=== PATIENT | male | born 1995 | race Caucasian/White ===

== ENCOUNTER 2017-10-19 18:15 | Emergency (ER) | payer OTHER ==
[~2017-10-19] VITALS: Ht 177.8 cm; Wt 99.0 kg
[2017-10-19 18:52] VITALS: BP 162/103; PULSE 96; RESP 18; TEMP 98.4; O2SAT 93
[2017-10-19] MEDS ORDERED: SERT25TA83 PO (19:45)
[2017-10-19 20:09] LABS: AUTOMATED NEUTROPHIL # 15.1 TH/MM3 (1.8-7.7); BASOPHIL % 0.2 % (0.0-2.0); EOSINOPHIL # 0.1 TH/MM3 (0-0.4); EOSINOPHIL % 0.6 % (0.0-4.0); HEMATOCRIT 52.2 % (39.0-51.0); LYMPH % 13.3 % (9.0-44.0); LYMPHOCYTE # 2.5 TH/MM3 (1.0-4.8); MEAN CORPUSCULAR HEMOGLOBIN 30.4 PG (27.0-34.0); MEAN CORPUSCULAR HGB CONC 34.5 % (32.0-36.0); MEAN PLATELET VOLUME 9.4 FL (7.0-11.0); MONO % 5.8 % (0.0-8.0); MONOCYTE # 1.1 TH/MM3 (0-0.9); NEUT % 80.1 % (16.0-70.0); PLATELET COUNT 276 TH/MM3 (150-450); RED BLOOD COUNT 5.92 MIL/MM3 (4.50-5.90); RED CELL DISTRIBUTION WIDTH 13.3 % (11.6-17.2); WHITE BLOOD COUNT 18.8 TH/MM3 (4.0-11.0)
[2017-10-19 20:15] LABS: ALBUMIN 4.5 GM/DL (3.4-5.0); AST (GOT) 20 U/L (15-37); BICARBONATE 23.9 MEQ/L (21.0-32.0); BLOOD UREA NITROGEN 17 MG/DL (7-18); CALCIUM 9.9 MG/DL (8.5-10.1); CHLORIDE 107 MEQ/L (98-107); CREATININE 0.92 MG/DL (0.60-1.30); GLOMERULAR FILTRATION RATE 104 ML/MIN (>89); GLUCOSE,RANDOM 107 MG/DL (74-106); SODIUM (NA) 139 MEQ/L (136-145)
[2017-10-19 20:17] LABS: ALKALINE PHOSPHATASE 123 U/L (45-117); ALT (GPT) 24 U/L (12-78); TOTAL BILIRUBIN ADULT 0.8 MG/DL (0.2-1.0); TOTAL PROTEIN 8.3 GM/DL (6.4-8.2)
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
== END 2017-10-19 21:15 | disposition home or self-care (01) ==
LOC: NEPJ 18:15
DX: F31.70 Bipolar disorder, currently in remission, most recent episode unspecified (principal); F43.10 Post-traumatic stress disorder, unspecified; Z79.899 Other long term (current) drug therapy
CPT/HCPCS: 80053; 80307; 85025; 99284

== ENCOUNTER 2017-12-07 14:13 | Emergency (ER) | payer SELFPAY ==
[~2017-12-07] VITALS: Ht 167.6 cm; Wt 100.0 kg
[~2017-12-07 14:13] MED LIST: SERT25TA83 PO
[2017-12-07 14:27] VITALS: BP 138/70; PULSE 107; RESP 22; TEMP 87; O2SAT 97
--- NOTE | 2017-12-07 16:24 | PD ---
HPI Chief Complaint: Alcohol/Drug Intoxication Time Seen by Provider: 15:15 Travel History International Travel<30 days: No Contact w/Intl Traveler<30days: No Traveled to known affect area: No History of Present Illness HPI 22-year-old male with history of bipolar disorder not taking his medications, presents emergency department under a [place] act. Patient has been drinking alcohol today. He denies suicidal homicidal ideations. He denies any illicit drug use at this time. He has no other symptoms to report. [facility] Past Medical History Anxiety: Yes Depression: Yes Diabetes: No Diminished Hearing: No Psychiatric: Yes Immunizations Current: Yes Tetanus Vaccination: < 5 Years Social History Alcohol Use: Yes Tobacco Use: Yes Substance Use: Yes Allergies-Medications (Allergen,Severity, Reaction): Coded Allergies: Penicillins (Verified Allergy, Severe, 12/07/17) Reported Meds & Prescriptions Reported Meds & Active Scripts Active Reported Sertraline (Sertraline HCl) 25 Mg Tab 25 Mg PO DAILY Review of Systems Except as stated in HPI: all other systems reviewed are Neg Physical Exam Narrative GENERAL: Well-nourished male patient, with strong smell of alcohol, dried vomit on history of. SKIN: Focused skin assessment warm/dry. HEAD: Atraumatic. Normocephalic. EYES: Pupils equal and round. No scleral icterus. No injection or drainage. ENT: No nasal bleeding or discharge. Mucous membranes pink and moist. NECK: Trachea midline. No JVD. CARDIOVASCULAR: Elevated rate and rhythm. No murmur appreciated. RESPIRATORY: No accessory muscle use. Clear to auscultation. Breath sounds equal bilaterally. GASTROINTESTINAL: Abdomen soft, non-tender, nondistended. Hepatic and splenic margins not palpable. MUSCULOSKELETAL: No obvious deformities. No clubbing. No cyanosis. No edema. NEUROLOGICAL: Awake and alert. No obvious cranial nerve deficits. Motor grossly within normal limits. Normal speech. PSYCHIATRIC: Appropriate mood and affect; insight and judgment questionable Data Data Last Documented VS Vital Signs Date Time Temp Pulse Resp B/P (MAP) Pulse Ox O2 Delivery O2 Flow Rate FiO2 12/07/17 16:06 Room Air 12/07/17 14:27 87.0 107 22 138/70 (92) 97 Orders Orders Ed Discharge Order (12/07/17 16:24) [facility] Medical Decision Making Medical Screen Exam Complete: Yes Emergency Medical Condition: Yes Medical Record Reviewed: Yes Differential Diagnosis Alcohol intoxication versus mood disorder versus personality disorder versus substance abuse Narrative Course 22-year-old male presents to the emergency department under a [place] act. Patient is ambulatory at this time and speaking clearly. If he is able to secure a safe ride home, he'll be discharged. Patient's grandmother has been contacted. She'll come and pick him up. He is counseled on alcohol consumption in moderation. He is provided outpatient resources for help if he needs it. Diagnosis Primary Impression: Alcohol intoxication Qualified Codes: F10.929 - Alcohol use, unspecified with intoxication, unspecified Referrals: [facility] (Out patient) Patient Instructions: General Instructions Additional Instructions: Consume alcohol in moderation Follow-up with a primary care provider Return immediately with any acute worsening of symptoms Med/Other Pt SpecificInfo: No Change to Meds Disposition: 01 DISCHARGE HOME Condition: Stable Rosetta Bermudez Dec 07, 2017 16:24
[2017-12-07 17:30] VITALS: BP 122/68
== END 2017-12-07 17:31 | disposition home or self-care (01) ==
LOC: NEDAMB 14:13
DX: F10.129 Alcohol abuse with intoxication, unspecified (principal); F41.9 Anxiety disorder, unspecified; F31.9 Bipolar disorder, unspecified; Z72.0 Tobacco use
CPT/HCPCS: 99282

== ENCOUNTER 2017-12-25 18:54 | Inpatient (IN) | payer OTHER ==
[~2017-12-25] VITALS: Ht 177.8 cm; Wt 94.2 kg
[2017-12-25 19:13] VITALS: BP 154/96; PULSE 92; RESP 18; TEMP 98.3; O2SAT 98
[2017-12-25 19:35] VITALS: BP 148/96
[2017-12-25 20:34] LABS: AUTOMATED NEUTROPHIL # 13.9 TH/MM3 (1.8-7.7); BASOPHIL % 0.3 % (0.0-2.0); EOSINOPHIL % 0.2 % (0.0-4.0); HEMATOCRIT 49.1 % (39.0-51.0); HEMOGLOBIN 16.9 GM/DL (13.0-17.0); LYMPH % 11.1 % (9.0-44.0); LYMPHOCYTE # 1.9 TH/MM3 (1.0-4.8); MEAN CELL VOLUME 84.3 FL (80.0-100.0); MEAN CORPUSCULAR HGB CONC 34.4 % (32.0-36.0); MONO % 5.6 % (0.0-8.0); MONOCYTE # 0.9 TH/MM3 (0-0.9); NEUT % 82.8 % (16.0-70.0); PLATELET COUNT 301 TH/MM3 (150-450); RED BLOOD COUNT 5.82 MIL/MM3 (4.50-5.90); RED CELL DISTRIBUTION WIDTH 12.8 % (11.6-17.2); WHITE BLOOD COUNT 16.8 TH/MM3 (4.0-11.0)
[2017-12-25 21:29] LABS: ALBUMIN 4.4 GM/DL (3.4-5.0); BLOOD UREA NITROGEN 10 MG/DL (7-18); CREATININE 0.91 MG/DL (0.60-1.30); GLOMERULAR FILTRATION RATE 105 ML/MIN (>89); GLUCOSE,RANDOM 97 MG/DL (74-106)
[2017-12-25 21:30] LABS: AST (GOT) 13 U/L (15-37); CALCIUM 9.2 MG/DL (8.5-10.1); CHLORIDE 108 MEQ/L (98-107); SODIUM (NA) 142 MEQ/L (136-145)
[2017-12-25 21:31] LABS: ALT (GPT) 20 U/L (12-78)
[2017-12-25 21:40] LABS: ALKALINE PHOSPHATASE 128 U/L (45-117); TOTAL BILIRUBIN ADULT 0.6 MG/DL (0.2-1.0); TOTAL PROTEIN 7.9 GM/DL (6.4-8.2)
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
[2017-12-25] MEDS ORDERED: ONDANSETRON ODT 4 MG TAB PO ONE (21:45)
[2017-12-25] MEDS ORDERED: diphenhydrAMINE HCL 50 MG CAP PO ONE (21:45)
[2017-12-26 02:16] VITALS: RESP 18
[2017-12-26] MEDS ORDERED: PANTOPRAZOLE SOD 40 MG DELAYED RELEASE TAB PO ONE (08:15)
[2017-12-26] MEDS ORDERED: LORazepam 2 MG/ML VIAL IM PRN ×2 (10:15)
[2017-12-26] MEDS ORDERED: LORazepam 1 MG TAB PO PRN (10:15)
[2017-12-26] MEDS ORDERED: LORazepam 0.5 MG TAB PO PRN (10:15)
[2017-12-26] MEDS ORDERED: MAGNESIUM HYDROXIDE SUSP 30 ML CUP PO PRN (10:15)
[2017-12-26] MEDS ORDERED: diphenhydrAMINE HCL 50 MG CAP PO ONE ×2 (10:30→21:30)
[2017-12-26] MEDS ORDERED: HALOPERIDOL 5 MG TAB PO ONE (10:30)
[2017-12-26] MEDS: SERTRALINE HCL 50 MG TAB PO SCH (10:44)
[2017-12-26] MEDS ORDERED: PILL SPLITTER OTHER PRN (10:45)
[2017-12-26 12:15] VITALS: BP 152/110; PULSE 94; RESP 18; TEMP 97.7; O2SAT 98
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
[2017-12-26] MEDS: ALUMINUM/MAGNESIUM/SIMETH 30 ML CUP PO PRN (15:03)
[2017-12-26 18:37] VITALS: BP 137/100
[2017-12-26] MEDS: REMOVE OLD NICODERM (NICOTINE) PATCH T-DERMAL SCH (20:53)
[2017-12-26] MEDS ORDERED: diphenhydrAMINE HCL 50 MG/ML VIAL ONE (21:10)
[2017-12-26] MEDS ORDERED: HALOPERIDOL LACTATE 5 MG/ML AMP ONE (21:10)
[2017-12-26] MEDS ORDERED: HALOPERIDOL LACTATE 5 MG/ML AMP IM ONE (21:30)
[2017-12-26] MEDS ORDERED: diphenhydrAMINE HCL 50 MG/ML VIAL IM ONE (21:30)
[2017-12-27] MEDS: ALUMINUM/MAGNESIUM/SIMETH 30 ML CUP PO PRN ×2 (02:21→11:26)
[2017-12-27 06:04] VITALS: BP 156/99; PULSE 102; RESP 20; TEMP 98; O2SAT 100
[2017-12-27] MEDS ORDERED: NICOTINE 21 MG/24 HR PATCH T-DERMAL SCH (09:00)
[2017-12-27] MEDS: SERTRALINE HCL 50 MG TAB PO SCH (09:00)
[2017-12-27 12:00] LABS: BICARBONATE 21.1 MEQ/L (21.0-32.0); BLOOD UREA NITROGEN 13 MG/DL (7-18); CALCIUM 9.9 MG/DL (8.5-10.1); CHLORIDE 110 MEQ/L (98-107); CREATININE 0.99 MG/DL (0.60-1.30); GLOMERULAR FILTRATION RATE 95 ML/MIN (>89); GLUCOSE,RANDOM 107 MG/DL (74-106); SODIUM (NA) 141 MEQ/L (136-145)
[2017-12-27 12:02] LABS: CHOLESTEROL 130 MG/DL (120-200); TRIGLYCERIDES 86 MG/DL (42-150)
[2017-12-27 12:05] LABS: HDL CHOLESTEROL 46.4 MG/DL (40.0-60.0); LDL CHOLESTEROL 66 MG/DL (0-99)
[2017-12-27] MEDS ORDERED: ALUMINUM/MAGNESIUM/SIMETH 30 ML CUP PO PRN (14:30)
[2017-12-27] MEDS ORDERED: MAGNESIUM HYDROXIDE SUSP 30 ML CUP PO PRN (14:30)
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
[2017-12-27] MEDS ORDERED: ONDANSETRON ODT 4 MG TAB PO ONE (15:15)
[2017-12-27] MEDS ORDERED: cloNIDine HCL 0.1 MG TAB PO PRN (16:00)
[2017-12-27] MEDS ORDERED: PROMETHAZINE HCL 25 MG SUPP RECTAL PRN (16:00)
[2017-12-27 16:52] VITALS: BP 148/95; PULSE 109; RESP 18; TEMP 97.3; O2SAT 100
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
[2017-12-27] MEDS: PROPRANOLOL HCL 10 MG TAB PO SCH ×2 (17:40→20:39)
[2017-12-27] MEDS: ONDANSETRON ODT 4 MG TAB PO PRN (20:40)
[2017-12-27] MEDS: REMOVE OLD NICODERM (NICOTINE) PATCH T-DERMAL SCH (20:44)
[2017-12-27 22:25] LABS: HEMOGLOBIN A1C 4.6 % (4.3-6.0)
[2017-12-28] MEDS: PROPRANOLOL HCL 10 MG TAB PO SCH ×3 (05:32→20:37)
[2017-12-28 05:49] VITALS: BP 149/75; PULSE 88; RESP 18; TEMP 98.2; O2SAT 100
[2017-12-28 07:06] LABS: AUTOMATED NEUTROPHIL # 8.3 TH/MM3 (1.8-7.7); BASOPHIL # 0.1 TH/MM3 (0-0.2); BASOPHIL % 0.5 % (0.0-2.0); EOSINOPHIL # 0.1 TH/MM3 (0-0.4); EOSINOPHIL % 0.9 % (0.0-4.0); LYMPH % 23.7 % (9.0-44.0); LYMPHOCYTE # 2.9 TH/MM3 (1.0-4.8); MEAN CELL VOLUME 86.4 FL (80.0-100.0); MEAN CORPUSCULAR HEMOGLOBIN 29.4 PG (27.0-34.0); MEAN CORPUSCULAR HGB CONC 34.1 % (32.0-36.0); MEAN PLATELET VOLUME 8.7 FL (7.0-11.0); MONO % 7.5 % (0.0-8.0); MONOCYTE # 0.9 TH/MM3 (0-0.9); NEUT % 67.4 % (16.0-70.0); PLATELET COUNT 249 TH/MM3 (150-450); RED BLOOD COUNT 5.44 MIL/MM3 (4.50-5.90); RED CELL DISTRIBUTION WIDTH 12.7 % (11.6-17.2); WHITE BLOOD COUNT 12.3 TH/MM3 (4.0-11.0)
[2017-12-28 07:41] LABS: ALBUMIN 3.9 GM/DL (3.4-5.0); BICARBONATE 26.4 MEQ/L (21.0-32.0); BLOOD UREA NITROGEN 14 MG/DL (7-18); CALCIUM 9.3 MG/DL (8.5-10.1); CHLORIDE 107 MEQ/L (98-107); CREATININE 0.88 MG/DL (0.60-1.30); GLOMERULAR FILTRATION RATE 109 ML/MIN (>89); GLUCOSE,RANDOM 99 MG/DL (74-106); MAGNESIUM 2.3 MG/DL (1.5-2.5); SODIUM (NA) 141 MEQ/L (136-145)
[2017-12-28 07:43] LABS: ALT (GPT) 17 U/L (12-78); AST (GOT) 11 U/L (15-37); PHOSPHORUS 3.8 MG/DL (2.5-4.9)
[2017-12-28 07:52] LABS: ALKALINE PHOSPHATASE 107 U/L (45-117); TOTAL BILIRUBIN ADULT 0.8 MG/DL (0.2-1.0); TOTAL PROTEIN 7.4 GM/DL (6.4-8.2)
[2017-12-28] MEDS ORDERED: NICOTINE 21 MG/24 HR PATCH T-DERMAL SCH (09:00)
[2017-12-28] MEDS: SERTRALINE HCL 50 MG TAB PO SCH (11:15)
[2017-12-28] MEDS: ONDANSETRON ODT 4 MG TAB PO PRN ×2 (11:15→15:54)
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
[2017-12-28] MEDS: hydrOXYzine HCL 50 MG TAB PO PRN (14:39)
[2017-12-28 14:52] LABS: HEMOGLOBIN A1C 4.7 % (4.3-6.0)
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
[2017-12-28 17:00] VITALS: BP 161/67; PULSE 84; RESP 18; TEMP 97.8; O2SAT 99
[2017-12-28] MEDS: REMOVE OLD NICODERM (NICOTINE) PATCH T-DERMAL SCH (20:54)
[2017-12-29] MEDS: PROPRANOLOL HCL 10 MG TAB PO SCH ×3 (05:37→21:10)
[2017-12-29 05:50] VITALS: BP 147/99; PULSE 82; RESP 16; TEMP 98.4; O2SAT 100
[2017-12-29] MEDS: SERTRALINE HCL 50 MG TAB PO SCH (07:39)
[2017-12-29] MEDS: ONDANSETRON ODT 4 MG TAB PO PRN ×3 (07:39→16:36)
--- NOTE | 2017-12-29 14:01 | HHI.PYPN ---
Subjective Remarks Reviewed electronic medical record and discussed case with staff. Follow-up was performed in the [facility] with staff present. Patient actively seeking discharge. Speech is clear, rapid, and pressured. His mood is irritable and his affect is oppositional. He is insistent that his blood pressure medicine has helped him with his anger. When asked why he had been admitted to this facility patient stated, "anger management". He then proceeded to deny being aggressive with his grandmother. He can readily regurgitate coping skills that he has learned in group activity. However, he does not acknowledge behavior that brought him here to begin with and when asked about it he responded, "I lied because I did not want you to get me in trouble with the law". Patient requests a detailed list of the behaviors that are expected of him in order to be discharged. Mental Status Examination Appearance: Appropriate Consciousness: Alert Orientation: x4 Motor Activity: Normal gait Speech: Unremarkable, Other (When told he would be staying the weekend speech became a bit pressured) Language: Adequate Fund of Knowledge: Adequate Attention and Concentration: Adequate Memory: Unremarkable Mood: Appropriate, Oppositional (Briefly when told he was staying the weekend, redirectable) Affect: Appropriate Thought Process & Associations: Intact, Goal directed (Towards discharge) Thought Content: Appropriate Hallucination Type: None Delusion Type: None Suicidal Ideation: No Suicidal Plan: No Suicidal Intention: No Homicidal Ideation: No Homicidal Plan: No Homicidal Intention: No Insight: Poor Judgment: Poor Results Labs Test 12/29/17 10:56 White Blood Count 16.0 TH/MM3 Red Blood Count 5.83 MIL/MM3 Hemoglobin 17.1 GM/DL Hematocrit 50.0 % Mean Corpuscular Volume 85.8 FL Mean Corpuscular Hemoglobin 29.4 PG Mean Corpuscular Hemoglobin Concent 34.3 % Red Cell Distribution Width 12.8 % Platelet Count 307 TH/MM3 Mean Platelet Volume 9.1 FL Date/Time Source Procedure Growth Status 12/27/17 22:05 Stool Stool Cryptosporidium Exam - Final NEGATIVE - NO CRYPTOSPORIDIUM ANTIGEN... Complete 12/27/17 22:05 Stool Stool Giardia Antigen (SHAMA) - Final NEGATIVE - NO GIARDIA ANTIGEN DETECTE... 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 He does seem eager to present expected behavior to the providers on their on the unit. However, staff is advised that patient has made statements that he would like to hurt other patients and gone into detail. Justification for Cont. Inpt. Moving this patient to a lower level of care would likely result in decompensation. At this time I feel that discharging him would present an imminent danger to his grandmother. Leila Rueda Dec 29, 2017 14:01
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
[2017-12-29] MEDS ORDERED: DIATRIZOATE MEGLUM/DIATRIZOATE SOD 9 ML CUP PO ONE (15:37)
[2017-12-29 16:02] LABS: AUTOMATED NEUTROPHIL # 11.4 TH/MM3 (1.8-7.7); BASOPHIL # 0.1 TH/MM3 (0-0.2); BASOPHIL % 0.4 % (0.0-2.0); EOSINOPHIL # 0.1 TH/MM3 (0-0.4); EOSINOPHIL % 0.5 % (0.0-4.0); LYMPHOCYTE # 2.5 TH/MM3 (1.0-4.8); MONOCYTE # 0.9 TH/MM3 (0-0.9); NEUT % 76.1 % (16.0-70.0); RED BLOOD COUNT 5.83 MIL/MM3 (4.50-5.90)
[2017-12-29 16:22] LABS: HEMOGLOBIN 17.1 GM/DL (13.0-17.0)
[2017-12-29 16:23] LABS: MEAN CELL VOLUME 85.8 FL (80.0-100.0); MEAN CORPUSCULAR HEMOGLOBIN 29.4 PG (27.0-34.0); MEAN CORPUSCULAR HGB CONC 34.3 % (32.0-36.0); MEAN PLATELET VOLUME 9.1 FL (7.0-11.0); PLATELET COUNT 307 TH/MM3 (150-450); RED CELL DISTRIBUTION WIDTH 12.8 % (11.6-17.2)
[2017-12-29 17:07] LABS: BANDS 1 % (0-6); BASOPHILS 1 % (0-2); LYMPHOCYTES 19 % (9-44); MONOCYTES 11 % (0-8); POLYS (SEG NEUTROPHILS) 68 % (16-70)
[2017-12-29] MEDS: carBAMazepine 200 MG TAB PO SCH (20:14)
[2017-12-29] MEDS: hydrOXYzine HCL 50 MG TAB PO PRN (20:15)
[2017-12-29] MEDS: REMOVE OLD NICODERM (NICOTINE) PATCH T-DERMAL SCH (21:00)
[2017-12-29] MEDS ORDERED: IOHEXOL 350 MG/ML 10 ML VIAL (for RAD DIAG) IVCONTRAST ONE (21:58)
--- NOTE | 2017-12-29 22:10 | RADRPT ---
EXAM DATE/TIME: 12/29/2017 21:50 [facility] COMPARISON: No previous studies available for comparison. INDICATIONS : Nausea. IV CONTRAST: 90 cc Omnipaque 350 (iohexol) IV ORAL CONTRAST: Prescribed oral contrast ingested. RADIATION DOSE: 14.74 CTDIvol (mGy) MEDICAL HISTORY : None SURGICAL HISTORY : None. ENCOUNTER: Initial ACUITY: 1 day PAIN SCALE: 5/10 LOCATION: abdomen TECHNIQUE: Volumetric scanning of the abdomen and pelvis was performed. Using automated exposure control and ad justment of the mA and/or kV according to patient size, radiation dose was kept as low as reasonably achievable to obtain optimal diagnostic quality images. DICOM format image data is available electro nically for review and comparison. FINDINGS: LOWER LUNGS: The visualized lower lungs are clear. LIVER: Homogeneous density without lesion. There is no dilation of the biliary tree. No calcified gallston es. SPLEEN: Normal size without lesion. PANCREAS: Within normal limits. KIDNEYS: Normal in size and shape. There is no mass, stone or hydronephrosis. ADRENAL GLANDS: Within normal limits. VASCULAR: There is no aortic aneurysm. BOWEL/MESENTERY: The stomach, small bowel, and colon demonstrate no acute abnormality. There is no free intraperitone al air or fluid. The appendix is normal. ABDOMINAL WALL: Within normal limits. RETROPERITONEUM: There is no lymphadenopathy. BLADDER: No wall thickening or mass. REPRODUCTIVE: Within normal limits. INGUINAL: There is no lymphadenopathy or hernia. MUSCULOSKELETAL: Within normal limits for patient age. CONCLUSION: No acute disease. Jasper Alonzo MD on December 29, 2017 at 22:07 Board Certified Radiologist. This report was verified electronically.
[2017-12-29 22:29] LABS: BILIRUBIN, URINE NEG (NEG); BLOOD, URINE NEG (NEG); GLUCOSE,URINE NEG (NEG); KETONE, URINE NEG (NEG); MUCUS URINE FEW /lpf (OCC); NITRITE,URINE NEG (NEG); URINE COLOR YELLOW (YELLW/STRAW); URINE LEUKOCYTE ESTERASE NEG (NEG)
[2017-12-30 05:32] VITALS: BP 138/95; PULSE 90; RESP 16; TEMP 97.7; O2SAT 99
[2017-12-30] MEDS: PROPRANOLOL HCL 10 MG TAB PO SCH ×3 (05:46→20:59)
[2017-12-30] MEDS: ONDANSETRON ODT 4 MG TAB PO PRN (06:20)
[2017-12-30] MEDS: SERTRALINE HCL 50 MG TAB PO SCH (08:16)
[2017-12-30] MEDS: carBAMazepine 200 MG TAB PO SCH ×2 (08:16→20:59)
[2017-12-30 08:50] LABS: HEMATOCRIT 48.4 % (39.0-51.0); HEMOGLOBIN 16.7 GM/DL (13.0-17.0); MEAN CELL VOLUME 84.2 FL (80.0-100.0); MEAN CORPUSCULAR HGB CONC 34.4 % (32.0-36.0); PLATELET COUNT 288 TH/MM3 (150-450); RED BLOOD COUNT 5.75 MIL/MM3 (4.50-5.90); RED CELL DISTRIBUTION WIDTH 12.7 % (11.6-17.2); WHITE BLOOD COUNT 13.3 TH/MM3 (4.0-11.0)
[2017-12-30 09:10] LABS: CALCIUM 9.6 MG/DL (8.5-10.1)
[2017-12-30] MEDS: hydrOXYzine HCL 50 MG TAB PO PRN ×2 (11:41→18:42)
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
[2017-12-30 17:57] VITALS: BP 135/82; PULSE 86; RESP 20; TEMP 98; O2SAT 98
[2017-12-30] MEDS: REMOVE OLD NICODERM (NICOTINE) PATCH T-DERMAL SCH (21:00)
[2017-12-31] VITALS: BP 130/100
[2017-12-31 05:46] VITALS: BP 121/92; PULSE 57; RESP 17; TEMP 97.6; O2SAT 100
[2017-12-31] MEDS: PROPRANOLOL HCL 10 MG TAB PO SCH ×3 (06:17→20:31)
[2017-12-31] MEDS: CALCIUM CARBONATE 500 MG CHEWABLE TAB CHEW PRN (06:56)
[2017-12-31] MEDS: SERTRALINE HCL 50 MG TAB PO SCH (08:25)
[2017-12-31] MEDS: carBAMazepine 200 MG TAB PO SCH ×2 (08:25→20:31)
[2017-12-31] MEDS: hydrOXYzine HCL 50 MG TAB PO PRN (10:15)
[2017-12-31] MEDS ORDERED: diphenhydrAMINE HCL 50 MG/ML VIAL IM STA (10:44)
[2017-12-31] MEDS ORDERED: OLANZapine IM 10 MG VIAL IM ONE ×2 (10:45→10:47)
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
--- NOTE | 2017-12-31 14:32 | RADRPT ---
EXAM DATE/TIME: 12/31/2017 13:54 [facility] COMPARISON: No previous studies available for comparison. INDICATIONS : Pain from having arm twisted behind his back. MEDICAL HISTORY : None. SURGICAL HISTORY : None. ENCOUNTER: Initial ACUITY: 1 day PAIN SCORE: 5/10 LOCATION: Left proximal humerus. FINDINGS: Two view examination of the left humerus demonstrates a nondisplaced fracture through the proximal hu merus at the surgical neck of the humeral head. Humeral shaft low is intact. Glenohumeral joint remains satisfactory aligned. Elbow joint is intact. CONCLUSION: Nondisplaced fracture through the proximal left humerus involving the surgical neck of the humeral he ad. Anmol Morgan MD on December 31, 2017 at 14:29 Board Certified Radiologist. This report was verified electronically.
--- NOTE | 2017-12-31 14:37 | RADRPT ---
EXAM DATE/TIME: 12/31/2017 13:54 [facility] COMPARISON: HUMERUS LEFT (MIN 2VWS), December 31, 2017, 13:54. INDICATIONS : Pain from having arm twisted behind his back. MEDICAL HISTORY : None. SURGICAL HISTORY : None. ENCOUNTER: Initial ACUITY: 1 day PAIN SCORE: 5/10 LOCATION: Left proximal humerus. FINDINGS: Two view examination of the left shoulder demonstrates a radiolucency through the proximal shaft of t he left humerus just below the humeral head. Radiographs of the left humerus suggest the presence of a nondisplaced fracture. The fracture is not clearly identified on focused views of the left shoulder . CONCLUSION: Questionable fracture involving the proximal left humerus. Further evaluation with CT of the shoulder should be considered. Anmol Morgan MD on December 31, 2017 at 14:30 Board Certified Radiologist. This report was verified electronically.
[2017-12-31 17:30] VITALS: BP 116/75; PULSE 75; RESP 18; TEMP 98.9; O2SAT 100
[2017-12-31] MEDS: REMOVE OLD NICODERM (NICOTINE) PATCH T-DERMAL SCH (20:31)
[2017-12-31] MEDS: ACETAMINOPHEN 325 MG TAB PO PRN (22:07)
[2018-01-01] MEDS: ACETAMINOPHEN 325 MG TAB PO PRN ×3 (04:16→18:43)
[2018-01-01] MEDS: PROPRANOLOL HCL 10 MG TAB PO SCH ×3 (04:51→21:11)
[2018-01-01 06:03] VITALS: BP 169/107; PULSE 98; RESP 18; TEMP 97; O2SAT 100
[2018-01-01] MEDS: carBAMazepine 200 MG TAB PO SCH ×2 (08:16→20:42)
[2018-01-01] MEDS: hydrOXYzine HCL 50 MG TAB PO PRN ×2 (08:17→21:11)
[2018-01-01] MEDS: ONDANSETRON ODT 4 MG TAB PO PRN (08:17)
[2018-01-01] MEDS: SERTRALINE HCL 50 MG TAB PO SCH (08:18)
--- NOTE | 2018-01-01 10:23 | PD.TTN ---
Patient Problems 1. Discharge planning 2. Medication compliance 3. Knowledge deficit 4. Lack of coping skills Progress Toward Goals Provider Present: Dr. Azul Norman, Dr. Ana Brewer Psychiatric Counselors Present: Rustam Washburn Jr., [facility], Nora Cedeño, [facility] , Sanna Uribe, [facility] Psych Therapist Input: Instrusive, lacks impulse control, BA court on 01/04/18 Group Spec/RT/OT/ONOFRE Present: ARMEN Gonsales Group Spec/RT/OT/ONOFRE Input: Pt attends the group activities. Pt is intrusive and oppositional towards staff. Pt has limited insight. Pt is religiously preoccupied. Discharge Plan Other Patient will be present at the Brandt Act hearing on 01/04/18 Documentation Scribe: Kaci Weiss Jan 01, 2018 10:23
[2018-01-01 10:56] VITALS: BP 124/86; PULSE 91
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
--- NOTE | 2018-01-01 13:49 | HHI.PYPN ---
Subjective Remarks Patient seen in his room with nurse know, patient laying quietly in bed, is more common subdued today though there is some drug-seeking and somatizations, now complaining of his bowel movements patient to frequent, wanting pill to make him go once a day. Then he asks about his dreams supple to make his dreams calmer. I discussed with him the need to be compliant with medications as we resolve some of the behavioral issues. Patient has been seen by orthopedics related to his left proximal humerus fracture. He is in a sling and swath per orthopedics. Review of Systems Except as stated in HPI: all other systems reviewed are Neg Mental Status Examination Appearance: Appropriate Consciousness: Alert Orientation: x4 Motor Activity: Normal gait Speech: Unremarkable, Other (When told he would be staying the weekend speech became a bit pressured) Language: Adequate Fund of Knowledge: Adequate Attention and Concentration: Adequate Memory: Unremarkable Mood: Angry, Oppositional (Briefly when told he was staying the weekend, redirectable), Irritable Affect: Irritable Thought Process & Associations: Intact, Goal directed (Towards discharge) Thought Content: Preoccupations, Obsessions Hallucination Type: None Delusion Type: None Suicidal Ideation: No Suicidal Plan: No Suicidal Intention: No Homicidal Ideation: No Homicidal Plan: No Homicidal Intention: No Insight: Poor Judgment: Poor Results Labs Test 01/01/18 09:00 Carbamazepine (Tegretol) Level 7.3 MCG/ML Date/Time Source Procedure Growth Status 12/27/17 22:05 Stool Stool Cryptosporidium Exam - Final NEGATIVE - NO CRYPTOSPORIDIUM ANTIGEN... Complete 12/27/17 22:05 Stool Stool Giardia Antigen (SHAMA) - Final NEGATIVE - NO GIARDIA ANTIGEN DETECTE... 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 He does complain of "nightmares" he states he does his best on his allowed to use his "medicinal" green card marijuana Justification for Cont. Inpt. At this time patient will decompensate of placed in a lower level of care Discharge Planning Patient continues under the Brandt act at this time discharge planning still needs to be determined Jasper Norman MD Jan 01, 2018 13:49
[2018-01-01 14:04] VITALS: BP 139/83; PULSE 97
[2018-01-01 17:10] VITALS: BP 153/74; PULSE 90; RESP 18; TEMP 97.6; O2SAT 100
--- NOTE | 2018-01-01 18:13 | RADRPT ---
EXAM DATE/TIME: 01/01/2018 17:04 [facility] COMPARISON: No previous studies available for comparison. INDICATIONS : Fracture. Left upper arm pain for two days. MEDICAL HISTORY : Hypertension. SURGICAL HISTORY : Inguinal hernia repair. ENCOUNTER: Initial ACUITY: 2 day PAIN SCORE: 8/10 LOCATION: Left upper arm. TECHNIQUE: Multiplanar multisequence MRI examination of the humerus was performed without contrast. FINDINGS: There is a minimally displaced fracture through the humeral neck with extensive adjacent marrow edema . No dislocation. Subchondral cystic change present in the humeral head. Trace joint fluid. There is some edematous changes in the soft tissues of the arm as well. CONCLUSION: 1. Mildly displaced fracture of the humeral neck. No dislocation. Lukas Rivera MD on January 01, 2018 at 18:08 Board Certified Radiologist. This report was verified electronically.
[2018-01-01] MEDS: REMOVE OLD NICODERM (NICOTINE) PATCH T-DERMAL SCH (21:00)
[2018-01-02] MEDS: ACETAMINOPHEN 325 MG TAB PO PRN ×4 (02:10→21:16)
[2018-01-02] MEDS: PROPRANOLOL HCL 10 MG TAB PO SCH ×3 (05:50→21:18)
[2018-01-02 06:15] VITALS: BP 138/91; PULSE 76; RESP 18; TEMP 97.3; O2SAT 100
[2018-01-02] MEDS: carBAMazepine 200 MG TAB PO SCH ×2 (09:00→21:16)
[2018-01-02] MEDS: SERTRALINE HCL 50 MG TAB PO SCH (09:00)
[2018-01-02] MEDS: hydrOXYzine HCL 50 MG TAB PO PRN ×2 (09:05→15:49)
[2018-01-02] MEDS: CALCIUM CARBONATE 500 MG CHEWABLE TAB CHEW PRN (09:06)
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
--- NOTE | 2018-01-02 10:47 | HHI.PYPN ---
Subjective Remarks Patient seen in day room with nurse Dawkins, chart review, patient compliant medications, patient discussed with nurse. Patient somewhat calmer less intrusive today, though Vistaril is no significant insight into his behaviors. He continues diffusely somatic. MRI of the shoulder done yesterday shows fracture of the right humerus Review of Systems Except as stated in HPI: all other systems reviewed are Neg Mental Status Examination Appearance: Appropriate Consciousness: Alert Orientation: x4 Motor Activity: Normal gait Speech: Unremarkable, Other (When told he would be staying the weekend speech became a bit pressured) Language: Adequate Fund of Knowledge: Adequate Attention and Concentration: Adequate Memory: Unremarkable Mood: Angry, Oppositional (Briefly when told he was staying the weekend, redirectable), Irritable Affect: Irritable Thought Process & Associations: Intact, Goal directed (Towards discharge) Thought Content: Preoccupations, Obsessions Hallucination Type: None Delusion Type: None Suicidal Ideation: No Suicidal Plan: No Suicidal Intention: No Homicidal Ideation: No Homicidal Plan: No Homicidal Intention: No Insight: Poor Judgment: Poor Results Labs Test 01/02/18 05:29 Carbamazepine (Tegretol) Level 5.9 MCG/ML Date/Time Source Procedure Growth Status 12/27/17 22:05 Stool Stool Cryptosporidium Exam - Final NEGATIVE - NO CRYPTOSPORIDIUM ANTIGEN... Complete 12/27/17 22:05 Stool Stool Giardia Antigen (SHAMA) - Final NEGATIVE - NO GIARDIA ANTIGEN DETECTE... 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 Patient compliant medications Justification for Cont. Inpt. This time patient will decompensate and placed in the lower level of care Discharge Planning To be determined Jasper Norman MD Jan 02, 2018 10:47
[2018-01-02] MEDS: REMOVE OLD NICODERM (NICOTINE) PATCH T-DERMAL SCH (21:00)
[2018-01-03] MEDS: hydrOXYzine HCL 50 MG TAB PO PRN ×2 (00:23→08:23)
[2018-01-03] MEDS: ACETAMINOPHEN 325 MG TAB PO PRN ×6 (01:10→22:57)
[2018-01-03] MEDS: PROPRANOLOL HCL 10 MG TAB PO SCH ×3 (05:46→20:54)
[2018-01-03 05:52] VITALS: BP 111/58; PULSE 87; RESP 18; TEMP 98.8; O2SAT 99
[2018-01-03] MEDS: SERTRALINE HCL 50 MG TAB PO SCH (08:23)
[2018-01-03] MEDS: carBAMazepine 200 MG TAB PO SCH ×2 (08:25→20:39)
--- NOTE | 2018-01-03 15:40 | HHI.PYPN ---
Subjective Remarks Patient seen in his room on 2700 with floor staff, chart review, patient compliant medications, patient discussed with nurse. Patient continues calm quiet spoken less intrusive intense or irritable. Complains of some occasional discomfort in his left shoulder. Patient scheduled for [employer] [facility] tomorrow. Patient still showing no significant insight into his behaviors consequences for his behaviors he continues to deflect all responsibility to others this is also been noted by the nursing staff Review of Systems Except as stated in HPI: all other systems reviewed are Neg Mental Status Examination Appearance: Appropriate Consciousness: Alert Orientation: x4 Motor Activity: Normal gait Speech: Unremarkable, Other (When told he would be staying the weekend speech became a bit pressured) Language: Adequate Fund of Knowledge: Adequate Attention and Concentration: Adequate Memory: Unremarkable Mood: Angry, Oppositional (Briefly when told he was staying the weekend, redirectable), Irritable Affect: Irritable Thought Process & Associations: Intact, Goal directed (Towards discharge) Thought Content: Preoccupations, Obsessions Hallucination Type: None Delusion Type: None Suicidal Ideation: No Suicidal Plan: No Suicidal Intention: No Homicidal Ideation: No Homicidal Plan: No Homicidal Intention: No Insight: Poor Judgment: Poor Results Labs Date/Time Source Procedure Growth Status 12/27/17 22:05 Stool Stool Cryptosporidium Exam - Final NEGATIVE - NO CRYPTOSPORIDIUM ANTIGEN... Complete 12/27/17 22:05 Stool Stool Giardia Antigen (SHAMA) - Final NEGATIVE - NO GIARDIA ANTIGEN DETECTE... 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 He is compliant medication. Patient scheduled for [employer] [facility] tomorrow Justification for Cont. Inpt. At this time patient will decompensate and placed in the lower level of care Discharge Planning This is to be determined Jasper Norman MD Jan 03, 2018 15:40
[2018-01-03 16:40] VITALS: BP 169/93; PULSE 109; RESP 18; TEMP 97; O2SAT 100
[2018-01-03] MEDS: REMOVE OLD NICODERM (NICOTINE) PATCH T-DERMAL SCH (21:00)
[2018-01-04 02:39] VITALS: BP 161/99
[2018-01-04] MEDS: PROPRANOLOL HCL 10 MG TAB PO SCH ×3 (06:09→21:05)
[2018-01-04 06:15] VITALS: BP 126/78; PULSE 91
[2018-01-04] MEDS: ACETAMINOPHEN 325 MG TAB PO PRN ×2 (06:35→22:32)
[2018-01-04] MEDS: SERTRALINE HCL 50 MG TAB PO SCH (08:52)
[2018-01-04] MEDS: carBAMazepine 200 MG TAB PO SCH ×2 (08:52→20:09)
[2018-01-04] MEDS: hydrOXYzine HCL 50 MG TAB PO PRN ×2 (08:52→16:56)
--- NOTE | 2018-01-04 13:52 | HHI.PYPN ---
Subjective Remarks Patient seen in [place] [address] patient retained by Senior Qa Analyst Allen with [facility] to be guardian advocate. Patient showed no affect doing all the presentation in [place] [address]. Though Senior [employer] Analyst Allen have the subjective feeling that he was glaring at her which made her feel quite uncomfortable. Patient's Tegretol level drawn on 01/02 is 5.9 on 100 mg twice a day will increase Tegretol to 100 mg a.m. 20 mg at bedtime and recheck level on 01/07 Review of Systems Except as stated in HPI: all other systems reviewed are Neg Mental Status Examination Appearance: Appropriate Consciousness: Alert Orientation: x4 Motor Activity: Normal gait Speech: Unremarkable, Other (When told he would be staying the weekend speech became a bit pressured) Language: Adequate Fund of Knowledge: Adequate Attention and Concentration: Adequate Memory: Unremarkable Mood: Angry, Oppositional (Briefly when told he was staying the weekend, redirectable), Irritable Affect: Irritable Thought Process & Associations: Intact, Goal directed (Towards discharge) Thought Content: Preoccupations, Obsessions Hallucination Type: None Delusion Type: None Suicidal Ideation: No Suicidal Plan: No Suicidal Intention: No Homicidal Ideation: No Homicidal Plan: No Homicidal Intention: No Insight: Poor Judgment: Poor Results Labs Date/Time Source Procedure Growth Status 12/27/17 22:05 Stool Stool Cryptosporidium Exam - Final NEGATIVE - NO CRYPTOSPORIDIUM ANTIGEN... Complete 12/27/17 22:05 Stool Stool Giardia Antigen (SHAMA) - Final NEGATIVE - NO GIARDIA ANTIGEN DETECTE... 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 We will try to meet with patient's grandmother tomorrow to discuss further treatment diagnosis and possible discharge and placement complications Justification for Cont. Inpt. At this point patient would decompensated placed in the lower level of care Discharge Planning To be determined Jasper Norman MD Jan 04, 2018 13:52
[2018-01-04 17:41] VITALS: BP 108/67; PULSE 104; RESP 16; TEMP 98.7; O2SAT 99
[2018-01-04] MEDS: REMOVE OLD NICODERM (NICOTINE) PATCH T-DERMAL SCH (21:00)
[2018-01-05] MEDS: PROPRANOLOL HCL 10 MG TAB PO SCH ×3 (05:44→21:28)
[2018-01-05 05:53] VITALS: BP 158/99; PULSE 80; RESP 18; TEMP 97.9; O2SAT 98
[2018-01-05] MEDS ORDERED: diphenhydrAMINE HCL 50 MG/ML VIAL IM STA (07:57)
[2018-01-05] MEDS ORDERED: HALOPERIDOL LACTATE 5 MG/ML AMP IM STA (07:57)
[2018-01-05] MEDS ORDERED: LORazepam 2 MG/ML VIAL IM STA (07:57)
[2018-01-05] MEDS ORDERED: LORazepam 2 MG/ML VIAL ONE (07:59)
[2018-01-05] MEDS: carBAMazepine 200 MG TAB PO SCH ×2 (08:48→21:56)
[2018-01-05] MEDS: SERTRALINE HCL 50 MG TAB PO SCH (08:48)
[2018-01-05] MEDS: hydrOXYzine HCL 50 MG TAB PO PRN (08:48)
--- NOTE | 2018-01-05 16:15 | HHI.PYPN ---
Subjective Remarks Patient seen in [facility] with nurse Michaela, chart review, patient showing compliance medication, patient discussed with nurse. Patient behavior has reverted to the similar intrusive ingratiating irritating narcissistic behaviors that for first seen on admission. He now continues to displace all his behaviors on other people's problems. He is unable to take any type of responsibility for his behaviors. He became short of control her this morning that it necessitated need to of Haldol Benadryl and Ativan. For now continue treatment. We did need with patient's grandmother this morning as of today she is adamant about not having him return to her home. She is afraid for her physical safety that he could seriously harm her. This is to the point where she may consider after his discharge getting a restraining order. He did discuss the possibility of finding some type of a 30 day dual diagnosis program for now continue treatment. We had have patient restricted to the unit with no off unit privileges to do his increasingly intrusive threatening behaviors Review of Systems Except as stated in HPI: all other systems reviewed are Neg Mental Status Examination Appearance: Appropriate Consciousness: Alert Orientation: x4 Motor Activity: Normal gait Speech: Unremarkable, Other (When told he would be staying the weekend speech became a bit pressured) Language: Adequate Fund of Knowledge: Adequate Attention and Concentration: Adequate Memory: Unremarkable Mood: Angry, Oppositional (Briefly when told he was staying the weekend, redirectable), Irritable Affect: Irritable Thought Process & Associations: Intact, Goal directed (Towards discharge) Thought Content: Preoccupations, Obsessions Hallucination Type: None Delusion Type: None Suicidal Ideation: No Suicidal Plan: No Suicidal Intention: No Homicidal Ideation: No Homicidal Plan: No Homicidal Intention: No Insight: Poor Judgment: Poor Results Labs Date/Time Source Procedure Growth Status 12/27/17 22:05 Stool Stool Cryptosporidium Exam - Final NEGATIVE - NO CRYPTOSPORIDIUM ANTIGEN... Complete 12/27/17 22:05 Stool Stool Giardia Antigen (SHAMA) - Final NEGATIVE - NO GIARDIA ANTIGEN DETECTE... 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 Inpt. At this time patient decompensated placed on lower level of care Discharge Planning To be determined Jasper Norman MD Jan 05, 2018 16:15
[2018-01-05 17:33] VITALS: BP 119/57; PULSE 85; RESP 17; TEMP 97.8; O2SAT 99
[2018-01-05] MEDS: REMOVE OLD NICODERM (NICOTINE) PATCH T-DERMAL SCH (21:00)
[2018-01-06] MEDS: ACETAMINOPHEN 325 MG TAB PO PRN ×2 (01:09→08:47)
[2018-01-06] MEDS: PROPRANOLOL HCL 10 MG TAB PO SCH ×3 (06:06→21:54)
[2018-01-06 06:21] VITALS: BP 125/88; PULSE 81; RESP 18; TEMP 97.6; O2SAT 99
[2018-01-06] MEDS: hydrOXYzine HCL 50 MG TAB PO PRN ×2 (08:46→14:53)
[2018-01-06] MEDS: SERTRALINE HCL 50 MG TAB PO SCH (08:46)
[2018-01-06] MEDS: carBAMazepine 200 MG TAB PO SCH ×2 (08:47→20:39)
--- NOTE | 2018-01-06 15:19 | HHI.PYPN ---
Subjective Remarks Reviewed electronic medical record and discussed case with staff. Follow-up was performed in patient's room with nurse present. Patient reports that he feels "sad, happy, and anxious". States that he has been unable to sleep due to the amount of pain he is an. He reports that his appetite is "horrible". Patient requesting to have additional pain medication from this provider. Requesting to have a different psychiatrist assigned to him. He states that "Dr. Norman wants to study me. I am not here to be studied". Mental Status Examination Appearance: Appropriate Consciousness: Alert Orientation: x4 Motor Activity: Normal gait Speech: Unremarkable, Other (When told he would be staying the weekend speech became a bit pressured) Language: Adequate Fund of Knowledge: Adequate Attention and Concentration: Adequate Memory: Unremarkable Mood: Angry, Oppositional (Briefly when told he was staying the weekend, redirectable), Irritable Affect: Irritable Thought Process & Associations: Intact, Goal directed (Towards discharge) Thought Content: Preoccupations, Obsessions Hallucination Type: None Delusion Type: None Suicidal Ideation: No Suicidal Plan: No Suicidal Intention: No Homicidal Ideation: No Homicidal Plan: No Homicidal Intention: No Insight: Poor Judgment: Poor Results Labs Date/Time Source Procedure Growth Status 12/27/17 22:05 Stool Stool Cryptosporidium Exam - Final NEGATIVE - NO CRYPTOSPORIDIUM ANTIGEN... Complete 12/27/17 22:05 Stool Stool Giardia Antigen (SHAMA) - Final NEGATIVE - NO GIARDIA ANTIGEN DETECTE... 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 He continues to be medication seeking. We will continue with treatment plan as ordered. Justification for Cont. Inpt. Moving this patient to a lower level of care would likely result in a decompensation. Is believed that he poses a danger to others. Leila Rueda Jan 06, 2018 15:19
[2018-01-06 16:47] VITALS: BP 132/75; PULSE 88; RESP 18; TEMP 98.9; O2SAT 98
[2018-01-06] MEDS: IBUPROFEN 600 MG TAB PO PRN (19:00)
[2018-01-06] MEDS: REMOVE OLD NICODERM (NICOTINE) PATCH T-DERMAL SCH (21:00)
[2018-01-07] MEDS: PROPRANOLOL HCL 10 MG TAB PO SCH ×3 (05:18→21:14)
[2018-01-07 06:16] VITALS: BP 140/90; PULSE 86; RESP 17; TEMP 98; O2SAT 97
[2018-01-07] MEDS: IBUPROFEN 600 MG TAB PO PRN ×2 (06:45→16:37)
[2018-01-07] MEDS: hydrOXYzine HCL 50 MG TAB PO PRN ×2 (08:31→20:38)
[2018-01-07] MEDS: SERTRALINE HCL 50 MG TAB PO SCH (08:31)
[2018-01-07] MEDS: carBAMazepine 200 MG TAB PO SCH ×2 (08:31→20:38)
--- NOTE | 2018-01-07 11:01 | HHI.PYPN ---
Subjective Remarks Reviewed electronic medical record, labs, and discussed case with staff. Patient's carbamazepine level is therapeutic. Follow-up was performed in the hallway. Patient reports feeling "sad, anxious, and happy". He states that he only slept for 4 hours. He reports that his appetite has been good. Advised patient that he should ask for the Atarax shortly before going to bed. Patient continues discharge seeking. He again asked how he could gets a different psychiatrist. He states that per other patients, "Dr. Norman has been keeping patient's past the average state". When staff tried to explain to Mr. rush that there is not a "average stay" he became argumentative. When this provider advised that I would not argue with the patient, he loudly stated, " how is anyone supposed to prosper around here". Patient has been observed throughout the day making sexually inappropriate comments through the window to the female nurses. Mental Status Examination Appearance: Appropriate Consciousness: Alert Orientation: x4 Motor Activity: Normal gait Speech: Unremarkable, Other (When told he would be staying the weekend speech became a bit pressured) Language: Adequate Fund of Knowledge: Adequate Attention and Concentration: Adequate Memory: Unremarkable Mood: Angry, Oppositional (Briefly when told he was staying the weekend, redirectable), Irritable Affect: Irritable Thought Process & Associations: Intact, Goal directed (Towards discharge) Thought Content: Preoccupations, Obsessions Hallucination Type: None Delusion Type: None Suicidal Ideation: No Suicidal Plan: No Suicidal Intention: No Homicidal Ideation: No Homicidal Plan: No Homicidal Intention: No Insight: Poor Judgment: Poor Results Labs Test 01/07/18 08:07 Carbamazepine (Tegretol) Level 7.1 MCG/ML Date/Time Source Procedure Growth Status 12/27/17 22:05 Stool Stool Cryptosporidium Exam - Final NEGATIVE - NO CRYPTOSPORIDIUM ANTIGEN... Complete 12/27/17 22:05 Stool Stool Giardia Antigen (SHAMA) - Final NEGATIVE - NO GIARDIA ANTIGEN DETECTE... 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 We will continue with current treatment plan. Justification for Cont. Inpt. Moving patient to a lower level of care would likely result in decompensation. Leila Rueda Jan 07, 2018 11:01
[2018-01-07 17:13] VITALS: BP 149/95; PULSE 85; RESP 17; TEMP 98.6; O2SAT 98
[2018-01-07] MEDS: REMOVE OLD NICODERM (NICOTINE) PATCH T-DERMAL SCH (20:36)
[2018-01-08] MEDS: hydrOXYzine HCL 50 MG TAB PO PRN ×2 (03:24→23:23)
[2018-01-08] MEDS: IBUPROFEN 600 MG TAB PO PRN ×2 (03:30→14:17)
[2018-01-08] MEDS: PROPRANOLOL HCL 10 MG TAB PO SCH ×3 (06:12→21:39)
[2018-01-08 06:37] VITALS: BP 137/90; PULSE 100; RESP 18; TEMP 97.9; O2SAT 100
[2018-01-08] MEDS: SERTRALINE HCL 50 MG TAB PO SCH (08:26)
[2018-01-08] MEDS: carBAMazepine 200 MG TAB PO SCH ×2 (08:26→20:36)
--- NOTE | 2018-01-08 12:08 | HHI.PYPN ---
Subjective Remarks Patient seen on unit with nurse Aurora, chart review, patient discussed with nurse, patient compliant medication. It appears patient had a fairly quiet weekend while is somewhat intrusive and ingratiating he is able to be redirected. Today patient states he talked to his grandmother over the weekend and he stated that she was willing to have him come back home. I just talked with the patient's grandmother. She denies that conversation stating that she did talk to her grandson that he demanded to be released home that he would take over running the house paying the bills and taking care of her. She continues to feel in danger if he returns home. She is strongly she does not want him in the home well deny him entrance to the home. She states reluctance in place the facility. Though that may not be an easy thing to accomplish. I did share with grandmother the possibility that he would be a homeless discharge. After the phone call I went back and shared with the patient and his grandmother's position on him not coming home. He showed no response to that. I also mentioned that the possibility is that he may be a homeless discharge. Otherwise patient central level is somewhat low will increase Tegretol to 200 mg twice a day check level on 01/12 Review of Systems Except as stated in HPI: all other systems reviewed are Neg Mental Status Examination Appearance: Appropriate Consciousness: Alert Orientation: x4 Motor Activity: Normal gait Speech: Unremarkable, Other (When told he would be staying the weekend speech became a bit pressured) Language: Adequate Fund of Knowledge: Adequate Attention and Concentration: Adequate Memory: Unremarkable Mood: Angry, Oppositional (Briefly when told he was staying the weekend, redirectable), Irritable Affect: Irritable Thought Process & Associations: Intact, Goal directed (Towards discharge) Thought Content: Preoccupations, Obsessions Hallucination Type: None Delusion Type: None Suicidal Ideation: No Suicidal Plan: No Suicidal Intention: No Homicidal Ideation: No Homicidal Plan: No Homicidal Intention: No Insight: Poor Judgment: Poor Results Labs Date/Time Source Procedure Growth Status 12/27/17 22:05 Stool Stool Cryptosporidium Exam - Final NEGATIVE - NO CRYPTOSPORIDIUM ANTIGEN... Complete 12/27/17 22:05 Stool Stool Giardia Antigen (SHAMA) - Final NEGATIVE - NO GIARDIA ANTIGEN DETECTE... 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 She medication adjustment above. Placement become quite problematic Justification for Cont. Inpt. This time patient will decompensate and placed a lower level of care Discharge Planning To be determined Jasper Norman MD Jan 08, 2018 12:08
[2018-01-08 17:07] VITALS: BP 145/99; PULSE 82; RESP 16; TEMP 98.2; O2SAT 99
[2018-01-08] MEDS: REMOVE OLD NICODERM (NICOTINE) PATCH T-DERMAL SCH (20:36)
[2018-01-09 05:56] VITALS: BP 119/69; PULSE 71; RESP 18; TEMP 97.1; O2SAT 98
[2018-01-09] MEDS: PROPRANOLOL HCL 10 MG TAB PO SCH ×2 (06:00→13:54)
[2018-01-09] MEDS: IBUPROFEN 600 MG TAB PO PRN (08:41)
[2018-01-09] MEDS: carBAMazepine 200 MG TAB PO SCH (08:42)
[2018-01-09] MEDS: hydrOXYzine HCL 50 MG TAB PO PRN (08:42)
[2018-01-09] MEDS: SERTRALINE HCL 50 MG TAB PO SCH (08:42)
--- NOTE | 2018-01-09 08:54 | PD.TTN ---
Patient Problems 1. Discharge planning 2. Medication compliance 3. Knowledge deficit 4. Lack of coping skills Progress Toward Goals Provider Present: Dr. Azul Norman, Dr. Ana Brewer Provider Input: 01/08/18 patient remains a behavior problem however not improving being here, continue to offer further therapy and follow up outpatient, for counselor to assist with follow up and contacting family and title officer Psychiatric Counselors Present: Rustam Washburn Jr., [facility], Nora Cedeño, [facility] , Sanna Uribe, [facility] Psych Therapist Input: 01/08/18 counselor linen supervisor to call grandmother and discuss discharge plan for her safety , for counselor to offer [facility] again- but he later refused, he remains with no insight and no motivation for treatment Instrusive, lacks impulse control, BA court on 01/04/18 Group Spec/RT/OT/ONOFRE Present: ARMEN Gonsales Group Spec/RT/OT/ONOFRE Input: 01/08/18 he attnes some groups but is disruptive Pt attends the group activities. Pt is intrusive and oppositional towards staff. Pt has limited insight. Pt is religiously preoccupied. Discharge Plan Other Patient will be present at the Brandt Act hearing on 01/04/18 Documentation Scribe: Delia Tolbert LCSW Jan 09, 2018 08:54
[2018-01-09] MEDS ORDERED: CARB200T PO (11:47)
[2018-01-09] MEDS ORDERED: SERT25TA83 PO (11:47)
[2018-01-09] MEDS ORDERED: PROP10TA6 PO (11:47)
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
== END 2018-01-09 14:25 | disposition home or self-care (01) | DRG 882 ==
LOC: NEDAMB 18:54 → NEDA 12-26 10:18 → H270 12-26 11:20
PROVIDERS: ADMIT Psychiatry & Neurology Psychiatry; ATTEND Psychiatry & Neurology Psychiatry
DX: F43.24 Adjustment disorder with disturbance of conduct (principal); F60.2 Antisocial personality disorder; G62.9 Polyneuropathy, unspecified; S42.212A Unspecified displaced fracture of surgical neck of left humerus, initial encounter for closed fracture; Z78.1 Physical restraint status; F31.9 Bipolar disorder, unspecified; F43.10 Post-traumatic stress disorder, unspecified; F12.90 Cannabis use, unspecified, uncomplicated; F60.81 Narcissistic personality disorder; Q86.0 Fetal alcohol syndrome (dysmorphic); Z65.3 Problems related to other legal circumstances; Z72.0 Tobacco use; Z72.89 Other problems related to lifestyle; R11.2 Nausea with vomiting, unspecified; Z83.3 Family history of diabetes mellitus; R00.0 Tachycardia, unspecified; X58.XXXA Exposure to other specified factors, initial encounter; Y93.F9 Activity, other caregiving; Y92.239 Unspecified place in hospital as the place of occurrence of the external cause; Y99.9 Unspecified external cause status; Z59.0 Homelessness; Z76.5 Malingerer [conscious simulation]; Z88.0 Allergy status to penicillin; F19.94 Other psychoactive substance use, unspecified with psychoactive substance-induced mood disorder; D72.829 Elevated white blood cell count, unspecified
CPT/HCPCS: 73030; 73060; 73218; 74177; 80048; 80053; 80061; 80156; 80307; 81001; 83036; 83735; 84100; 84439; 84443; 85007; 85025; 85027; 87328; 87329; 87493; 87506; J1200; J1630; J2060; Q0163; Q9963; Q9967

== ENCOUNTER 2018-01-20 18:04 | Emergency (ER) | payer SELFPAY ==
[~2018-01-20] VITALS: Ht 170.2 cm; Wt 95.0 kg
[~2018-01-20 18:04] MED LIST changes: +CARB200T PO; +PROP10TA6 PO
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
[2018-01-20] MEDS ORDERED: LORazepam 2 MG/ML VIAL IM ONE (18:15)
[2018-01-20] MEDS ORDERED: diphenhydrAMINE HCL 50 MG/ML VIAL IM ONE (18:15)
[2018-01-20] MEDS ORDERED: HALOPERIDOL LACTATE 5 MG/ML AMP IM ONE (18:15)
[2018-01-20 18:26] VITALS: BP 118/71; PULSE 95; RESP 16; TEMP 97.9; O2SAT 99
[2018-01-20 19:18] LABS: AUTOMATED NEUTROPHIL # 10.3 TH/MM3 (1.8-7.7); BASOPHIL # 0.1 TH/MM3 (0-0.2); BASOPHIL % 0.4 % (0.0-2.0); EOSINOPHIL # 0.1 TH/MM3 (0-0.4); EOSINOPHIL % 0.6 % (0.0-4.0); HEMATOCRIT 47.2 % (39.0-51.0); HEMOGLOBIN 16.1 GM/DL (13.0-17.0); LYMPH % 17.2 % (9.0-44.0); LYMPHOCYTE # 2.4 TH/MM3 (1.0-4.8); MEAN CELL VOLUME 86.4 FL (80.0-100.0); MEAN CORPUSCULAR HEMOGLOBIN 29.4 PG (27.0-34.0); MEAN PLATELET VOLUME 8.4 FL (7.0-11.0); MONO % 7.5 % (0.0-8.0); NEUT % 74.3 % (16.0-70.0); PLATELET COUNT 287 TH/MM3 (150-450); RED BLOOD COUNT 5.46 MIL/MM3 (4.50-5.90); RED CELL DISTRIBUTION WIDTH 13.6 % (11.6-17.2); WHITE BLOOD COUNT 13.9 TH/MM3 (4.0-11.0)
[2018-01-20 19:53] LABS: ALBUMIN 3.8 GM/DL (3.4-5.0); AST (GOT) 26 U/L (15-37); BICARBONATE 19.6 MEQ/L (21.0-32.0); BLOOD UREA NITROGEN 15 MG/DL (7-18); CALCIUM 8.8 MG/DL (8.5-10.1); CHLORIDE 108 MEQ/L (98-107); CREATININE 0.83 MG/DL (0.60-1.30); GLOMERULAR FILTRATION RATE 117 ML/MIN (>89); GLUCOSE,RANDOM 86 MG/DL (74-106); SODIUM (NA) 142 MEQ/L (136-145)
[2018-01-20 19:54] LABS: ALT (GPT) 36 U/L (12-78)
[2018-01-20 19:59] LABS: TOXIC VACUOLATION PRESENT (NONE SEEN)
[2018-01-20 20:03] LABS: ALKALINE PHOSPHATASE 138 U/L (45-117); TOTAL BILIRUBIN ADULT 0.2 MG/DL (0.2-1.0); TOTAL PROTEIN 7.6 GM/DL (6.4-8.2)
[2018-01-20 20:09] LABS: ACETAMINOPHEN LESS THAN 2.0 MCG/ML (10.0-30.0)
[2018-01-21 02:38] LABS: BILIRUBIN, URINE NEG (NEG); BLOOD, URINE NEG (NEG); GLUCOSE,URINE NEG (NEG); HYALINE CAST, URINE 3 /lpf (RARE); KETONE, URINE TRACE mg/dL (NEG); MUCUS URINE FEW /lpf (OCC); NITRITE,URINE NEG (NEG); PH, URINE 5.5 (5.0-8.5); URINE COLOR YELLOW (YELLW/STRAW); URINE LEUKOCYTE ESTERASE NEG (NEG)
--- NOTE | 2018-01-21 02:42 | PD ---
Physical Exam Date Seen by Provider: Jan 21, 2018 Time Seen by Provider: 19:00 Narrative Patient was signed out to me by Dr. Kim at change of shift. The patient had presented combative and severely agitated. He was given Haldol and Ativan and Benadryl. He was sleeping off. We were awaiting laboratory tests. Data Data Last Documented VS Vital Signs Date Time Temp Pulse Resp B/P (MAP) Pulse Ox O2 Delivery O2 Flow Rate FiO2 01/20/18 18:26 97.9 95 16 118/71 (87) 99 Orders Orders Diphenhydramine Inj (Benadryl Inj) (01/20/18 18:15) Haloperidol Inj (Haldol Inj) (01/20/18 18:15) Lorazepam Inj (Ativan Inj) (01/20/18 18:15) Complete Blood Count With Diff (01/20/18 18:13) Comprehensive Metabolic Panel (01/20/18 18:13) Thyroid Stimulating Hormone (01/20/18 18:13) Urinalysis - C+S If Indicated (01/20/18 18:13) Electrocardiogram (01/20/18 18:13) Drug Screen, Random Urine (01/20/18 18:13) Alcohol (Ethanol) (01/20/18 18:13) Salicylates (Aspirin) (01/20/18 18:13) Tylenol (Acetaminophen) (01/20/18 18:13) Psych Screen (01/21/18 02:03) Sertraline (Zoloft) (01/21/18 02:45) Lorazepam Inj (Ativan Inj) (01/21/18 02:45) Ondansetron Odt (Zofran Odt) (01/21/18 03:15) Labs Laboratory Tests Test 01/20/18 18:39 01/21/18 01:35 White Blood Count 13.9 TH/MM3 Red Blood Count 5.46 MIL/MM3 Hemoglobin 16.1 GM/DL Hematocrit 47.2 % Mean Corpuscular Volume 86.4 FL Mean Corpuscular Hemoglobin 29.4 PG Mean Corpuscular Hemoglobin Concent 34.0 % Red Cell Distribution Width 13.6 % Platelet Count 287 TH/MM3 Mean Platelet Volume 8.4 FL Neutrophils (%) (Auto) 74.3 % Lymphocytes (%) (Auto) 17.2 % Monocytes (%) (Auto) 7.5 % Eosinophils (%) (Auto) 0.6 % Basophils (%) (Auto) 0.4 % Neutrophils # (Auto) 10.3 TH/MM3 Lymphocytes # (Auto) 2.4 TH/MM3 Monocytes # (Auto) 1.0 TH/MM3 Eosinophils # (Auto) 0.1 TH/MM3 Basophils # (Auto) 0.1 TH/MM3 CBC Comment AUTO DIFF Differential Comment AUTO DIFF CONFIRMED Toxic Vacuolation PRESENT Platelet Estimate NORMAL Platelet Morphology Comment NORMAL Blood Urea Nitrogen 15 MG/DL Creatinine 0.83 MG/DL Random Glucose 86 MG/DL Total Protein 7.6 GM/DL Albumin 3.8 GM/DL Calcium Level 8.8 MG/DL Alkaline Phosphatase 138 U/L Aspartate Amino Transf (AST/SGOT) 26 U/L Alanine Aminotransferase (ALT/SGPT) 36 U/L Total Bilirubin 0.2 MG/DL Sodium Level 142 MEQ/L Potassium Level 3.5 MEQ/L Chloride Level 108 MEQ/L Carbon Dioxide Level 19.6 MEQ/L Anion Gap 14 MEQ/L Estimat Glomerular Filtration Rate 117 ML/MIN Thyroid Stimulating Hormone 3rd Gen 0.782 uIU/ML Salicylates Level LESS THAN 1.7 MG/DL Acetaminophen Level LESS THAN 2.0 MCG/ML Ethyl Alcohol Level 233 MG/DL Urine Color YELLOW Urine Turbidity CLEAR Urine pH 5.5 Urine Specific [place] 1.023 Urine Protein TRACE mg/dL Urine Glucose (UA) NEG mg/dL Urine Ketones TRACE mg/dL Urine Occult Blood NEG Urine Nitrite NEG Urine Bilirubin NEG Urine Urobilinogen LESS THAN 2.0 MG/DL Urine Leukocyte Esterase NEG Urine WBC 1 /hpf Urine Hyaline Casts 3 /lpf Urine Mucus FEW /lpf Microscopic Urinalysis Comment CULT NOT INDICATED Urine Opiates Screen NEG Urine Barbiturates Screen NEG Urine Amphetamines Screen NEG Urine Benzodiazepines Screen NEG Urine Cocaine Screen NEG Urine Cannabinoids Screen POS MDM Medical Record Reviewed: Yes Supervised Visit with YAHAIRA: No Narrative Course 22-year-old male presents acutely agitated and aggressive. The patient was medicated with Haldol, Benadryl, Ativan. Patient has an alcohol level 233. He had marijuana noted on his tox screen. The patient is awake and appropriate. He is requesting psychiatric evaluation. Patient states she has had a psych history and takes psychiatric medications but has not been able to afford them. He lives with his grandmother. He has been given Ativan 1 mg IV 1 dose. He will also be given 1 dose of his Zoloft medication. He will be medically cleared for psychiatric evaluation in the morning. Diagnosis Primary Impression: Adjustment disorder with disturbance of conduct Additional Impressions: Polysubstance abuse Medication noncompliance Eligio Evans MD Jan 21, 2018 02:42
[2018-01-21] MEDS ORDERED: LORazepam 2 MG/ML VIAL IV PUSH ONE (02:45)
[2018-01-21] MEDS ORDERED: SERTRALINE HCL 50 MG TAB PO ONE (02:45)
[2018-01-21] MEDS ORDERED: ONDANSETRON ODT 4 MG TAB PO ONE (03:15)
[2018-01-21 08:29] VITALS: BP 144/79; PULSE 112; RESP 16; O2SAT 97
[2018-01-21 12:00] VITALS: BP 145/80; PULSE 100; RESP 17; O2SAT 100
--- NOTE | 2018-01-21 13:10 | PD ---
Physical Exam Narrative I was informed by the nurse that pt now wants to leave. Pt was seen by previous physician and I was told that pt wanted to see a psychiatrist and was voluntary. Pt now said he does not want to see a psychiatrist and denies any suicidal or homicidal ideations. Denies any visual or auditory hallucinations. Data Data Last Documented VS Vital Signs Date Time Temp Pulse Resp B/P (MAP) Pulse Ox O2 Delivery O2 Flow Rate FiO2 01/21/18 08:29 112 16 144/79 (100) 97 Room Air 01/20/18 18:26 97.9 Orders Orders Diphenhydramine Inj (Benadryl Inj) (01/20/18 18:15) Haloperidol Inj (Haldol Inj) (01/20/18 18:15) Lorazepam Inj (Ativan Inj) (01/20/18 18:15) Complete Blood Count With Diff (01/20/18 18:13) Comprehensive Metabolic Panel (01/20/18 18:13) Thyroid Stimulating Hormone (01/20/18 18:13) Urinalysis - C+S If Indicated (01/20/18 18:13) Electrocardiogram (01/20/18 18:13) Drug Screen, Random Urine (01/20/18 18:13) Alcohol (Ethanol) (01/20/18 18:13) Salicylates (Aspirin) (01/20/18 18:13) Tylenol (Acetaminophen) (01/20/18 18:13) Psych Screen (01/21/18 02:03) Sertraline (Zoloft) (01/21/18 02:45) Lorazepam Inj (Ativan Inj) (01/21/18 02:45) Ondansetron Odt (Zofran Odt) (01/21/18 03:15) Diet Regular Basic (01/21/18 Breakfast) Labs Laboratory Tests Test 01/20/18 18:39 01/21/18 01:35 White Blood Count 13.9 TH/MM3 Red Blood Count 5.46 MIL/MM3 Hemoglobin 16.1 GM/DL Hematocrit 47.2 % Mean Corpuscular Volume 86.4 FL Mean Corpuscular Hemoglobin 29.4 PG Mean Corpuscular Hemoglobin Concent 34.0 % Red Cell Distribution Width 13.6 % Platelet Count 287 TH/MM3 Mean Platelet Volume 8.4 FL Neutrophils (%) (Auto) 74.3 % Lymphocytes (%) (Auto) 17.2 % Monocytes (%) (Auto) 7.5 % Eosinophils (%) (Auto) 0.6 % Basophils (%) (Auto) 0.4 % Neutrophils # (Auto) 10.3 TH/MM3 Lymphocytes # (Auto) 2.4 TH/MM3 Monocytes # (Auto) 1.0 TH/MM3 Eosinophils # (Auto) 0.1 TH/MM3 Basophils # (Auto) 0.1 TH/MM3 CBC Comment AUTO DIFF Differential Comment AUTO DIFF CONFIRMED Toxic Vacuolation PRESENT Platelet Estimate NORMAL Platelet Morphology Comment NORMAL Blood Urea Nitrogen 15 MG/DL Creatinine 0.83 MG/DL Random Glucose 86 MG/DL Total Protein 7.6 GM/DL Albumin 3.8 GM/DL Calcium Level 8.8 MG/DL Alkaline Phosphatase 138 U/L Aspartate Amino Transf (AST/SGOT) 26 U/L Alanine Aminotransferase (ALT/SGPT) 36 U/L Total Bilirubin 0.2 MG/DL Sodium Level 142 MEQ/L Potassium Level 3.5 MEQ/L Chloride Level 108 MEQ/L Carbon Dioxide Level 19.6 MEQ/L Anion Gap 14 MEQ/L Estimat Glomerular Filtration Rate 117 ML/MIN Thyroid Stimulating Hormone 3rd Gen 0.782 uIU/ML Salicylates Level LESS THAN 1.7 MG/DL Acetaminophen Level LESS THAN 2.0 MCG/ML Ethyl Alcohol Level 233 MG/DL Urine Color YELLOW Urine Turbidity CLEAR Urine pH 5.5 Urine Specific [place] 1.023 Urine Protein TRACE mg/dL Urine Glucose (UA) NEG mg/dL Urine Ketones TRACE mg/dL Urine Occult Blood NEG Urine Nitrite NEG Urine Bilirubin NEG Urine Urobilinogen LESS THAN 2.0 MG/DL Urine Leukocyte Esterase NEG Urine WBC 1 /hpf Urine Hyaline Casts 3 /lpf Urine Mucus FEW /lpf Microscopic Urinalysis Comment CULT NOT INDICATED Urine Opiates Screen NEG Urine Barbiturates Screen NEG Urine Amphetamines Screen NEG Urine Benzodiazepines Screen NEG Urine Cocaine Screen NEG Urine Cannabinoids Screen POS MDM Supervised Visit with YAHAIRA: No Diagnosis Primary Impression: Adjustment disorder with disturbance of conduct Additional Impressions: Polysubstance abuse Medication noncompliance Patient Instructions: General Instructions Departure Forms: Tests/Procedures Additional Instruction: Please follow up with your psychiatrist in 2-3 days. Return to the ED if symptoms worsen. Med/Other Pt SpecificInfo: No Change to Meds Disposition: 01 DISCHARGE HOME Condition: Stable Helen Zuñiga DO Jan 21, 2018 13:10
--- NOTE | 2018-01-22 00:32 | EKG ---
Date Performed: 01/20/2018 Time Performed: 18:56:06 PTAGE: 22 years EKG: SINUS TACHYCARDIA NONSPECIFIC ST & T-WAVE ABNORMALITY ABNORMAL RHYTHM ECG NO PREVIOUS TRACING DOCTOR: Rodrigo Islas Interpretating Date/Time 01/22/2018 00:30:18
== END 2018-01-21 13:33 | disposition home or self-care (01) ==
LOC: NEPE 18:04
DX: F43.24 Adjustment disorder with disturbance of conduct (principal); F19.10 Other psychoactive substance abuse, uncomplicated; Z91.14 Patient's other noncompliance with medication regimen; R94.31 Abnormal electrocardiogram [ECG] [EKG]; F31.9 Bipolar disorder, unspecified; F41.8 Other specified anxiety disorders; Z72.0 Tobacco use; Z79.899 Other long term (current) drug therapy; Z87.39 Personal history of other diseases of the musculoskeletal system and connective tissue; Z86.69 Personal history of other diseases of the nervous system and sense organs
CPT/HCPCS: 80053; 80307; 81001; 84443; 85025; 93005; 96372; 96374; 99284; J1200; J1630; J2060

== ENCOUNTER 2018-01-24 20:55 | Emergency (ER) | payer OTHER ==
[~2018-01-24] VITALS: Ht 182.9 cm; Wt 90.0 kg
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
[2018-01-24 22:09] LABS: AST (GOT) 9 U/L (15-37); BICARBONATE 21.7 MEQ/L (21.0-32.0); BLOOD UREA NITROGEN 9 MG/DL (7-18); CALCIUM 9.7 MG/DL (8.5-10.1); CHLORIDE 110 MEQ/L (98-107); CREATININE 0.96 MG/DL (0.60-1.30); GLOMERULAR FILTRATION RATE 99 ML/MIN (>89); GLUCOSE,RANDOM 104 MG/DL (74-106); SODIUM (NA) 142 MEQ/L (136-145)
[2018-01-24 22:10] LABS: ALT (GPT) 29 U/L (12-78)
[2018-01-24 22:11] VITALS: BP 133/80; PULSE 77; RESP 16; TEMP 98.3; O2SAT 98
[2018-01-24 22:13] LABS: AUTOMATED NEUTROPHIL # 15.8 TH/MM3 (1.8-7.7); BASOPHIL # 0.1 TH/MM3 (0-0.2); BASOPHIL % 0.3 % (0.0-2.0); EOSINOPHIL # 0.1 TH/MM3 (0-0.4); EOSINOPHIL % 0.4 % (0.0-4.0); HEMATOCRIT 48.2 % (39.0-51.0); HEMOGLOBIN 16.2 GM/DL (13.0-17.0); LYMPHOCYTE # 2.3 TH/MM3 (1.0-4.8); MEAN CELL VOLUME 86.7 FL (80.0-100.0); MEAN CORPUSCULAR HEMOGLOBIN 29.2 PG (27.0-34.0); MEAN CORPUSCULAR HGB CONC 33.6 % (32.0-36.0); MEAN PLATELET VOLUME 8.6 FL (7.0-11.0); MONO % 5.4 % (0.0-8.0); NEUT % 81.9 % (16.0-70.0); PLATELET COUNT 322 TH/MM3 (150-450); RED BLOOD COUNT 5.56 MIL/MM3 (4.50-5.90); RED CELL DISTRIBUTION WIDTH 13.9 % (11.6-17.2); WHITE BLOOD COUNT 19.2 TH/MM3 (4.0-11.0)
[2018-01-24 22:20] LABS: ALKALINE PHOSPHATASE 149 U/L (45-117); TOTAL BILIRUBIN ADULT 0.2 MG/DL (0.2-1.0); TOTAL PROTEIN 7.9 GM/DL (6.4-8.2)
[2018-01-24 22:29] LABS: ACETAMINOPHEN LESS THAN 2.0 MCG/ML (10.0-30.0)
[2018-01-25 07:46] VITALS: BP 125/78; PULSE 97; RESP 16; TEMP 99.6; O2SAT 100
[2018-01-25] MEDS ORDERED: ONDANSETRON ODT 4 MG TAB PO ONE (08:15)
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
--- NOTE | 2018-01-25 08:39 | PD ---
Physical Exam Date Seen by Provider: Jan 25, 2018 Time Seen by Provider: 08:37 Narrative 22-year-old male previously medically cleared for psychiatric evaluation. Patient has been seen by the psychiatrist and deemed psychiatrically stable for discharge at this time. Patient remains medically stable for discharge. Patient follow-up will be based on the psychiatric note. Data Data Last Documented VS Vital Signs Date Time Temp Pulse Resp B/P (MAP) Pulse Ox O2 Delivery O2 Flow Rate FiO2 01/25/18 07:46 99.6 97 16 125/78 (94) 100 Room Air Orders Orders Complete Blood Count With Diff (01/24/18 21:24) Comprehensive Metabolic Panel (01/24/18 21:24) Thyroid Stimulating Hormone (01/24/18 21:24) Psych Screen (01/24/18 21:24) Drug Screen, Random Urine (01/24/18 21:24) Alcohol (Ethanol) (01/24/18 21:24) Salicylates (Aspirin) (01/24/18 21:24) Tylenol (Acetaminophen) (01/24/18 21:24) Diet Regular Basic (01/25/18 Breakfast) Ondansetron Odt (Zofran Odt) (01/25/18 08:15) Labs Laboratory Tests Test 01/24/18 21:34 White Blood Count 19.2 TH/MM3 Red Blood Count 5.56 MIL/MM3 Hemoglobin 16.2 GM/DL Hematocrit 48.2 % Mean Corpuscular Volume 86.7 FL Mean Corpuscular Hemoglobin 29.2 PG Mean Corpuscular Hemoglobin Concent 33.6 % Red Cell Distribution Width 13.9 % Platelet Count 322 TH/MM3 Mean Platelet Volume 8.6 FL Neutrophils (%) (Auto) 81.9 % Lymphocytes (%) (Auto) 12.0 % Monocytes (%) (Auto) 5.4 % Eosinophils (%) (Auto) 0.4 % Basophils (%) (Auto) 0.3 % Neutrophils # (Auto) 15.8 TH/MM3 Lymphocytes # (Auto) 2.3 TH/MM3 Monocytes # (Auto) 1.0 TH/MM3 Eosinophils # (Auto) 0.1 TH/MM3 Basophils # (Auto) 0.1 TH/MM3 CBC Comment DIFF FINAL Differential Comment Blood Urea Nitrogen 9 MG/DL Creatinine 0.96 MG/DL Random Glucose 104 MG/DL Total Protein 7.9 GM/DL Albumin 4.0 GM/DL Calcium Level 9.7 MG/DL Alkaline Phosphatase 149 U/L Aspartate Amino Transf (AST/SGOT) 9 U/L Alanine Aminotransferase (ALT/SGPT) 29 U/L Total Bilirubin 0.2 MG/DL Sodium Level 142 MEQ/L Potassium Level 4.5 MEQ/L Chloride Level 110 MEQ/L Carbon Dioxide Level 21.7 MEQ/L Anion Gap 10 MEQ/L Estimat Glomerular Filtration Rate 99 ML/MIN Thyroid Stimulating Hormone 3rd Gen 0.994 uIU/ML Salicylates Level LESS THAN 1.7 MG/DL Urine Opiates Screen NEG Acetaminophen Level LESS THAN 2.0 MCG/ML Urine Barbiturates Screen NEG Urine Amphetamines Screen NEG Urine Benzodiazepines Screen NEG Urine Cocaine Screen NEG Urine Cannabinoids Screen POS Ethyl Alcohol Level LESS THAN 3 MG/DL MDM Medical Record Reviewed: Yes Supervised Visit with YAHAIRA: Yes Differential Diagnosis 22-year-old male previously medically cleared for psychiatric evaluation. Patient has been seen by the psychiatrist and deemed psychiatrically stable for discharge at this time. Patient remains medically stable for discharge. Patient follow-up will be based on the psychiatric note. Diagnosis Primary Impression: Adjustment disorder with disturbance of conduct Patient Instructions: General Instructions Disposition: DISCHARGE HOME Condition: Stable Christiano Mustafa Jan 25, 2018 08:39
== END 2018-01-25 10:20 | disposition home or self-care (01) ==
LOC: NEDAMB 20:55 → NEPD 01-25 10:20
DX: F43.24 Adjustment disorder with disturbance of conduct (principal); F60.89 Other specific personality disorders; I10 Essential (primary) hypertension; F31.9 Bipolar disorder, unspecified; F41.8 Other specified anxiety disorders; Z72.0 Tobacco use; Z79.899 Other long term (current) drug therapy; Z86.59 Personal history of other mental and behavioral disorders; Z87.19 Personal history of other diseases of the digestive system; Z86.69 Personal history of other diseases of the nervous system and sense organs; Z87.39 Personal history of other diseases of the musculoskeletal system and connective tissue
CPT/HCPCS: 80053; 80307; 84443; 85025; 99284

== ENCOUNTER 2018-04-08 19:53 | Inpatient (IN) ==
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
[2018-04-08 21:12] LABS: Baso % (Auto) 0.2 % (0.0-2.0); Eos % (Auto) 0.2 % (0.0-4.0); Hematocrit 52.5 % (39.0-51.0); Hemoglobin 17.7 gm/dL (13.0-17.0); Lymph # (Auto) 2.4 th/mm3 (1.0-4.8); Lymph % (Auto) 13.1 % (9.0-44.0); Mean Corpuscular HGB Conc 33.6 % (32.0-36.0); Mean Corpuscular Hemoglobin 29.2 pg (27.0-34.0); Mean Corpuscular Volume 86.9 fL (80.0-100.0); Mean Platelet Volume 8.2 fL (7.0-11.0); Mono # (Auto) 0.9 th/mm3 (0.0-0.9); Mono % (Auto) 5.1 % (0.0-8.0); Neut # (Auto) 14.7 th/mm3 (1.8-7.7); Neut % (Auto) 81.4 % (16.0-70.0); Platelet Count 357 th/mm3 (150-450); Red Blood Count 6.05 mil/mm3 (4.50-5.90); Red Cell Distribution Width 13.3 % (11.6-17.2); White Blood Count 18.1 th/mm3 (4.0-11.0)
[2018-04-08 21:36] LABS: Albumin 4.7 g/dL (3.4-5.0); Anion Gap 16 meq/L (5-15); Aspartate Aminotransferase 18 U/L (15-37); Blood Urea Nitrogen 9 mg/dL (7-18); Calcium 9.6 mg/dL (8.5-10.1); Carbon Dioxide 18.9 meq/L (21.0-32.0); Chloride 108 meq/L (98-107); Glomerular Filtration Rate Greater Than 89 mL/min (>89); Glucose,Random 96 mg/dL (74-106); Potassium 3.7 meq/L (3.5-5.1); Sodium 143 meq/L (136-145)
[2018-04-08 21:39] LABS: Alcohol 166 mg/dL (0-5)
[2018-04-08 21:47] LABS: Alanine Aminotransferase 32 U/L (12-78); Alkaline Phosphatase 141 U/L (45-117); Total Protein 8.4 g/dL (6.4-8.2)
[2018-04-08 22:52] LABS: Amphetamine Screen,Urine Neg (Neg); Barbiturate Screen,Urine Neg (Neg); Cannabinoid Screen,Urine Pos (Neg); Cocaine Screen,Urine Neg (Neg)
[2018-04-08 23:03] LABS: Opiate Screen,Urine Neg (Neg)
[2018-04-09] MEDS ORDERED: Aluminum/Magnesium/Simethacone Susp 30 ML UDC PO PRN (09:18)
[2018-04-09] MEDS ORDERED: Acetaminophen 325 MG Tablet PO PRN (09:18)
[2018-04-09] MEDS ORDERED: Benztropine Inj 2 MG/2 ML Ampul IM PRN (09:18)
--- NOTE | 2018-04-09 09:18 | P.HPPSY ---
Provisional Diagnosis Admission Date: April 08, 2018 19:53 Vida I.: 1. Adjustment disorder with mixed disturbance of emotions and conduct 2. Polysubstance abuse Vida II.: 1. Mixed personality disorder Competence Certification of Person's Competence To Provide Express and Informed Consent I have personally examined Miguel Angel Salmon, a person being served at [facility] on, April 09, 2018 0917. Express and informed consent means consent voluntarily given in writing, by a competent person, after sufficient explanation and disclosure of the subject matter involved to enable the person to make a knowing and willful decision without any element of force, fraud, deceit, duress, or other form of constraint or coercion. This person is 18 years of age or older, is not now known to be incompetent to consent to treatment with a guardian advocate, and does not have a health care surrogate or proxy currently making medical treatment decisions. I have found this person to be one of the following: [] Competent to provide express and informed consent, as defined above, for voluntary admission to this facility and is competent to provide express and informed consent for treatment. He/she has the consistent capacity to make well reasoned, willful, and knowing decisions concerning his or her medical or mental health treatment. The person fully and consistently understands the purpose of the admission for examination/placement and is fully capable of personally exercising all rights assured under [place] [] Incompetent to provide express and informed consent to voluntary admission, and this is incompetent to provide express and informed consent to treatment. The person must be transferred to involuntary status and a petition for a guardian advocate filed with the Circuit Court. [x] Refusing to provide express and informed consent to voluntary admission but is competent to provide express and informed consent for treatment. The person must be discharged or transferred to involuntary status. Form shall be completed within 24 hours of a person's arrival at the receiving facility and filed in the clinical record of each person: 1. Admitted on a voluntary basis 2. Permitted to provide express and informed consent to his/her own treatment 3. Allowed to transfer from involuntary to voluntary status 4. Prior to permitting a person to consent to his or her own treatment after having been previously found incompetent to consent to treatment. History of Present Illness Capacity: Has capacity (To consent for medication/treatment) Chief Complaint: Brandt act History of Present Illness: Mr. Salmon is a 22-year-old male with a chart history of personality disorder and adjustment disorder who presents under a Brandt act by law enforcement alleging that the patient was laying in the road. Medication nonadherence is also alleged. Reviewing the electronic medical record, I note that I have seen the patient previously in consultation and the patient was recently admitted to the inpatient psychiatric unit here under Dr. Norman. Patient seen and examined. Chart reviewed. Case discussed with nursing staff. On my examination today, the patient admits to laying in the roadway. He denies that this behavior was suicidal in nature but cannot provide a coherent explanation for why he was doing so. Patient provides several different explanations for this behavior, including: "I was trying to finish my drink before going in the house." "It was hot I decided to lay down there." and "I was about to throw up." He denies any suicidal or homicidal ideation presently , although it is unclear that he is reliable to contract for safety. He denies any audiovisual hallucinations. I can elicit no delusional material. He denies any issues with mood but becomes increasingly irritable and argumentative when challenged. He insists that I discharged him from the emergency room today and tells me "I just have to behave." Remainder of the psychiatric ROS is negative. No acute physical complaints. Past psychiatric history: Patient has previous diagnoses as noted above. He follows at [facility]. I have discussed the matter with [facility] liaison Christiano who has provided me with outpatient medication list namely Inderal 10 mg 3 times daily, Tegretol 200 mg twice daily, Atarax 50 mg at bedtime and Zoloft 50 mg daily. I have also discussed the case with patient's outpatient upper caser Glynn Caba who advocates for outpatient commitment for this patient. Most recent psychiatric admission was reportedly here at [place]. The patient reports 1 previous suicide attempt at age 18 by attempted suffocation. Family history: The patient alleges that his grandmother has some sort of mental illness. Chemical dependency history: The patient insists that he has only been drinking heavily in the last 2 days and prior to that his last drink was 4 weeks ago. His urine toxicology is also positive for cannabinoids. Social history: The patient is living with his grandmother. He has a grade 10 education. He is on disability. He is single with no children. He does note that his grandmother keeps a BB gun, but he denies ever having had a suicide plan involving a gun. - Inpatient Certification I certify that the inpatient services were ordered in accordance with Medicare regulations governing the order. This includes certification that hospital inpatient services are reasonable and necessary and in the case of services not specified as inpatient-only under 42 CFR 419.22(n), that they are appropriately provided as inpatient services in accordance to with the 2-midnight benchmark under 43 CFR 412.3(e) I certify that inpatient psychiatric hospital services are medically necessary. Evaluation and treatment and/or diagnostic testing are expected to improve the patient's condition. The patient needs on a daily basis, active treatment furnished directly by or requiring the supervision of inpatient psychiatric facility personnel. Estimated Total Length of Stay (Days): 5 Plans for Post Hospital Care: Not yet determined Review of Systems All other systems reviewed negative except as stated in HPI PMFSH - History History Provided By: Patient - Tobacco History Second Hand Smoke Exposure: No Tobacco Use In Past 30 Days: Yes Smoking Status: Former smoker Tobacco Type: Cigarettes - Alcohol History How Often Do You Have a Drink Containing Alcohol: 4 or more times a week - Substance Use History Substance History: Active Abuse - Substance Use Type Marijuana Status: Active Route Used: By Mouth Frequency: DAILY Reason for Use: Calm Down, Get High Comment: MEDICINAL - Travel History Recent Travel in the [place] Within the Last 8 Weeks: No Recent Travel Out of the Country Within the Last 8 Weeks: No - Immunization History Tetanus Immunization: Unsure Hx Influenza Vaccine This Season: No Quality Measures - Patient Strengths Patient's strengths (minimum of 2): In a monitored setting. Verbally fluent. Medications and Allergies Allergies Allergy/AdvReac Type Severity Reaction Status Date / Time Penicillins Allergy Severe Rash Verified 04/08/18 20:49 Home Medications Medication Instructions Recorded Confirmed Type hydroxyzine HCl 50 mg PO QID PRN 04/08/18 04/08/18 History Results - Labs CBC & Chem 7: 04/08/18 20:30 04/08/18 20:30 Labs: Laboratory Results - last 24 hr 04/08/18 04/08/18 04/08/18 20:27 20:30 20:30 WBC 18.1 H RBC 6.05 H Hgb 17.7 H Hct 52.5 H MCV 86.9 MCH 29.2 MCHC 33.6 RDW 13.3 Plt Count 357 MPV 8.2 Neut % (Auto) 81.4 H Lymph % (Auto) 13.1 [place] % (Auto) 5.1 Eos % (Auto) 0.2 Baso % (Auto) 0.2 Neut # (Auto) 14.7 H Lymph # (Auto) 2.4 [place] # (Auto) 0.9 Eos # (Auto) 0.0 Baso # (Auto) 0.0 WBC Differential . Differential Comment Auto diff final Sodium 143 Potassium 3.7 Chloride 108 H Carbon Dioxide 18.9 L Anion Gap 16 H BUN 9 Creatinine 0.86 Estimated GFR Greater than 89 Random Glucose 96 Calcium 9.6 Total Bilirubin 0.4 AST 18 ALT 32 Alkaline Phosphatase 141 H Total Protein 8.4 H Albumin 4.7 TSH 1.330 Urine Opiates Screen Neg Ur Barbiturates Screen Neg Ur Amphetamines Screen Neg U Benzodiazepines Scrn Neg Urine Cocaine Screen Neg U Cannabinoids Screen Pos Serum Alcohol 166 H Labs reviewed. Toxicological and alcohol level findings noted. Patient has a leukocytosis without signs or symptoms of infection. Exam Vital signs: Vital Signs 04/08/18 20:20 04/08/18 21:23 04/09/18 02:37 Temperature 98.6 F 98.1 F Pulse Rate 112 H 78 99 H Respiratory Rate 12 16 16 Blood Pressure 137/82 137/67 139/69 Pulse Oximetry 98 100 100 04/09/18 06:25 Temperature 98 F Pulse Rate 81 Respiratory Rate 14 Blood Pressure 117/70 Pulse Oximetry 100 Intake & Output 04/08/18 04/09/18 04/09/18 18:59 06:59 18:59 Weight 68.039 kg Narrative: Physical examination completed by ED provider. On my examination today, the patient appears to be in no acute physical distress. No motor abnormalities noted. No signs of intoxication or withdrawal noted. Labs and vital signs reviewed: Mental Status Examination Appearance: Appropriate Orientation: x4 Motor Activity: Normal gait Speech: Unremarkable Language: Adequate Fund of Knowledge: Inadequate Attention and Concentration: Adequate Memory: Unremarkable (Grossly intact on clinical exam. Possibly some degree of confabulation) Mood: Angry, Irritable Affect: Other (Restricted) Thought Process & Associations: Intact Thought Content: Appropriate Hallucination Type: None Delusion Type: None Suicidal Ideation: No (Unclear whether patient is reliable to contract for safety) Suicidal Plan: No Suicidal Intention: No Homicidal Ideation: No Homicidal Plan: No Homicidal Intention: No Insight: Poor Judgment: Poor Assessment and Plan - Assessment (1) Adjustment disorder with mixed disturbance of emotions and conduct Code(s): F43.25 - Adjustment disorder with mixed disturbance of emotions and conduct Status: Acute (2) Polysubstance abuse Code(s): F19.10 - Other psychoactive substance abuse, uncomplicated Status: Acute - Plan Plan: 22-year-old male with psychiatric history as detailed above who presents under a Brandt act by law enforcement. On my examination today, the patient admits to laying in the roadway and can provide no consistent or comprehensible explanation for this behavior. Although it is possible that this behavior was entirely related to intoxication or to personality factors, it is most prudent at this juncture in my judgment to admit the patient to observe for any ongoing impairments in safety. Admit inpatient. Patient declining to consent for voluntary admission. Involuntary status. I have completed first opinion. Consult for second opinion. Patient retains capacity to consent for medications. I will resume the patient's prior to admission medication regimen except that I will make his hydroxyzine as needed. CIWA scale with Ativan for the management of any withdrawal. Check Tegretol level. Check a CBC to follow up leukocytosis. Vitals every shift. Counselor to see. Disposition planning. Estimated length of stay: 3-5 days. Justification for Continued Inpatient Stay: Monitoring for impairment in safety Discharge Planning: Pending outcome of observation
[2018-04-09] MEDS ORDERED: Haloperidol Inj 5 MG/ML Ampul IV.PUSH PRN (09:20)
--- NOTE | 2018-04-09 13:11 | P.PNPSY ---
Subjective Remarks: The patient is a 22-year-old man, well-known by the service, PPHx of who bipolar disorder, PTSD, personality disorder, poor impulse control, alcohol and cannabis use disorder, multiple psychiatric admission also ER visits under Brandt act, who presents to the emergency department via police as a Brandt act. Apparently the patient was lying in roadway rambling incoherently and stated to the community relations police lieutenant that it was his freedom and he wanted to be a pixie. The patient does admit to drinking wine earlier today approximately 1-1/2 bottles. Bernabe DEL RIO, BAL 166, consulted to me for second opinion. On evaluation he is irritable, kind of intrusive requesting to be discharge. Initially trying to deny the facts that brought him to the hospital, but once confronted tried to minimize his action. He is quite talkative, at times even pressure, he is oddly related with a bizarre inappropriate/affect. He denies SI/HI/VH/AH. He does confirms no being taking medications and drinking also alcohol and using marihuana almost every day. Mental Status Examination Appearance: Appropriate Consciousness: Alert Orientation: x4 Motor Activity: Normal gait Speech: Unremarkable Language: Adequate Fund of Knowledge: Adequate Memory: Unremarkable Mood: Appropriate Affect: Irritable, Labile Thought Process & Associations: Goal directed Thought Content: Bizarre thinking, Preoccupations Hallucination Type: None Suicidal Plan: No Suicidal Intention: No Homicidal Ideation: No Homicidal Plan: No Homicidal Intention: No Insight: Poor Judgment: Poor Assessment and Plan - Plan Plan: Estimated LOS: [] days I have seen and examined this patient, reviewed the documentation and I agree and concur with Dr. Timmons assessment and plan. Justification for Continued Inpatient Stay: Patient is for psychiatric admission
[2018-04-09] MEDS: carBAMazepine 200 MG Tablet PO SCH (22:14)
[2018-04-10] MEDS ORDERED: Sertraline 50 MG Tablet PO SCH (09:00)
[2018-04-10] MEDS: Propranolol 10 MG Tablet PO SCH ×3 (10:01→17:27)
[2018-04-10] MEDS: carBAMazepine 200 MG Tablet PO SCH ×2 (10:01→21:16)
[2018-04-10] MEDS: Sertraline 50 MG Tablet PO SCH (10:01)
[2018-04-10 11:27] LABS: Baso % (Auto) 0.2 % (0.0-2.0); Eos # (Auto) 0.1 th/mm3 (0.0-0.4); Eos % (Auto) 0.6 % (0.0-4.0); Hematocrit 48.8 % (39.0-51.0); Hemoglobin 16.7 gm/dL (13.0-17.0); Lymph # (Auto) 2.1 th/mm3 (1.0-4.8); Mean Corpuscular HGB Conc 34.2 % (32.0-36.0); Mean Corpuscular Hemoglobin 29.7 pg (27.0-34.0); Mean Corpuscular Volume 86.8 fL (80.0-100.0); Mono # (Auto) 1.1 th/mm3 (0.0-0.9); Mono % (Auto) 6.9 % (0.0-8.0); Neut # (Auto) 12.8 th/mm3 (1.8-7.7); Neut % (Auto) 79.3 % (16.0-70.0); Red Blood Count 5.62 mil/mm3 (4.50-5.90); Red Cell Distribution Width 13.4 % (11.6-17.2); White Blood Count 16.1 th/mm3 (4.0-11.0)
[2018-04-10 11:41] LABS: Mean Platelet Volume 8.8 fL (7.0-11.0); Platelet Count 321 th/mm3 (150-450)
--- NOTE | 2018-04-10 11:49 | P.PNPSY ---
Subjective Chief Complaint: Brandt act Remarks: Patient seen and examined with counselor and nurse. Chart reviewed. CBZ level therapeutic, indicating compliance prior to admission with this medication at least. CIWA max in last 24 hours was 4. Case discussed with nursing staff. Patient was reportedly vituperative with his grandmother on the telephone last night but otherwise presented no behavioral problem. Case discussed in treatment team. On my exam today, patient is calm and cooperative with exam. He denies any SI/HI or AVH. He does report some mild formication. No delusions noted. We discuss Glynn's recommendation for outpatient commitment, but patient is opposed to this noting "I like being a free man." He also rebuffs counselor's offer of help with placement or chem dep treatment. No side effects from medications. No physical complaints. Vital Signs Temp Pulse Resp BP Pulse Ox 04/10/18 05:54 97.4 F L 90 18 133/72 98 Laboratory Results - last 12 hr 04/10/18 04/10/18 10:55 10:55 WBC 16.1 H RBC 5.62 Hgb 16.7 Hct 48.8 MCV 86.8 MCH 29.7 MCHC 34.2 RDW 13.4 Plt Count 321 MPV 8.8 Prelim Diff (Auto) Slide review pending Neut % (Auto) 79.3 H Lymph % (Auto) 13.0 [place] % (Auto) 6.9 Eos % (Auto) 0.6 Baso % (Auto) 0.2 Neut # (Auto) 12.8 H Lymph # (Auto) 2.1 [place] # (Auto) 1.1 H Eos # (Auto) 0.1 Baso # (Auto) 0.0 WBC Differential . Diff Scan Auto diff confirmed Differential Comment . Toxic Vacuolation Present H Platelet Estimate Normal Platelet Morphology Normal Sodium 140 Potassium 4.7 D Chloride 109 H Carbon Dioxide 21.2 Anion Gap 10 BUN 15 Creatinine 0.82 Estimated GFR Greater than 89 Random Glucose 90 Calcium 9.5 Total Bilirubin 0.6 AST 26 ALT 30 Alkaline Phosphatase 127 H Total Protein 7.9 Albumin 4.2 Triglycerides 116 Cholesterol 146 LDL Cholesterol, Calc 66 HDL Cholesterol 56.9 Cholesterol/HDL Ratio 2.56 Leukocytosis decreased. No s/sxs infection. This value is within historical range of ~12-~19. Review of Systems All other systems reviewed negative except as stated in HPI Mental Status Examination Appearance: Appropriate Consciousness: Alert Orientation: x4 Motor Activity: Normal gait, Other (No motor abnormalities noted) Speech: Unremarkable Language: Adequate Fund of Knowledge: Inadequate Attention and Concentration: Adequate Memory: Unremarkable (Grossly intact on clinical exam) Mood: Appropriate Affect: Appropriate Thought Process & Associations: Intact Thought Content: Appropriate Hallucination Type: None (Denies AVH), Tactile (Mild) Delusion Type: None Suicidal Ideation: No Suicidal Plan: No Suicidal Intention: No Homicidal Ideation: No Homicidal Plan: No Homicidal Intention: No Insight: Poor Judgment: Poor Mental Status Exam Remarks: Mild resting hand tremor. No tongue fasciculations, no mydriasis, no diaphoresis. No other signs of withdrawal noted Assessment and Plan - Assessment (1) Adjustment disorder with mixed disturbance of emotions and conduct Code(s): F43.25 - Adjustment disorder with mixed disturbance of emotions and conduct Status: Acute (2) Polysubstance abuse Code(s): F19.10 - Other psychoactive substance abuse, uncomplicated Status: Acute - Plan Plan: Continue current psychotropics as ordered. Continue to monitor on the inpatient unit. Discharge planning. Continue other medications and care as ordered. Justification for Continued Inpatient Stay: Monitoring for impairment in safety Discharge Planning: Counselor to reach out to patient's grandmother. Pending outcome of observation. Request Healthcare Surrogate/Guardian Advocate?: No
[2018-04-10 11:50] LABS: Alanine Aminotransferase 30 U/L (12-78); Albumin 4.2 g/dL (3.4-5.0); Alkaline Phosphatase 127 U/L (45-117); Anion Gap 10 meq/L (5-15); Aspartate Aminotransferase 26 U/L (15-37); Blood Urea Nitrogen 15 mg/dL (7-18); Calcium 9.5 mg/dL (8.5-10.1); Carbon Dioxide 21.2 meq/L (21.0-32.0); Chloride 109 meq/L (98-107); Chol/HDL Ratio 2.56 Ratio; Cholesterol 146 mg/dL (120-200); Glomerular Filtration Rate Greater Than 89 mL/min (>89); Glucose,Random 90 mg/dL (74-106); HDL Cholesterol 56.9 mg/dL (40.0-60.0); LDL Cholesterol,Calculated 66 mg/dL (0-99); Sodium 140 meq/L (136-145); Total Protein 7.9 g/dL (6.4-8.2); Triglycerides 116 mg/dL (42-150)
[2018-04-10 12:02] LABS: Potassium 4.7 meq/L (3.5-5.1)
[2018-04-10 12:36] LABS: Platelet Estimate Normal (Normal); Platelet Morphology Normal (Normal); Toxic Vacuolation Present
[2018-04-10 15:56] LABS: Hemoglobin A1c 4.7 % (4.3-6.0)
[2018-04-11] MEDS: Propranolol 10 MG Tablet PO SCH ×3 (09:22→19:02)
[2018-04-11] MEDS: Sertraline 50 MG Tablet PO SCH (09:23)
[2018-04-11] MEDS: carBAMazepine 200 MG Tablet PO SCH ×2 (09:23→20:32)
--- NOTE | 2018-04-11 14:37 | P.PNPSY ---
Subjective Chief Complaint: Brandt act Remarks: Patient seen and examined with nurse. Chart reviewed. I note that patient's grandmother has additionally completed an ex parte, which I have reviewed. Case discussed with nursing staff. On my exam, patient presents as somewhat childlike. He acknowledges difficulties in relating with his grandmother but vacillates between desiring to live with her and live apart from her in some sort of structured living. He denies SI/HI. Denies AVH. No reported side effects from medications. No physical complaints. Discussed case further with outpatient AIDEN Caba. I did observe to Mr. Caba that patient's CBZ level at admission was therapeutic, but Mr. Caba notes that patient is non- adherent with meds outpatient because he will overuse his prescription medications at the beginning of a month and then run out midway through and not obtain refills. Mr. Caba renews his request that we pursue outpatient commitment. Vital Signs Temp Pulse Resp BP Pulse Ox 04/11/18 05:38 97.4 F L 72 17 108/55 L 99 04/10/18 16:53 80 18 163/113 H 97 Laboratory Results - last 24 hr 04/10/18 10:55 Hemoglobin A1c 4.7 Labs reviewed. Review of Systems All other systems reviewed negative except as stated in HPI (Limitation: Poor historian) Mental Status Examination Appearance: Appropriate Consciousness: Alert Orientation: x4 Motor Activity: Normal gait, Other (No abnormal motor movements noted) Speech: Unremarkable Language: Adequate Fund of Knowledge: Inadequate Attention and Concentration: Adequate Memory: Unremarkable (Grossly intact on clinical exam) Mood: Appropriate Affect: Appropriate Thought Process & Associations: Intact Thought Content: Appropriate Hallucination Type: None Delusion Type: None Suicidal Ideation: No Suicidal Plan: No Suicidal Intention: No Homicidal Ideation: No Homicidal Plan: No Homicidal Intention: No Insight: Poor Judgment: Poor Assessment and Plan - Assessment (1) Adjustment disorder with mixed disturbance of emotions and conduct Code(s): F43.25 - Adjustment disorder with mixed disturbance of emotions and conduct Status: Acute (2) Polysubstance abuse Code(s): F19.10 - Other psychoactive substance abuse, uncomplicated Status: Acute - Plan Plan: With the benefit of further observation, I am inclined to agree with Mr. Caba that patient would benefit from additional oversight of outpatient commitment program. I suspect his chronically poor insight and judgement make it difficult for patient to function in the community at present, and these difficulties might be mitigated somewhat by outpatient commitment. I have completed petition for involuntary outpatient commitment and have consulted for a second opinion. I will continue current psychotropics as ordered. Continue to monitor on inpatient unit. Continue other medications and care as ordered. Justification for Continued Inpatient Stay: Risk for decompensation in less restrictive environment Discharge Planning: Patient more open to placement presently. I have instructed the counselor to discuss placement options with the patient. It seems that patient's relationship with grandmother is chronically fractious, and it might be best if patient could reside in a structured environment outside of grandmother's home. Brandt act court tomorrow. Request Healthcare Surrogate/Guardian Advocate?: No
[2018-04-12] MEDS: carBAMazepine 200 MG Tablet PO SCH ×2 (09:00→20:46)
[2018-04-12] MEDS: Sertraline 50 MG Tablet PO SCH (09:00)
--- NOTE | 2018-04-12 09:48 | P.PNPSY ---
Subjective Chief Complaint: Brandt act Remarks: Patient seen and case discussed with nursing staff. Chart reviewed. Patient noted to be somewhat manipulative by nursing staff. For me today, patient is calm. Affect is a little bit dysphoric. No psychotic symptoms in evidence. No evident side effects from medications. No physical distress noted. Vital Signs Temp Pulse Resp BP Pulse Ox 04/12/18 05:54 97.9 F 86 17 130/68 98 04/11/18 15:50 98.4 F 94 H 18 144/93 H 99 Intake and Output 04/11/18 04/12/18 04/12/18 22:59 06:59 14:59 Other: Weight 91.9 kg Labs reviewed. No new labs. Review of Systems other (Limited ROS today) Mental Status Examination Appearance: Appropriate Consciousness: Alert Orientation: Person, Place (At least) Motor Activity: Other (No motor abnormalities noted) Speech: Unremarkable Language: Adequate Fund of Knowledge: Inadequate Attention and Concentration: Adequate Mood: Other (calm) Affect: Other (mildly dysphoric) Thought Process & Associations: Intact Thought Content: Appropriate Hallucination Type: None Delusion Type: None Suicidal Ideation: No (No SI voiced) Homicidal Ideation: No (No HI voiced) Insight: Poor Judgment: Poor Assessment and Plan - Assessment (1) Adjustment disorder with mixed disturbance of emotions and conduct Code(s): F43.25 - Adjustment disorder with mixed disturbance of emotions and conduct Status: Acute (2) Polysubstance abuse Code(s): F19.10 - Other psychoactive substance abuse, uncomplicated Status: Acute - Plan Plan: Continue current psychotropics as ordered. Plan to obtain a carbamazepine level in the morning as it is unclear if level at presentation is accurate or reflective of genuine carbamazepine level on current dose of this medication since as per outpatient home care giver Mr. Caba patient was misusing this medication. Continue to monitor on the inpatient unit. Continue other care as ordered. Patient's case was presented to the Brandt act court, and the patient was retained on the unit by the project coordinator. Justification for Continued Inpatient Stay: Risk for decompensation in less restrictive environment Discharge Planning: Possible outpatient commitment Request Healthcare Surrogate/Guardian Advocate?: No
[2018-04-12] MEDS: Propranolol 10 MG Tablet PO SCH ×3 (09:59→18:14)
[2018-04-13] MEDS: carBAMazepine 200 MG Tablet PO SCH ×2 (09:23→20:08)
[2018-04-13] MEDS: Propranolol 10 MG Tablet PO SCH ×3 (09:23→17:46)
[2018-04-13] MEDS: Sertraline 50 MG Tablet PO SCH (09:23)
[2018-04-13] MEDS: LORazepam 1 MG Tablet PO PRN ×2 (10:22→18:34)
[2018-04-13] MEDS ORDERED: carBAMazepine 200 MG Tablet PO ONE (10:49)
--- NOTE | 2018-04-13 10:49 | P.PNPSY ---
Subjective Chief Complaint: Brandt act Remarks: Patient seen and examined with counselor and nurse. Chart reviewed. Case discussed with nursing staff. Patient reportedly seeing bugs in his room. Case discussed in treatment team. On my exam, patient is petulant and argumentative. Resistant to speaking today, asking defiantly "you didn't learn enough in court?" He does complain of irritability and says of his medications "everything needs to be a little stronger." Does not describe any AVH now. Insists that he did see a bug in his room. Following the interview, patient instigating peers on the unit, placed in short villalta for a time out. No side effects from medications. No physical complaints. Vital Signs Temp Pulse Resp BP Pulse Ox 04/13/18 06:23 98.0 F 90 18 132/62 98 04/12/18 17:56 98.4 F 96 H 17 151/84 H 96 Laboratory Results - last 24 hr 04/13/18 07:25 Carbamazepine 6.1 CBZ level at lower end of therapeutic range. Review of Systems All other systems reviewed negative except as stated in HPI (Limitation: Uncooperative) Mental Status Examination Appearance: Appropriate Consciousness: Alert Orientation: Person, Place (At least) Motor Activity: Other (No abnormal motor movements noted) Speech: Unremarkable Language: Adequate Fund of Knowledge: Inadequate Attention and Concentration: Adequate Memory: Unremarkable (Grossly intact on clinical exam) Mood: Oppositional, Irritable Affect: Irritable, Other (Petulant, dysphoric) Thought Process & Associations: Intact Thought Content: Appropriate Hallucination Type: None Delusion Type: None Suicidal Ideation: No Homicidal Ideation: No Insight: Poor Judgment: Poor Assessment and Plan - Assessment (1) Adjustment disorder with mixed disturbance of emotions and conduct Code(s): F43.25 - Adjustment disorder with mixed disturbance of emotions and conduct Status: Acute (2) Polysubstance abuse Code(s): F19.10 - Other psychoactive substance abuse, uncomplicated Status: Acute - Plan Plan: Titrate CBZ to 300mg BID for mood stabilization and to manage irritability/ impulsivity. Check follow up CBZ level Monday morning. Continue to monitor on the high acuity unit. Continue other medications and care as ordered. Justification for Continued Inpatient Stay: Medication changes. Discharge Planning: Possible discharge after the weekend. Petition for involuntary outpatient treatment has been completed and will be filed with the court to get it on the docket for next . Request Healthcare Surrogate/Guardian Advocate?: No
[2018-04-14] MEDS: Sertraline 50 MG Tablet PO SCH (09:18)
[2018-04-14] MEDS: Propranolol 10 MG Tablet PO SCH ×3 (09:18→20:23)
[2018-04-14] MEDS: carBAMazepine 200 MG Tablet PO SCH ×2 (12:20→20:19)
--- NOTE | 2018-04-14 14:13 | P.PNPSY ---
Subjective Chief Complaint: Brandt act Remarks: Patient was seen and case discussed with nursing. Patient is behaving well today. He is minimally engaged during the interview. He has not been rude during the interview and per nursing is compliant with medications. Largely seclusive to his room. No outbursts. Mental Status Examination Appearance: Appropriate Consciousness: Alert Orientation: Person, Place (At least) Motor Activity: Other (No abnormal motor movements noted) Speech: Unremarkable Language: Adequate Fund of Knowledge: Inadequate Attention and Concentration: Adequate Memory: Unremarkable (Grossly intact on clinical exam) Mood: Oppositional, Irritable Affect: Irritable, Other (Petulant, dysphoric) Thought Process & Associations: Intact Thought Content: Appropriate Hallucination Type: Visual (Seeing bugs) Delusion Type: None Suicidal Ideation: No Suicidal Plan: No Suicidal Intention: No Homicidal Ideation: No Homicidal Plan: No Homicidal Intention: No Insight: Poor Judgment: Poor Assessment and Plan - Assessment (1) Adjustment disorder with mixed disturbance of emotions and conduct Code(s): F43.25 - Adjustment disorder with mixed disturbance of emotions and conduct Status: Acute (2) Polysubstance abuse Code(s): F19.10 - Other psychoactive substance abuse, uncomplicated Status: Acute - Plan Plan: Continue current treatment plan Justification for Continued Inpatient Stay: Patient would decompensate in a less restrictive setting Request Healthcare Surrogate/Guardian Advocate?: No
[2018-04-14] MEDS: LORazepam 1 MG Tablet PO PRN (19:54)
[2018-04-15] MEDS: Sertraline 50 MG Tablet PO SCH (08:35)
[2018-04-15] MEDS: carBAMazepine 200 MG Tablet PO SCH ×2 (08:35→20:35)
[2018-04-15] MEDS: Propranolol 10 MG Tablet PO SCH ×3 (09:10→18:20)
--- NOTE | 2018-04-15 15:42 | P.PNPSY ---
Subjective Chief Complaint: Brandt act Remarks: Patient was seen and case discussed with nursing. Patient continues to improve. He is less manipulative and behaving well on the unit. There is no labile mood or oppositional behavior. No outbursts. He is compliant with his medications Mental Status Examination Appearance: Appropriate Consciousness: Alert Orientation: Person, Place (At least) Motor Activity: Other (No abnormal motor movements noted) Speech: Unremarkable Language: Adequate Fund of Knowledge: Inadequate Attention and Concentration: Adequate Memory: Unremarkable (Grossly intact on clinical exam) Mood: Appropriate Affect: Appropriate Thought Process & Associations: Intact Thought Content: Appropriate Hallucination Type: Visual (Seeing bugs) Delusion Type: None Suicidal Ideation: No Suicidal Plan: No Suicidal Intention: No Homicidal Ideation: No Homicidal Plan: No Homicidal Intention: No Insight: Poor Judgment: Poor Assessment and Plan - Assessment (1) Adjustment disorder with mixed disturbance of emotions and conduct Code(s): F43.25 - Adjustment disorder with mixed disturbance of emotions and conduct Status: Acute (2) Polysubstance abuse Code(s): F19.10 - Other psychoactive substance abuse, uncomplicated Status: Acute - Plan Plan: Continue current treatment plan Justification for Continued Inpatient Stay: Patient would decompensate in a less restrictive setting Request Healthcare Surrogate/Guardian Advocate?: No
[2018-04-16] MEDS: carBAMazepine 200 MG Tablet PO SCH (08:06)
[2018-04-16] MEDS: Propranolol 10 MG Tablet PO SCH ×2 (08:06→12:53)
[2018-04-16] MEDS: Sertraline 50 MG Tablet PO SCH (08:08)
--- NOTE | 2018-04-16 10:41 | P.DSPSY ---
Psychiatry Discharge Summary Inpatient Psychiatric care?: Yes Advance Directives: No Mental Health Advance Directive: No Health Care Proxy: No - Admission Admission Date: April 09, 2018 10:06 - Admission Diagnosis (1) Adjustment disorder with mixed disturbance of emotions and conduct Code(s): F43.25 - Adjustment disorder with mixed disturbance of emotions and conduct (2) Polysubstance abuse Code(s): F19.10 - Other psychoactive substance abuse, uncomplicated Brief History: Mr. Salmon is a 22-year-old male with a chart history of personality disorder and adjustment disorder who presents under a Brandt act by law enforcement alleging that the patient was laying in the road. Medication nonadherence is also alleged. Reviewing the electronic medical record, I note that I have seen the patient previously in consultation and the patient was recently admitted to the inpatient psychiatric unit here under Dr. Norman. Patient seen and examined. Chart reviewed. Case discussed with nursing staff. On my examination today, the patient admits to laying in the roadway. He denies that this behavior was suicidal in nature but cannot provide a coherent explanation for why he was doing so. Patient provides several different explanations for this behavior, including: "I was trying to finish my drink before going in the house." "It was hot I decided to lay down there." and "I was about to throw up." He denies any suicidal or homicidal ideation presently , although it is unclear that he is reliable to contract for safety. He denies any audiovisual hallucinations. I can elicit no delusional material. He denies any issues with mood but becomes increasingly irritable and argumentative when challenged. He insists that I discharged him from the emergency room today and tells me "I just have to behave." Remainder of the psychiatric ROS is negative. No acute physical complaints. Past psychiatric history: Patient has previous diagnoses as noted above. He follows at [facility]. I have discussed the matter with [facility] liaison Christiano who has provided me with outpatient medication list namely Inderal 10 mg 3 times daily, Tegretol 200 mg twice daily, Atarax 50 mg at bedtime and Zoloft 50 mg daily. I have also discussed the case with patient's outpatient counter caser Glynn Caba who advocates for outpatient commitment for this patient. Most recent psychiatric admission was reportedly here at [facility]. The patient reports 1 previous suicide attempt at age 18 by attempted suffocation. Family history: The patient alleges that his grandmother has some sort of mental illness. Chemical dependency history: The patient insists that he has only been drinking heavily in the last 2 days and prior to that his last drink was 4 weeks ago. His urine toxicology is also positive for cannabinoids. Social history: The patient is living with his grandmother. He has a grade 10 education. He is on disability. He is single with no children. He does note that his grandmother keeps a BB gun, but he denies ever having had a suicide plan involving a gun. Tobacco Use In Past 30 Days: Yes How Often Do You Have a Drink Containing Alcohol: 4 or more times a week Hospital Course: Patient was admitted to a locked, inpatient psychiatric unit. Appropriate precautions were in place throughout patient's hospital stay. Patient was seen and examined on the unit by psychiatry and also visited by counselor. Psychotropic medications were adjusted. There was no evidence of any suicidality or homicidality patient unit. There was no evidence of self-care deficit. The patient did act out and tantrum at times, and this is felt to be secondary to his mixed personality disorder. Collateral information was obtained from the patient's outpatient care specialist and also from patient's grandmother. A petition for involuntary outpatient commitment has been completed and filed with the court, and a hearing on this matter is tentatively scheduled for April 19. On the day of discharge: Patient seen and examined with nurse. Chart reviewed. Case discussed with nursing staff. Patient noted to be somewhat disrespectful to staff this morning, but otherwise he has posed no real behavioral problem. He has not been physically aggressive. Case discussed with counselor. On my examination today, the patient is requesting discharge from the inpatient psychiatric unit today. He denies any suicidal or homicidal ideation, intent or plan and contracts for safety. I can elicit no depressive or hypomanic/manic symptoms, and the patient notes "I am not depressed anymore." He denies any audiovisual hallucinations. I can elicit no delusional material. Mixed personality disorder traits persist, chiefly antisocial. We discuss strategies for managing his chronically fractious relationship with his grandmother. He denies side effects from medications. I have ordered a carbamazepine level on discharge and have educated the patient regarding the need to have this level drawn on an outpatient basis. No physical complaints. Patient is felt to be at his chronic psychiatric baseline. Suicide and violence risk assessment on day of discharge both suggest lower imminent risk from mental illness as defined under the Brandt act. Although patient's personality disorder does confer chronic, but not acute or imminent, risk, this risk would not be ameliorated by a longer inpatient psychiatric hospital stay. Patient has maximized benefit from this inpatient psychiatric hospital stay and will be discharged today with psychiatric follow-up as arranged by counselor. Patient is also to follow up with primary care. I have counseled the patient to abstain from substances of abuse. I have counseled the patient regarding warning signs for need to return to the psychiatric emergency room as part of a general safety plan. I have reminded the patient of the need to present this for involuntary outpatient commitment hearing. - Discharge Discharge Date: 04/16/18 - Discharge Diagnosis (1) Adjustment disorder with mixed disturbance of emotions and conduct Diagnosis: Principal (resolved) Code(s): F43.25 - Adjustment disorder with mixed disturbance of emotions and conduct Status: Acute (2) Mixed personality disorder Diagnosis: Secondary Code(s): F60.89 - Other specific personality disorders Status: Chronic (3) Polysubstance abuse Diagnosis: Secondary Code(s): F19.10 - Other psychoactive substance abuse, uncomplicated Status: Chronic Discharge Disposition: Home - Discharge Instructions Discharge Diet: Regular Diet Activities You Can Perform: Weight Bearing As Tolerat - Discharge Time <= 30 minutes Mental Status Examination Appearance: Appropriate Consciousness: Alert Orientation: Person, Place (At least) Motor Activity: Other (No motor abnormalities noted.) Speech: Unremarkable Language: Adequate Fund of Knowledge: Inadequate Attention and Concentration: Adequate Memory: Unremarkable (Remains grossly intact on clinical exam) Mood: Appropriate Affect: Appropriate Thought Process & Associations: Intact Thought Content: Appropriate Hallucination Type: None Delusion Type: None Suicidal Ideation: No Suicidal Plan: No Suicidal Intention: No Homicidal Ideation: No Homicidal Plan: No Homicidal Intention: No Insight: Poor (Chronic condition) Judgment: Poor (Chronic condition) Discharge/Advance Care Plan - Results Vital Signs: Last Vital Signs Temp 97.8 F 04/16/18 06:12 Pulse 76 04/16/18 06:12 Resp 20 04/16/18 06:12 BP 138/81 04/16/18 06:12 Pulse Ox 97 07/16/18 06:12 Lab Results: Laboratory Results Hemoglobin A1c 4.7 % (4.3-6.0) 04/10/18 10:55 Triglycerides 116 mg/dL (42-150) 04/10/18 10:55 Cholesterol 146 mg/dL (120-200) 04/10/18 10:55 LDL Cholesterol, Calc 66 mg/dL (0-99) 04/10/18 10:55 HDL Cholesterol 56.9 mg/dL (40.0-60.0) 04/10/18 10:55 TSH 1.330 uIU/mL (0.358-3.740) 04/08/18 20:30 Summary of Procedures: None done Pending Results: None - Medications Number of antipsychotic medications at discharge: 0 - Discharge Care Plan Goals to Promote Your Health: * To prevent worsening of your condition and complications * To maintain your health at the optimal level Directions to Meet Your Goals: Take your medications as prescribed Follow your dietary instruction Follow activity as directed Keep your appointments as scheduled Take your immunizations and boosters as scheduled If your symptoms worsen call your PCP, if no PCP go to Urgent Care Center or Emergency Room For 24/04 questions related to your inpatient stay or results of tests pending at discharge, please contact Dr. Clifton Timmons MD at Smoking is Dangerous to Your Health. Avoid second hand smoking
== END 2018-04-16 14:00 | disposition home or self-care (01) ==
LOC: NEDAMB 19:53 → NEDA 04-09 10:06 → H270 04-09 10:37
PROVIDERS: ADMIT Psychiatry & Neurology Psychiatry; ATTEND Psychiatry & Neurology Psychiatry
DX: F60.89 Other specific personality disorders; Y90.6 Blood alcohol level of 120-199 mg/100 ml; F43.10 Post-traumatic stress disorder, unspecified; Z91.14 Patient's other noncompliance with medication regimen; F12.90 Cannabis use, unspecified, uncomplicated; Z91.5 Personal history of self-harm; F19.10 Other psychoactive substance abuse, uncomplicated; F10.129 Alcohol abuse with intoxication, unspecified; Z88.0 Allergy status to penicillin; Z81.8 Family history of other mental and behavioral disorders; F43.25 Adjustment disorder with mixed disturbance of emotions and conduct; F17.210 Nicotine dependence, cigarettes, uncomplicated; F31.9 Bipolar disorder, unspecified

== ENCOUNTER 2018-06-22 15:20 | Inpatient (IN) ==
--- NOTE | 2018-06-22 16:15 | ED ---
HPI General Chief Complaint: Psychiatric Symptoms Stated Complaint: Ronna Espinoza Time Seen by Provider: 06/23/18 13:15 Source: patient Mode of arrival: ambulatory Limitations: no limitations History of Present Illness HPI Narrative: 22-year-old male presents to emergency department under EXPARTE. According to the report the patient does not believe that there is anything wrong and he does not need help and there have been witnessed behaviors of burning himself, laying in the road, cutting himself, making himself throw up, abusing the cat, calling names and hitting. On my examination the patient he reports psychiatric history of split personality disorder, bipolar disorder, alcohol syndrome, PTSD. Denies homicidal or suicidal ideations. Denies auditory or visual hallucinations. Denies illicit drug use. Reports drinking alcohol socially. Reports tobacco use. Says he is prescribed cannabis for his psychiatric disorders. Says he is aggravated by having to take care of his mom and not smoking of cannabis. No known relieving factors. Symptoms are moderate to severe in severity. Onset unknown. Duration chronic. Says he has history of hypertension and seizures and smokes cannabis to lower his blood pressure and control his blood pressures. Allergies to penicillin. Says his psychiatrist and his primary care provider is Andrew Little. Has no other medical complaints. No other modifying factors or associated signs and symptoms. Related Data Home Medications Medication Instructions Recorded Confirmed hydroxyzine HCl 50 mg PO QID PRN 04/08/18 06/22/18 carbamazepine [Tegretol] 0 mg PO TID 05/26/18 06/22/18 propranolol 0 mg PO BID 05/26/18 06/22/18 Allergies Allergy/AdvReac Type Severity Reaction Status Date / Time Penicillins Allergy Severe Rash Verified 06/22/18 15:28 Review of Systems ROS: all other systems reviewed are negative PMFSH Social History Social History Substance History: Active Abuse Second Hand Smoke Exposure: Yes Smoking Status: Current every day smoker Tobacco Type: Cigarettes How Often Do You Have a Drink Containing Alcohol: Monthly or less Recent Travel in [facility] within the Last 8 Weeks: No Recent Out of Country Travel within the Last 8 Weeks: No Exam Narrative Exam Narrative: GENERAL: Well-nourished, well-developed male patient, in no acute distress SKIN: Warm and dry. HEAD: Atraumatic. Normocephalic. EYES: Pupils equal and round. ENT: Mucosa pink and moist. NECK: Supple. Trachea midline. CARDIOVASCULAR: Regular rate and rhythm. No murmur appreciated. RESPIRATORY: No accessory muscle use. Clear to auscultation. Breath sounds equal bilaterally. GASTROINTESTINAL: Abdomen soft, non-tender, nondistended. Hepatic and splenic margins not palpable. Bowel sounds are active 4 quadrants. MUSCULOSKELETAL: No obvious deformities. No clubbing. No cyanosis. No edema. NEUROLOGICAL: Awake and alert. Oriented 3. No obvious cranial nerve deficits. Motor grossly within normal limits. Normal speech. Moves all extremities. 5/5 strength to all extremities. PSYCHIATRIC: No delusional thought processes. No hallucinations. Course Initial Documented Vital Signs Pulse Rate 103 H 06/22/18 15:29 Respiratory Rate 16 06/22/18 15:29 Blood Pressure 196/101 H 06/22/18 15:29 Pulse Oximetry 99 06/22/18 15:29 Last Documented Vital Signs Temperature 98.4 F 06/24/18 06:00 Pulse Rate 91 H 06/24/18 06:00 Respiratory Rate 16 06/24/18 06:00 Blood Pressure 121/82 06/24/18 06:00 Pulse Oximetry 97 06/24/18 06:00 Medical Decision Making MDM Narrative Medical decision making narrative: Patient presents under a EXPARTE. Physical examination and vital signs are essentially unremarkable. Patient has no medical complaints to report. Psych screen has been ordered. If the laboratory results are unremarkable, the patient will be medically cleared for psychiatric evaluation and disposition. Medical Screen Exam Complete: Yes Emergency Medical Condition: Yes Differential Diagnosis Differential Diagnosis: Split personality disorder, bipolar disorder, alcohol syndrome, adjustment disorder, disruptive dysregulation disorder, medical clearance for psychiatric evaluation Lab Data Result diagrams: 06/22/18 15:34 06/22/18 15:34 Lab Results 06/22/18 06/22/18 06/22/18 Range/Units 15:34 15:34 15:34 WBC 14.3 H (4.0-11.0) th/mm3 RBC 5.18 (4.50-5.90) mil/mm3 Hgb 15.9 (13.0-17.0) gm/dL Hct 45.9 (39.0-51.0) % MCV 88.5 (80.0-100.0) fL MCH 30.7 (27.0-34.0) pg MCHC 34.7 (32.0-36.0) % RDW 13.9 (11.6-17.2) % Plt Count 299 (150-450) th/mm3 MPV 8.6 (7.0-11.0) fL Neut % (Auto) 80.3 H (16.0-70.0) % Lymph % (Auto) 14.9 (9.0-44.0) % [place]mort[place] % (Auto) 3.9 (0.0-8.0) % Eos % (Auto) 0.6 (0.0-4.0) % Baso % (Auto) 0.3 (0.0-2.0) % Neut # (Auto) 11.5 H (1.8-7.7) th/mm3 Lymph # (Auto) 2.1 (1.0-4.8) th/mm3 [place]morton # (Auto) 0.6 (0.0-0.9) th/mm3 Eos # (Auto) 0.1 (0.0-0.4) th/mm3 Baso # (Auto) 0.0 (0.0-0.2) th/mm3 WBC Differential . Differential Comment Auto diff final Sodium 141 (136-145) meq/L Potassium 4.3 (3.5-5.1) meq/L Chloride 108 H (98-107) meq/L Carbon Dioxide 24.1 (21.0-32.0) meq/L Anion Gap 9 (5-15) meq/L BUN 11 (7-18) mg/dL Creatinine 0.76 (0.60-1.30) mg/dL Estimated GFR Greater than 89 (>89) mL/min Random Glucose 99 (74-106) mg/dL Calcium 8.8 (8.5-10.1) mg/dL Total Bilirubin 0.5 (0.2-1.0) mg/dL AST 38 H (15-37) U/L ALT 53 (12-78) U/L Alkaline Phosphatase 114 (45-117) U/L Total Protein 7.7 (6.4-8.2) g/dL Albumin 4.0 (3.4-5.0) g/dL TSH 0.326 L (0.358-3.740) uIU/mL Salicylates Less than 1.7 L (2.8-20.0) mg/dL Urine Opiates Screen (Neg) Acetaminophen Less than 2.0 L (10.0-30.0) mcg/mL Ur Barbiturates Screen (Neg) Ur Amphetamines Screen (Neg) U Benzodiazepines Scrn (Neg) Urine Cocaine Screen (Neg) U Cannabinoids Screen (Neg) Serum Alcohol Less than 3 (0-5) mg/dL 06/22/18 Range/Units 17:30 WBC (4.0-11.0) th/mm3 RBC (4.50-5.90) mil/mm3 Hgb (13.0-17.0) gm/dL Hct (39.0-51.0) % MCV (80.0-100.0) fL MCH (27.0-34.0) pg MCHC (32.0-36.0) % RDW (11.6-17.2) % Plt Count (150-450) th/mm3 MPV (7.0-11.0) fL Neut % (Auto) (16.0-70.0) % Lymph % (Auto) (9.0-44.0) % [place]mort[place] % (Auto) (0.0-8.0) % Eos % (Auto) (0.0-4.0) % Baso % (Auto) (0.0-2.0) % Neut # (Auto) (1.8-7.7) th/mm3 Lymph # (Auto) (1.0-4.8) th/mm3 [place]morton # (Auto) (0.0-0.9) th/mm3 Eos # (Auto) (0.0-0.4) th/mm3 Baso # (Auto) (0.0-0.2) th/mm3 WBC Differential Differential Comment Sodium (136-145) meq/L Potassium (3.5-5.1) meq/L Chloride (98-107) meq/L Carbon Dioxide (21.0-32.0) meq/L Anion Gap (5-15) meq/L BUN (7-18) mg/dL Creatinine (0.60-1.30) mg/dL Estimated GFR (>89) mL/min Random Glucose (74-106) mg/dL Calcium (8.5-10.1) mg/dL Total Bilirubin (0.2-1.0) mg/dL AST (15-37) U/L ALT (12-78) U/L Alkaline Phosphatase (45-117) U/L Total Protein (6.4-8.2) g/dL Albumin (3.4-5.0) g/dL TSH (0.358-3.740) uIU/mL Salicylates (2.8-20.0) mg/dL Urine Opiates Screen Neg (Neg) Acetaminophen (10.0-30.0) mcg/mL Ur Barbiturates Screen Neg (Neg) Ur Amphetamines Screen Neg (Neg) U Benzodiazepines Scrn Neg (Neg) Urine Cocaine Screen Neg (Neg) U Cannabinoids Screen Pos H (Neg) Serum Alcohol (0-5) mg/dL Discharge Plan Discharge Disposition Patient Disposition: 30 Still Patient Discharge Condition Condition: Stable Discharge Details Diagnosis: Encounter for medical clearance for patient hold Physicians Team ED Provider: Haris Islas ED Midlevel Provider: Dayana Gallo Primary Care Provider: Primary Care Leyla Dolan Attending Provider: Best Dempsey Discharge Interventions Interventions: ED Discharge Assessment Last Done: 06/23/18 15:19 Status ED Status: Left Department
[2018-06-22 16:28] LABS: Baso % (Auto) 0.3 % (0.0-2.0); Eos # (Auto) 0.1 th/mm3 (0.0-0.4); Eos % (Auto) 0.6 % (0.0-4.0); Hematocrit 45.9 % (39.0-51.0); Hemoglobin 15.9 gm/dL (13.0-17.0); Lymph # (Auto) 2.1 th/mm3 (1.0-4.8); Lymph % (Auto) 14.9 % (9.0-44.0); Mean Corpuscular HGB Conc 34.7 % (32.0-36.0); Mean Corpuscular Hemoglobin 30.7 pg (27.0-34.0); Mean Corpuscular Volume 88.5 fL (80.0-100.0); Mean Platelet Volume 8.6 fL (7.0-11.0); Mono # (Auto) 0.6 th/mm3 (0.0-0.9); Mono % (Auto) 3.9 % (0.0-8.0); Neut # (Auto) 11.5 th/mm3 (1.8-7.7); Neut % (Auto) 80.3 % (16.0-70.0); Platelet Count 299 th/mm3 (150-450); Red Blood Count 5.18 mil/mm3 (4.50-5.90); Red Cell Distribution Width 13.9 % (11.6-17.2); White Blood Count 14.3 th/mm3 (4.0-11.0)
[2018-06-22 16:48] LABS: Alanine Aminotransferase 53 U/L (12-78); Alkaline Phosphatase 114 U/L (45-117); Thyroid Stimulating Hormone 0.326 uIU/mL (0.358-3.740); Total Protein 7.7 g/dL (6.4-8.2)
[2018-06-22 17:04] LABS: Anion Gap 9 meq/L (5-15); Aspartate Aminotransferase 38 U/L (15-37); Blood Urea Nitrogen 11 mg/dL (7-18); Calcium 8.8 mg/dL (8.5-10.1); Carbon Dioxide 24.1 meq/L (21.0-32.0); Chloride 108 meq/L (98-107); Glomerular Filtration Rate Greater Than 89 mL/min (>89); Glucose,Random 99 mg/dL (74-106); Sodium 141 meq/L (136-145)
[2018-06-22 17:08] LABS: Potassium 4.3 meq/L (3.5-5.1)
[2018-06-22 18:08] LABS: Amphetamine Screen,Urine Neg (Neg); Barbiturate Screen,Urine Neg (Neg); Cannabinoid Screen,Urine Pos (Neg); Cocaine Screen,Urine Neg (Neg)
[2018-06-22 18:29] LABS: Opiate Screen,Urine Neg (Neg)
--- NOTE | 2018-06-23 13:31 | ED ---
HPI - Psych - General Source: patient, RN notes reviewed, old records reviewed, other (EX Parte order) Mode of arrival: ambulatory Limitations: no limitations - History of Present Illness MD complaint: other (Ex parte K) Onset (ago): week(s) Duration: constant History of same: Yes Relieving factors: none Exacerbating factors: other Context: not taking psychiatric medications Associated psychiatric symptoms: none Associated symptoms: denies other symptoms Treatments prior to arrival: none - General Chief Complaint: Psychiatric Symptoms Stated Complaint: Ronna Evhenri Time Seen by Provider: 06/23/18 13:15 - History of Present Illness HPI Narrative: History of Present Illness HPI Narrative: 22-year-old male with history of adjustment disorder with disturbance of conduct, mixed personality disorder, substance use disorder, 2 previous psychiatric admissions here at [facility], who presents to emergency department under EXPARTE filed on behalf of his grandmother. The report alleges some other things that on June 21 the patient sprayed himself with Lysol, poured bleach in his room and laundry soap, has been verbally abusive, and is refusing to take his medication. The patient has had previous admissions for very similar concerns. Upon arrival to the unit the patient has been exhibiting episodes of agitation, threatening behavior and has required ETO's. He went into the bathroom, flooded the bathroom and then began yelling at staff that he owns a shower he own the bathroom. He also began to bang with his closed fist on the [place] of nurses station. He was also yelling at staff that he "was not afraid to go to alf for the rest of my life" . He has demonstrated continued inability to manage his impulse and utilizing verbal threats to intimidate staff. When I attempted to interview the patient he repeatedly stated that there was no reason for him to be here. He also indicated that he has not been taking his occasion that he uses medical marijuana for control of his symptoms. He went on to request that he needed some sleeping medication as well. Patient was irritable and demanding. He did not appear to be responding to internal stimuli. He denied suicidal or homicidal ideation, intent or plan. (Gayle Murphy) - Related Data Home Medications Medication Instructions Recorded Confirmed hydroxyzine HCl 50 mg PO QID PRN 04/08/18 06/22/18 carbamazepine [Tegretol] 0 mg PO TID 05/26/18 06/22/18 propranolol 0 mg PO BID 05/26/18 06/22/18 Allergies Allergy/AdvReac Type Severity Reaction Status Date / Time Penicillins Allergy Severe Rash Verified 06/22/18 15:28 [facility] - History History Provided By: Patient - Medical History Medical History: Medical History (Last Reviewed 06/22/18 @ 17:27 by Jackelyn Lutz) Hypertension Mood disorder - Surgical History Surgical History: Surgical History (Last Reviewed 06/22/18 @ 17:27 by Jackelyn Lutz) History of hernia repair - Social History I have reviewed the patient's Social History: Yes - Tobacco History Second Hand Smoke Exposure: Yes Tobacco Use In Past 30 Days: Yes Smoking Status: Heavy tobacco smoker Tobacco Type: Cigarettes - Alcohol History How Often Do You Have a Drink Containing Alcohol: Never - Substance Use History Substance History: Active Abuse - Substance Use Type Marijuana Status: Active Route Used: Inhalation Reason for Use: Calm Down, Sleep - Travel History Recent Travel in the [place] Within the Last 8 Weeks: No Recent Travel Out of the Country Within the Last 8 Weeks: No - Immunization History Tetanus Immunization: >5 Years Hx Influenza Vaccine This Season: No Psychiatric History - Psychiatric History Psychiatric Treatment History: History of Psychiatric Treatment, History of Hospitalization in a Psychiatric Facility History of Inpatient Treatment: Yes Firearms in Home: No - Psychiatric History 2 previous psychiatric admissions to [facility] psychiatry. Previous diagnoses include bipolar disorder, PTSD, poor impulse control disorder. One reported previous suicide attempt by suffocation age [age] years old. (Gayle Murphy) - Legal History Patient is currently on probation for assault on a person over age 65. (Gayle Murphy) Physical Exam - General Limitations: no limitations Mental Status Examination Consciousness: Alert Orientation: x4 Motor Activity: Normal gait Speech: Unremarkable, Pressured, Rapid Language: Adequate Fund of Knowledge: Adequate Attention and Concentration: Adequate Memory: Unremarkable Mood: Angry, Irritable, Other (Intermittently agitated) Affect: Irritable Thought Process & Associations: Intact, Logical, Goal directed Thought Content: Appropriate Hallucination Type: None Delusion Type: None Suicidal Ideation: No Suicidal Plan: No Suicidal Intention: No Homicidal Ideation: No Homicidal Plan: No Homicidal Intention: No Insight: Poor Judgment: Impulsive Initial Documented Vital Signs Pulse Rate 103 H 06/22/18 15:29 Respiratory Rate 16 06/22/18 15:29 Blood Pressure 196/101 H 06/22/18 15:29 Pulse Oximetry 99 06/22/18 15:29 Last Documented Vital Signs Temperature 98 F 06/22/18 21:53 Pulse Rate 80 06/22/18 21:53 Respiratory Rate 14 06/22/18 21:53 Blood Pressure 112/67 06/22/18 21:53 Pulse Oximetry 98 06/22/18 21:53 MDM - Psych - Diagnosis (1) Adjustment disorder with mixed disturbance of emotions and conduct Status: Acute - Lab Data Result diagrams: 06/22/18 15:34 06/22/18 15:34 - MDM Narrative Medical decision making narrative: At the time of this evaluation the patient presents with intermittent episodes of agitated and threatening behavior towards staff. He has required medication. He presents an elevated risk of danger towards others and therefore will be admitted to inpatient psychiatry for further observation, safety, stabilization. (Gayle Murphy) - Lab Data Lab Results 06/22/18 06/22/18 06/22/18 Range/Units 15:34 15:34 15:34 WBC 14.3 H (4.0-11.0) th/mm3 RBC 5.18 (4.50-5.90) mil/mm3 Hgb 15.9 (13.0-17.0) gm/dL Hct 45.9 (39.0-51.0) % MCV 88.5 (80.0-100.0) fL MCH 30.7 (27.0-34.0) pg MCHC 34.7 (32.0-36.0) % RDW 13.9 (11.6-17.2) % Plt Count 299 (150-450) th/mm3 MPV 8.6 (7.0-11.0) fL Neut % (Auto) 80.3 H (16.0-70.0) % Lymph % (Auto) 14.9 (9.0-44.0) % [place] % (Auto) 3.9 (0.0-8.0) % Eos % (Auto) 0.6 (0.0-4.0) % Baso % (Auto) 0.3 (0.0-2.0) % Neut # (Auto) 11.5 H (1.8-7.7) th/mm3 Lymph # (Auto) 2.1 (1.0-4.8) th/mm3 [place] # (Auto) 0.6 (0.0-0.9) th/mm3 Eos # (Auto) 0.1 (0.0-0.4) th/mm3 Baso # (Auto) 0.0 (0.0-0.2) th/mm3 WBC Differential . Differential Comment Auto diff final Sodium 141 (136-145) meq/L Potassium 4.3 (3.5-5.1) meq/L Chloride 108 H (98-107) meq/L Carbon Dioxide 24.1 (21.0-32.0) meq/L Anion Gap 9 (5-15) meq/L BUN 11 (7-18) mg/dL Creatinine 0.76 (0.60-1.30) mg/dL Estimated GFR Greater than 89 (>89) mL/min Random Glucose 99 (74-106) mg/dL Calcium 8.8 (8.5-10.1) mg/dL Total Bilirubin 0.5 (0.2-1.0) mg/dL AST 38 H (15-37) U/L ALT 53 (12-78) U/L Alkaline Phosphatase 114 (45-117) U/L Total Protein 7.7 (6.4-8.2) g/dL Albumin 4.0 (3.4-5.0) g/dL TSH 0.326 L (0.358-3.740) uIU/mL Salicylates Less than 1.7 L (2.8-20.0) mg/dL Urine Opiates Screen (Neg) Acetaminophen Less than 2.0 L (10.0-30.0) mcg/mL Ur Barbiturates Screen (Neg) Ur Amphetamines Screen (Neg) U Benzodiazepines Scrn (Neg) Urine Cocaine Screen (Neg) U Cannabinoids Screen (Neg) Serum Alcohol Less than 3 (0-5) mg/dL 06/22/18 Range/Units 17:30 WBC (4.0-11.0) th/mm3 RBC (4.50-5.90) mil/mm3 Hgb (13.0-17.0) gm/dL Hct (39.0-51.0) % MCV (80.0-100.0) fL MCH (27.0-34.0) pg MCHC (32.0-36.0) % RDW (11.6-17.2) % Plt Count (150-450) th/mm3 MPV (7.0-11.0) fL Neut % (Auto) (16.0-70.0) % Lymph % (Auto) (9.0-44.0) % [place] % (Auto) (0.0-8.0) % Eos % (Auto) (0.0-4.0) % Baso % (Auto) (0.0-2.0) % Neut # (Auto) (1.8-7.7) th/mm3 Lymph # (Auto) (1.0-4.8) th/mm3 [place] # (Auto) (0.0-0.9) th/mm3 Eos # (Auto) (0.0-0.4) th/mm3 Baso # (Auto) (0.0-0.2) th/mm3 WBC Differential Differential Comment Sodium (136-145) meq/L Potassium (3.5-5.1) meq/L Chloride (98-107) meq/L Carbon Dioxide (21.0-32.0) meq/L Anion Gap (5-15) meq/L BUN (7-18) mg/dL Creatinine (0.60-1.30) mg/dL Estimated GFR (>89) mL/min Random Glucose (74-106) mg/dL Calcium (8.5-10.1) mg/dL Total Bilirubin (0.2-1.0) mg/dL AST (15-37) U/L ALT (12-78) U/L Alkaline Phosphatase (45-117) U/L Total Protein (6.4-8.2) g/dL Albumin (3.4-5.0) g/dL TSH (0.358-3.740) uIU/mL Salicylates (2.8-20.0) mg/dL Urine Opiates Screen Neg (Neg) Acetaminophen (10.0-30.0) mcg/mL Ur Barbiturates Screen Neg (Neg) Ur Amphetamines Screen Neg (Neg) U Benzodiazepines Scrn Neg (Neg) Urine Cocaine Screen Neg (Neg) U Cannabinoids Screen Pos H (Neg) Serum Alcohol (0-5) mg/dL
[2018-06-23] MEDS ORDERED: Aluminum/Magnesium/Simethacone Susp 30 ML UDC PO PRN (13:36)
[2018-06-23] MEDS ORDERED: LORazepam 1 MG Tablet PO PRN (13:36)
--- NOTE | 2018-06-24 11:53 | ECG ---
Date Performed: 06/24/2018 Time Performed: 09:50:57 PTAGE: 22 years EKG: SINUS TACHYCARDIA NONSPECIFIC T-WAVE ABNORMALITY ABNORMAL RHYTHM ECG Since the PREVIOUS TRACING , no significant change noted PREVIOUS TRACIN05/26/2018 18.33 DOCTOR: Zainab Guevara Interpretating Date/Time 06/24/2018 11:49:44
--- NOTE | 2018-06-24 13:25 | P.HPPSY ---
Provisional Diagnosis Admission Date: June 23, 2018 13:36 [place] I.: adjustment d/o with mixed disturbance of emotions and conduct [place] III.: focal onset seizures Competence Certification of Person's Competence To Provide Express and Informed Consent I have personally examined Miguel Angel Salmon, a person being served at [facility] on, June 24, 2018 1259. Express and informed consent means consent voluntarily given in writing, by a competent person, after sufficient explanation and disclosure of the subject matter involved to enable the person to make a knowing and willful decision without any element of force, fraud, deceit, duress, or other form of constraint or coercion. This person is 18 years of age or older, is not now known to be incompetent to consent to treatment with a guardian advocate, and does not have a health care surrogate or proxy currently making medical treatment decisions. I have found this person to be one of the following: [] Competent to provide express and informed consent, as defined above, for voluntary admission to this facility and is competent to provide express and informed consent for treatment. He/she has the consistent capacity to make well reasoned, willful, and knowing decisions concerning his or her medical or mental health treatment. The person fully and consistently understands the purpose of the admission for examination/placement and is fully capable of personally exercising all rights assured [place] [] Incompetent to provide express and informed consent to voluntary admission, and this is incompetent to provide express and informed consent to treatment. The person must be transferred to involuntary status and a petition for a guardian advocate filed with the Circuit Court. [x] Refusing to provide express and informed consent to voluntary admission but is competent to provide express and informed consent for treatment. The person must be discharged or transferred to involuntary status. Form shall be completed within 24 hours of a person's arrival at the receiving facility and filed in the clinical record of each person: 1. Admitted on a voluntary basis 2. Permitted to provide express and informed consent to his/her own treatment 3. Allowed to transfer from involuntary to voluntary status 4. Prior to permitting a person to consent to his or her own treatment after having been previously found incompetent to consent to treatment. History of Present Illness Capacity: Has capacity History of Present Illness: Chart reviewed. Pt seen and discussed with staff. Pt is a 22YOWM well known to service from previous admissions for adjustment d/o, mixed personality disorder , and substance disorder was admitted on an ex-parte taken out by family alleging that pt has been aggressive and agitated at home. Report alleges that pt has been refusing to take medications and sprayed himself with lysol, poured bleach and laundry soap in room and has been verbally abusive to grandmother with whom he lives. Upon arrival to [facility], pt was agitated and aggressive and required ETOs for safety. He exhibits poor impulse control. Pt states that he stopped taking medications and instead is using medical cannabis prescribed by a "Dr. Francisco Little". He states that he is using medication to treat seizures, ptsd, chronic pain, nausea and "all of the things it can do." He reports that 4 weeks ago he took an overdose of tegretol because he was upset. 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 He states that prior to discontinuing tegretol, his dose had been lowered to 150mg po BID by his PCP but doesn't know why. "I wasn't taking it anyway. I wanted to save the money for marijuana". He admits that mood was better controlled when he was taking seizure medications and is agreeable to restart. He states that he is angry at family because he has to pay rent and he is focused on making sure he can afford medical cannabis. He denies SI/HI. He c/ o of poor sleep since stopping medications and reports that hydroxyzine has been helpful in the past. - Inpatient Certification I certify that the inpatient services were ordered in accordance with Medicare regulations governing the order. This includes certification that hospital inpatient services are reasonable and necessary and in the case of services not specified as inpatient-only under 42 CFR 419.22(n), that they are appropriately provided as inpatient services in accordance to with the 2-midnight benchmark under 43 CFR 412.3(e) I certify that inpatient psychiatric hospital services are medically necessary. Evaluation and treatment and/or diagnostic testing are expected to improve the patient's condition. The patient needs on a daily basis, active treatment furnished directly by or requiring the supervision of inpatient psychiatric facility personnel. Estimated Total Length of Stay (Days): 5 Plans for Post Hospital Care: Home [facility] - History History Provided By: Patient - Medical History Medical History: Medical History (Last Updated 06/24/18 @ 18:54 by Ivon Montilla MD) Epilepsy Hypertension Mood disorder - Surgical History Surgical History: Surgical History (Last Reviewed 06/22/18 @ 17:27 by Jackelyn Lutz) History of hernia repair - Tobacco History Second Hand Smoke Exposure: Yes Tobacco Use In Past 30 Days: Yes Smoking Status: Current every day smoker Tobacco Type: Cigarettes - Alcohol History How Often Do You Have a Drink Containing Alcohol: Monthly or less - Substance Use History Substance History: Active Abuse - Substance Use Type Marijuana Status: Active Route Used: By Mouth Reason for Use: Feels Good - Travel History Recent Travel in the [place] Within the Last 8 Weeks: No Recent Travel Out of the Country Within the Last 8 Weeks: No - Immunization History Tetanus Immunization: >5 Years Hx Influenza Vaccine This Season: No Medications and Allergies Active Medications: Active Medications Al Hydrox/Mg Hydrox/Simethicone (Mag-Al Plus Susp Liq) 30 ml PO Q6H PRN PRN Reason: DYSPEPSIA Al Hydroxide/Mg Hydroxide (Milk Of Magnesia Liq) 30 ml PO Q12H PRN PRN Reason: Mild Constipation Haloperidol Lactate (Haldol Inj) 10 mg IM Q6H PRN PRN Reason: SEVERE AGITATION Lorazepam (Ativan) 1 mg PO Q6H PRN PRN Reason: MODERATE TO SEVERE ANXIETY Nicotine (Habitrol 21 Mg Patch.24 Hr) 1 patch T-DERMAL DAILY [facility] Last Admin: 06/24/18 08:14 Dose: 1 patch Patch Removal (Remove Old Patch) 1 each T-DERMAL DAILY [facility] Last Admin: 06/24/18 08:15 Dose: Not Given Sennosides (Senokot) 17.2 mg PO Q12H PRN PRN Reason: Moderate Constipation Allergies Allergy/AdvReac Type Severity Reaction Status Date / Time Penicillins Allergy Severe Rash Verified 06/22/18 15:28 Home Medications Medication Instructions Recorded Confirmed Type hydroxyzine HCl 50 mg PO QID PRN 04/08/18 06/22/18 History carbamazepine [Tegretol] 0 mg PO TID 05/26/18 06/22/18 History propranolol 0 mg PO BID 05/26/18 06/22/18 History Results - Labs CBC & Chem 7: 06/22/18 15:34 06/22/18 15:34 Exam Vital signs: Vital Signs 06/23/18 18:42 06/24/18 06:00 Temperature 98.4 F Pulse Rate 114 H 91 H Respiratory Rate 17 16 Blood Pressure 124/68 121/82 Pulse Oximetry 98 97 Intake & Output 06/23/18 06/24/18 06/24/18 18:59 06:59 18:59 Weight 90.2 kg Other: Weight On Admission 90.2 kg Mental Status Examination Appearance: Disheveled Consciousness: Alert Orientation: x4 Motor Activity: Normal gait Speech: Unremarkable Language: Adequate Fund of Knowledge: Adequate Attention and Concentration: Adequate Memory: Unremarkable Mood: Irritable, Other (easily agitated) Affect: Irritable Thought Process & Associations: Intact, Goal directed, Linear Thought Content: Appropriate Hallucination Type: None Delusion Type: None Suicidal Ideation: No Suicidal Plan: No Suicidal Intention: No Homicidal Ideation: No Homicidal Plan: No Homicidal Intention: No Insight: Poor Judgment: Impulsive Assessment and Plan - Assessment (1) Adjustment disorder with mixed disturbance of emotions and conduct Code(s): F43.25 - Adjustment disorder with mixed disturbance of emotions and conduct Status: Acute - Plan Plan: Estimated LOS: [] days Will restart carbamazepine and titrate to effect dose for mood stabilization. Pt was counseled about cannabis abuse. Continue current level of precautions and hospitalization for safety. Obtain collateral information from grandmother and family. Justification for Continued Inpatient Stay: agitation
[2018-06-24] MEDS: carBAMazepine 100 MG Chewable Tablets PO SCH (20:33)
[2018-06-25 06:53] LABS: Anion Gap 9 meq/L (5-15); Blood Urea Nitrogen 19 mg/dL (7-18); Calcium 8.6 mg/dL (8.5-10.1); Carbon Dioxide 24.2 meq/L (21.0-32.0); Chloride 108 meq/L (98-107); Glomerular Filtration Rate Greater Than 89 mL/min (>89); Glucose,Random 93 mg/dL (74-106); Potassium 3.5 meq/L (3.5-5.1); Sodium 141 meq/L (136-145)
[2018-06-25 06:54] LABS: Cholesterol 112 mg/dL (120-200); Triglycerides 58 mg/dL (42-150)
[2018-06-25 06:56] LABS: Chol/HDL Ratio 2.51 Ratio; HDL Cholesterol 44.5 mg/dL (40.0-60.0); LDL Cholesterol,Calculated 56 mg/dL (0-99)
[2018-06-25] MEDS: carBAMazepine 100 MG Chewable Tablets PO SCH ×2 (08:20→20:13)
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
[2018-06-25 15:55] LABS: Baso % (Auto) 0.3 % (0.0-2.0); Eos % (Auto) 0.3 % (0.0-4.0); Hematocrit 47.5 % (39.0-51.0); Hemoglobin 15.9 gm/dL (13.0-17.0); Lymph # (Auto) 1.7 th/mm3 (1.0-4.8); Lymph % (Auto) 13.1 % (9.0-44.0); Mean Corpuscular HGB Conc 33.5 % (32.0-36.0); Mean Corpuscular Hemoglobin 29.5 pg (27.0-34.0); Mean Corpuscular Volume 88.1 fL (80.0-100.0); Mean Platelet Volume 8.5 fL (7.0-11.0); Mono # (Auto) 0.7 th/mm3 (0.0-0.9); Mono % (Auto) 5.4 % (0.0-8.0); Neut # (Auto) 10.5 th/mm3 (1.8-7.7); Neut % (Auto) 80.9 % (16.0-70.0); Platelet Count 306 th/mm3 (150-450); Red Blood Count 5.39 mil/mm3 (4.50-5.90); Red Cell Distribution Width 13.9 % (11.6-17.2)
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
[2018-06-25] MEDS ORDERED: ARIPiprazole 5 MG Tablet PO SCH (21:00)
[2018-06-26] MEDS: carBAMazepine 100 MG Chewable Tablets PO SCH ×2 (08:23→20:20)
--- NOTE | 2018-06-26 10:09 | P.TTN ---
- Patient Problems Problems: 1. Discharge planning 2. Medication compliance 3. Knowledge deficit 4. Lack of coping skills - Progress Toward Goals Provider Present: Dr. Jose Carlos Timmons (Patient needs to remain for further stabilization, we will take patient to court on , June 28, 2018, Dr. Bustamante will see patient for neuro evaluation.) Psychiatric Counselors Present: Rustam Washburn Jr., [facility] (Rustam will contact [facility] case managers Ashutosh to testify in court on .) Group Spec/RT/OT/ONOFRE Present: JEMIMA Sanchez (Patient attends group) - Documentation Teaching Recipient: Patient
--- NOTE | 2018-06-26 11:48 | P.PNPSY ---
Subjective Remarks: Patient seen and examined with nurse. Chart reviewed. Case discussed with nursing staff who reports DCF report was submitted and police came to interview the patient in connection with his allegations from yesterday although he was noted to change his story multiple times. Case discussed in treatment team. On my examination today, the patient remains tangential. He says that he feels like his heart is "beating out of his chest" although his pulse rate is not elevated when I examine him. He says his heart is racing because he is not smoking cannabis. His insight into need for medications is poor. He remains quite childlike and attention seeking. No side effects from medications. No other physical complaints. Vital Signs Temp Pulse Resp BP Pulse Ox 06/26/18 06:18 97.9 F 83 18 127/60 99 Laboratory Results - last 24 hr 06/25/18 06/25/18 06:06 15:44 WBC 13.0 H RBC 5.39 Hgb 15.9 Hct 47.5 MCV 88.1 MCH 29.5 MCHC 33.5 RDW 13.9 Plt Count 306 MPV 8.5 Neut % (Auto) 80.9 H Lymph % (Auto) 13.1 [place] % (Auto) 5.4 Eos % (Auto) 0.3 Baso % (Auto) 0.3 Neut # (Auto) 10.5 H Lymph # (Auto) 1.7 [place] # (Auto) 0.7 Eos # (Auto) 0.0 Baso # (Auto) 0.0 WBC Differential . Differential Comment Auto diff final Hemoglobin A1c 5.0 Stable leukocytosis. No signs or symptoms of infection. Looking back, I note the patient's white blood cell count has been persistently elevated throughout previous assays. EKG reviewed. Impressions Skull X-Ray 06/25/18 00:00 CONCLUSION: No evidence of fracture Review of Systems All other systems reviewed negative except as stated in HPI Mental Status Examination Appearance: Disheveled Consciousness: Alert Orientation: Person, Place (at least) Motor Activity: Other (No abnormal motor movements noted) Speech: Unremarkable Language: Adequate Fund of Knowledge: Adequate Attention and Concentration: Adequate Memory: Unremarkable Mood: Oppositional, Anxious Affect: Labile, Other (Childlike) Thought Process & Associations: Tangential Thought Content: Delusional Hallucination Type: None Delusion Type: Paranoid, Somatic Suicidal Ideation: No Suicidal Plan: No Suicidal Intention: No Homicidal Ideation: No Homicidal Plan: No Homicidal Intention: No Insight: Poor Judgment: Impulsive Assessment and Plan - Assessment (1) Adjustment disorder with mixed disturbance of emotions and conduct Code(s): F43.25 - Adjustment disorder with mixed disturbance of emotions and conduct Status: Acute (2) Cannabis abuse Code(s): F12.10 - Cannabis abuse, uncomplicated Status: Acute (3) Mixed personality disorder Code(s): F60.89 - Other specific personality disorders Status: Chronic - Plan Plan: Titrate Abilify to 10 mg at bedtime to target thought disorder. Rule out some degree of underlying psychotic illness. Continue other psychotropics as ordered and plan to obtain carbamazepine level later in the week. Continue to monitor on the high acuity unit. Awaiting neuropsychological evaluation. Continue other medications and care as ordered. Justification for Continued Inpatient Stay: Medication changes. Impairment in reality construction. Risk for decompensation in less restrictive environment. Discharge Planning: Pending psychiatric stabilization Request Healthcare Surrogate/Guardian Advocate?: Yes
[2018-06-26] MEDS ORDERED: ARIPiprazole 10 MG Tablet PO SCH (21:00)
[2018-06-27] MEDS: carBAMazepine 100 MG Chewable Tablets PO SCH ×2 (09:21→20:04)
--- NOTE | 2018-06-27 13:13 | P.PNPSY ---
Subjective Remarks: Patient seen and examined with nurse. Chart reviewed. Case discussed with nursing staff who reports patient remains childlike and attention seeking and somewhat bizarre at times. On my examination today, the patient does seem a little more organized. He feels that addition of Abilify is helpful and is "improving my life." He launches into a long narrative about how he wishes a pill that could, in effect, instill empathy in him. No side effects from medications. No physical complaints. Vital Signs Temp Pulse Resp BP Pulse Ox 06/27/18 05:59 97.8 F 83 17 138/63 98 06/26/18 18:24 98.4 F 99 H 19 151/81 H 98 Labs reviewed. No new labs. Review of Systems All other systems reviewed negative except as stated in HPI (Limitation: Thought disorder) Mental Status Examination Appearance: Disheveled (Improving) Consciousness: Alert Orientation: Person, Place (at least) Motor Activity: Other (No motoric abnormalities noted) Speech: Unremarkable Language: Adequate Fund of Knowledge: Adequate Attention and Concentration: Adequate Memory: Unremarkable Mood: Other (Calm) Affect: Other (Childlike) Thought Process & Associations: Circumstantial (Tangential at times) Thought Content: Delusional Hallucination Type: None Delusion Type: Paranoid, Somatic Suicidal Ideation: No Suicidal Plan: No Suicidal Intention: No Homicidal Ideation: No Homicidal Plan: No Homicidal Intention: No Insight: Poor Judgment: Impulsive Assessment and Plan - Assessment (1) Adjustment disorder with mixed disturbance of emotions and conduct Code(s): F43.25 - Adjustment disorder with mixed disturbance of emotions and conduct Status: Acute (2) Cannabis abuse Code(s): F12.10 - Cannabis abuse, uncomplicated Status: Acute (3) Mixed personality disorder Code(s): F60.89 - Other specific personality disorders Status: Chronic - Plan Plan: Perhaps some early improvement with Abilify. Continue Abilify titration to 15 mg at bedtime. Continue carbamazepine as ordered and plan to check a carbamazepine level over the weekend. Await neuropsychological evaluation. Continue to monitor on the inpatient unit. Continue other medications and care as ordered. Justification for Continued Inpatient Stay: Medication changes. Risk for decompensation in less restrictive environment. Discharge Planning: Pending psychiatric stabilization. Request Healthcare Surrogate/Guardian Advocate?: Yes
--- NOTE | 2018-06-27 14:47 | P.NPEVAL ---
Disclaimer Patient was given an explanation of the nature and purpose of the evaluation. Patient agreed to proceed with the evaluation and treatment plan. History - Reason for Referral The patient is a 22 year old right handed male who was admitted to the psychiatry unit of [facility] on 06/22/2018 under [place] act for aggressive and agitated behaviors, refusing to take his medications and THC abuse. Apparently, the patient has a history of alcohol syndrome. He reported a 10th grade education and minimal to no work history. He lives with his parents. He reports chronic THC abuse. He is referred for baseline neuropsychological evaluation to assess cognitive, behavioral and emotional aspects of his condition and to provide treatment recommendations. - Additional Psychosocial History Smoking Status: Current every day smoker Tobacco Use In Past 30 Days: Yes Hx Substance Use: Yes Education Level: 12 Years or Less Hand Dominance: Right PMFSH - History History Provided By: Patient - Medical History Medical History: Medical History (Last Updated 06/24/18 @ 18:54 by Ivon Montilla MD) Epilepsy Hypertension Mood disorder - Surgical History Surgical History: Surgical History (Last Reviewed 06/22/18 @ 17:27 by Jackelyn Lutz) History of hernia repair - Tobacco History Second Hand Smoke Exposure: Yes Tobacco Use In Past 30 Days: Yes Smoking Status: Current every day smoker Tobacco Type: Cigarettes - Alcohol History How Often Do You Have a Drink Containing Alcohol: Monthly or less - Substance Use History Substance History: Active Abuse - Substance Use Type Marijuana Status: Active Route Used: By Mouth Reason for Use: Feels Good - Travel History Recent Travel in the [place] Within the Last 8 Weeks: No Recent Travel Out of the Country Within the Last 8 Weeks: No - Immunization History Tetanus Immunization: >5 Years Hx Influenza Vaccine This Season: No Medications Active Medications Al Hydrox/Mg Hydrox/Simethicone (Mag-Al Plus Susp Liq) 30 ml PO Q6H PRN PRN Reason: DYSPEPSIA Al Hydroxide/Mg Hydroxide (Milk Of Magnesia Liq) 30 ml PO Q12H PRN PRN Reason: Mild Constipation Aripiprazole (Abilify) 10 mg PO HS TC Last Admin: 06/26/18 20:20 Dose: 10 mg Carbamazepine (Tegretol Chewable) 200 mg PO BID TC Last Admin: 06/27/18 09:21 Dose: 200 mg Haloperidol Lactate (Haldol Inj) 10 mg IM Q6H PRN PRN Reason: SEVERE AGITATION Hydroxyzine Pamoate (Vistaril) 50 mg PO Q6H PRN PRN Reason: Anxiety or sleep Last Admin: 06/26/18 20:20 Dose: 50 mg Nicotine (Habitrol 21 Mg Patch.24 Hr) 1 patch T-DERMAL DAILY [facility] Last Admin: 06/27/18 09:55 Dose: Not Given Patch Removal (Remove Old Patch) 1 each T-DERMAL DAILY TC Last Admin: 06/27/18 09:56 Dose: Not Given Mental Status Assessment - Mental Status Orientation: oriented to: Self, Place, Time, Situation Mental Status: WFL: Attention, Variable: Language/interactions, Problem-solving , Impaired: Thought processing, Learning/memory Adjustment/Coping Assessment - Adjustment/Coping Adjustment/Coping: None: Depression, Severe: Awareness, Insight - Observation In terms of emotional functioning, the patient demonstrated significant challenges. This patient demonstrated no signs of agitation, impulsivity or disinhibition, although there was questionable evidence of a formal thought disorder or psychosis. There was no evidence of depression or anxiety. The Geriatric Depression Scale-Short Form was administered given the ease to which it is administered to persons with known neurological pathology, and the patient endorsed 1 of 15 symptoms, which falls within the non depressed range. Thought content was free from suicidal, homicidal or paranoid ideation, and thought processes were bradyphrenic, tangential and concrete. The patients mood was apathetic, and his affect was flat. The patient appears to possess minimal to no insight and awareness into their situation and within the limits of this brief evaluation, poor judgment. - Goals/Team Members LTG Status: Deferred STG Status: Deferred Team Members: Neuropsychologist Effort Effort: Average Cognition Assessment - Attention/Processing Speed Rating: WFL: Visual perception, Spatial judgment, Variable: Language, Impaired: Attention/processing, Immediate & delayed memory, Executive, Awareness - insight adjustment Observation: The patient was alert and oriented to person, place, time and circumstances surrounding the recent hospitalization. The Mini-Mental State Exam was administered, and the patient obtained a score of 28 out of 30 points, which falls in the normal range. However, on further evaluation, specific deficits were identified. In terms of attention skills, the patient exhibited normal abilities. The patient was able to remain on task and remember basic and complex verbal instructions. The patient was able to spell the word WORLD backwards and he was able to complete oral arithmetic problems without incident. In terms of memory functioning, the patient exhibited challenges. The patients initial registration of verbal information was normal, and the patient was able to improve his memory with repetition. After a period of delay , the patient was unable to recall this information from memory to normal levels. More specifically, on the Luria Memory Words Test-Short Form, the patients trial one performance was 5 of 7 words, trial five performance was 7 of 7 words, the patients Total Learning score was 31 (above cut-off), but the patients Delayed recall score was only 3 of 7 words (below cut-off). The patients ability to recall verbal information in a paragraph format was considered impaired, due in part to his registration of the information and his ensuing confabulation of what he recalled both immediately and on delay. In terms of speech and language skills, the patient demonstrated relatively normal abilities. The patients initiated spontaneous conversation throughout the assessment. Speech was characterized by adequate prosody, grammar, articulation, volume and rate. No remarkable dysnomic or paraphasic errors were noted either during conversational speech or on confrontation naming tasks. Reading recognition skills were relatively adequate, as were writing skills. His reading recognition skills fell at a standard score of 89 ( percentile rank of 23), which would be consistent with a baseline intellectual functioning of Low Average. The patients comprehension for basic one- and two- stage commands was attenuated by his memory difficulties. In terms of problem- solving skills, the patient exhibited challenges. The patients ability to understand abstraction reasoning was abnormal, as reflected in his difficulties abstracting essential shared characteristics of objects and concepts. In contrast, mathematical reasoning skills were relatively intact. Speed of information processing, as evaluated by both the Letter and Category Fluency Tests was quite impaired, attenuated further by clang and illogical associations. Finally, there was no evidence of ideomotor apraxia or constructional difficulties during this brief evaluation. Summary/Diagnosis - Summary/Impressions Summary: Neuropsychological evaluation results reveal neurocognitive deficits of memory ( attenuated further by confabulation), processing speed and abstract reasoning skills. His estimated Full Scale IQ score would fall within the Low Average range, but his neurocognitive deficits further limit what his intelligence would allow him to more adequately function and achieve. Furthermore, he demonstrates considerably impaired insight, awareness and judgment and he is not an appropriate partner in his own health care. Emotionally, he denies depressive or anxious affect, but his limited awareness and insight precludes validity to his self-report. The overall constellation of neuropsychological findings would be consistent with a diagnosis of alcohol syndrome based on phenotypic characteristics of the patient and the deficits determined in this evaluation. Recommendations Recommendations: In my clinical opinion, this patient lacks decision making capacity, as he is unable to appreciate a situation and its likely consequences, and he is unable to manipulate information rationally. Continued psychiatric evaluation and treatment is recommended. This patient is non compliant with his medication regimen, instead would rather smoke THC, and he lacks insight, awareness and judgment. He will remain a compliance problem going forward.
[2018-06-28] MEDS: carBAMazepine 100 MG Chewable Tablets PO SCH ×2 (08:51→21:47)
--- NOTE | 2018-06-28 10:01 | P.PNPSY ---
Subjective Remarks: Patient seen and case discussed with nursing staff. Chart reviewed. Patient continues to display poor impulse control per nursing staff. For me today, the patient remains quite childlike. He perseverates on this providers quotation of patient's own profanity in my testimony to the [place] court hearing. When he was retained by the golf club assembler, he let loose a tirade of expletives, "shit, fuck, dumb fuck, dumb fuck fuck." He also refers to the court as a "stupid fuck." He further refers to this provider as a "nier" later as he passes me in the [place]. He remains impulsive, disinhibited and behaviorally dysregulated. After he was retained by the court, patient is reported to have thrown a chair per nursing and was medicated with Haldol p.r.n. No evident side effects from medications. No physical complaints. Vital Signs Temp Pulse Resp BP Pulse Ox 06/28/18 06:01 98.2 F 87 16 128/69 99 Labs reviewed. No new labs. Review of Systems other (Limited ROS today) Mental Status Examination Appearance: Other (Fair grooming) Consciousness: Alert Orientation: Person, Place (at least) Motor Activity: Other (No abnormal motor movements noted) Speech: Unremarkable Language: Adequate Fund of Knowledge: Adequate Attention and Concentration: Adequate Memory: Unremarkable Mood: Other (Dysphoric) Affect: Labile, Other (Childlike) Thought Process & Associations: Circumstantial Thought Content: Delusional Hallucination Type: None Delusion Type: Paranoid Suicidal Ideation: No Homicidal Ideation: No Insight: Poor Judgment: Impulsive Assessment and Plan - Assessment (1) Adjustment disorder with mixed disturbance of emotions and conduct Code(s): F43.25 - Adjustment disorder with mixed disturbance of emotions and conduct Status: Acute (2) Cannabis abuse Code(s): F12.10 - Cannabis abuse, uncomplicated Status: Acute (3) Mixed personality disorder Code(s): F60.89 - Other specific personality disorders Status: Chronic (4) FAS ( alcohol syndrome) Code(s): Q86.0 - alcohol syndrome (dysmorphic) Status: Acute (5) Mild neurocognitive disorder Code(s): G31.84 - Mild cognitive impairment, so stated Status: Acute - Plan Plan: Titrate Abilify to 20 mg at bedtime. Continue Tegretol as ordered with plans to check a Tegretol level later in the week. Neuropsychology input noted and appreciated. Continue to monitor on the high acuity unit. 2 new other medications and care as ordered. Patient's case was presented to the [place] court, and the patient was retained on the unit by the golf club assembler with his grandmother to serve as guardian advocate. Justification for Continued Inpatient Stay: Impairment in social function. Medication changes. High risk for decompensation in less restrictive environment. Discharge Planning: To be determined. Given the chronicity and severity of the patient's illness I will initiate a [facility] psychiatric hospital referral in case no alternative safe discharge plan can be arranged. Request Healthcare Surrogate/Guardian Advocate?: Yes
[2018-06-28] MEDS: Haloperidol Inj 5 MG/ML Ampul IM PRN (10:54)
[2018-06-28] MEDS: ARIPiprazole 10 MG Tablet PO SCH (21:46)
[2018-06-29] MEDS: carBAMazepine 100 MG Chewable Tablets PO SCH ×2 (09:04→20:36)
--- NOTE | 2018-06-29 11:57 | P.PNPSY ---
Subjective Remarks: Patient seen and examined with nurse. Chart reviewed. Case discussed with nursing staff. Today, the patient remains quite childlike. He blames others for his hospitalization here. He continues to display poor impulse control and poor frustration tolerance. At one point he asks "why can't you just go along with what I want?" When I discuss with patient the possibility of placement or perhaps state hospitalization, he becomes quite upset in a fairly passive aggressive fashion. He does request a new doctor and I presented the case to Dr. Brewer who presently declines to assume care. No side effects from medications. No physical complaints. Vital Signs Temp Pulse Resp BP Pulse Ox 06/29/18 06:00 97.8 F 82 16 116/56 L 100 06/28/18 17:40 97.7 F 88 17 137/80 98 Labs reviewed. No new labs. Review of Systems All other systems reviewed negative except as stated in HPI Mental Status Examination Appearance: Other (Fair grooming) Consciousness: Alert Orientation: Person, Place (at least) Motor Activity: Other (No motoric abnormalities noted) Speech: Unremarkable Language: Adequate Fund of Knowledge: Adequate Attention and Concentration: Adequate Memory: Unremarkable Mood: Other (Remains dysphoric) Affect: Labile, Other (Remains childlike) Thought Process & Associations: Circumstantial Thought Content: Delusional Hallucination Type: None Delusion Type: Paranoid Suicidal Ideation: No Suicidal Plan: No Suicidal Intention: No Homicidal Ideation: No Homicidal Plan: No Homicidal Intention: No Insight: Poor Judgment: Impulsive Assessment and Plan - Assessment (1) Adjustment disorder with mixed disturbance of emotions and conduct Code(s): F43.25 - Adjustment disorder with mixed disturbance of emotions and conduct Status: Acute (2) Cannabis abuse Code(s): F12.10 - Cannabis abuse, uncomplicated Status: Acute (3) Mixed personality disorder Code(s): F60.89 - Other specific personality disorders Status: Chronic (4) FAS ( alcohol syndrome) Code(s): Q86.0 - alcohol syndrome (dysmorphic) Status: Acute (5) Mild neurocognitive disorder Code(s): G31.84 - Mild cognitive impairment, so stated Status: Acute - Plan Plan: Continue carbamazepine as ordered and plan to check carbamazepine level in the morning. Please consider adjusting dose of carbamazepine based on the level if subtherapeutic. Continue Abilify as ordered and please consider titrating this as well over the weekend, perhaps to 30 mg at bedtime so long as it remains well tolerated. Continue to monitor on the inpatient unit. Continue other medications and care as ordered. Justification for Continued Inpatient Stay: High risk for decompensation in less restrictive environment. Discharge Planning: Placement versus state psychiatric hospitalization. Request Healthcare Surrogate/Guardian Advocate?: Yes
[2018-06-29] MEDS: ARIPiprazole 10 MG Tablet PO SCH (20:36)
[2018-06-30] MEDS: carBAMazepine 100 MG Chewable Tablets PO SCH ×2 (08:29→20:09)
--- NOTE | 2018-06-30 15:33 | P.PNPSY ---
Mental Status Examination Appearance: Other (Fair grooming) Consciousness: Alert Orientation: Person, Place (at least) Motor Activity: Other (No motoric abnormalities noted) Speech: Unremarkable Language: Adequate Fund of Knowledge: Adequate Attention and Concentration: Adequate Memory: Unremarkable Mood: Other (Remains dysphoric) Affect: Labile, Other (Remains childlike) Thought Process & Associations: Circumstantial Thought Content: Delusional Hallucination Type: None Delusion Type: Paranoid Suicidal Ideation: No Suicidal Plan: No Suicidal Intention: No Homicidal Ideation: No Homicidal Plan: No Homicidal Intention: No Insight: Poor Judgment: Impulsive Assessment and Plan - Plan Request Healthcare Surrogate/Guardian Advocate?: Yes
--- NOTE | 2018-06-30 15:37 | P.PNPSY ---
Subjective Remarks: Reviewed electronic medical records and discussed case with staff. Follow-up was conducted in the patient's room with MIGUEL Jo present. Patient states that he has been sleeping and eating well. He is requesting to be moved to 2600 unit which I declined to do. He states that he only became upset once today. Reports his mood as good his affect is euthymic. He is appropriate and cooperative throughout the follow-up. Mental Status Examination Appearance: Other (Fair grooming) Consciousness: Alert Orientation: Person, Place (at least) Motor Activity: Other (No motoric abnormalities noted) Speech: Unremarkable Language: Adequate Fund of Knowledge: Adequate Attention and Concentration: Adequate Memory: Unremarkable Mood: Other (Remains dysphoric) Affect: Labile, Other (Remains childlike) Thought Process & Associations: Circumstantial Thought Content: Delusional Hallucination Type: None Delusion Type: Paranoid Suicidal Ideation: No Suicidal Plan: No Suicidal Intention: No Homicidal Ideation: No Homicidal Plan: No Homicidal Intention: No Insight: Poor Judgment: Impulsive Assessment and Plan - Plan Request Healthcare Surrogate/Guardian Advocate?: Yes
--- NOTE | 2018-06-30 15:44 | P.PNPSY ---
Subjective Remarks: Reviewed electronic medical records and discussed case with staff. Follow-up was conducted in patient's room with MIGUEL Jo present. Patient reports that he has been sleeping well and has a good appetite. He states that his mood is good his affect has been euthymic. He does report that he was "set off" one time today. He requests to be moved to 2600 unit which was declined by this provider. Mental Status Examination Appearance: Other (Fair grooming) Consciousness: Alert Orientation: Person, Place (at least) Motor Activity: Other (No motoric abnormalities noted) Speech: Unremarkable Language: Adequate Fund of Knowledge: Adequate Attention and Concentration: Adequate Memory: Unremarkable Mood: Other (Remains dysphoric) Affect: Labile, Other (Remains childlike) Thought Process & Associations: Circumstantial Thought Content: Delusional Hallucination Type: None Delusion Type: Paranoid Suicidal Ideation: No Suicidal Plan: No Suicidal Intention: No Homicidal Ideation: No Homicidal Plan: No Homicidal Intention: No Insight: Poor Judgment: Impulsive Assessment and Plan - Assessment (1) Cannabis abuse Code(s): F12.10 - Cannabis abuse, uncomplicated Status: Acute (2) FAS ( alcohol syndrome) Code(s): Q86.0 - alcohol syndrome (dysmorphic) Status: Acute (3) Adjustment disorder with mixed disturbance of emotions and conduct Code(s): F43.25 - Adjustment disorder with mixed disturbance of emotions and conduct Status: Acute - Plan Plan: Patient will be reevaluated Monday by the attending psychiatrist. Continue with current treatment plan. Justification for Continued Inpatient Stay: Moving this patient to a less restrictive environment would likely result in decompensation. Request Healthcare Surrogate/Guardian Advocate?: Yes
[2018-06-30] MEDS: ARIPiprazole 10 MG Tablet PO SCH (20:09)
[2018-07-01] MEDS: carBAMazepine 100 MG Chewable Tablets PO SCH ×2 (08:51→20:02)
--- NOTE | 2018-07-01 14:44 | P.PNPSY ---
Subjective Remarks: Reviewed electronic medical records and discussed case with staff. Follow-up was conducted in the patients's room with MIGUEL Jo present. Patient is calm and cooperative. He states he needs medications, but could not articulate the reason or symptoms that he wants to treat. He states ," I want to go back and live with my mother/grandmother." Sleeping and eating well. Review of Systems All other systems reviewed negative except as stated in HPI Mental Status Examination Appearance: Other (Fair grooming) Consciousness: Alert Orientation: Person, Place (at least) Motor Activity: Other (No motoric abnormalities noted) Speech: Unremarkable Language: Adequate Fund of Knowledge: Adequate Attention and Concentration: Adequate Memory: Unremarkable Mood: Other (Remains dysphoric) Affect: Labile, Other (Remains childlike) Thought Process & Associations: Circumstantial Thought Content: Delusional Hallucination Type: None Delusion Type: Paranoid Suicidal Ideation: No Suicidal Plan: No Suicidal Intention: No Homicidal Ideation: No Homicidal Plan: No Homicidal Intention: No Insight: Poor Judgment: Impulsive Assessment and Plan - Assessment (1) Adjustment disorder with mixed disturbance of emotions and conduct Code(s): F43.25 - Adjustment disorder with mixed disturbance of emotions and conduct Status: Acute (2) Mixed personality disorder Code(s): F60.89 - Other specific personality disorders Status: Chronic - Plan Plan: Patient will be reevaluated Monday by the attending psychiatrist. Continue with current treatment plan. Justification for Continued Inpatient Stay: Moving patient to a less restrictive environment may result in his decompensation. Request Healthcare Surrogate/Guardian Advocate?: Yes
[2018-07-01] MEDS: ARIPiprazole 10 MG Tablet PO SCH (20:02)
[2018-07-02] MEDS: carBAMazepine 100 MG Chewable Tablets PO SCH ×2 (08:18→20:38)
[2018-07-02] MEDS: Haloperidol Inj 5 MG/ML Ampul IM PRN (08:35)
--- NOTE | 2018-07-02 09:44 | P.PNPSY ---
Subjective Remarks: Patient seen and examined with nurse. Chart reviewed. Case discussed with nursing staff. Patient had to be sequestered into the short hallway after yelling racial epithets to female patient. On my exam, patient presents as childlike, passive-aggressive and attention-seeking. He takes no ownership for his behavior. His insight into need for treatment and placement is quite poor. He requests a different physician, I suspect in hopes that someone else will recommend his discharge. I already presented the case to Dr. Brewer and presented case to Dr. Norman, both of whom have declined. Dr. Dempsey is not presently seeing inpatients. No side effects from medications. No physical complaints. Vital Signs Temp Pulse Resp BP Pulse Ox 07/02/18 06:00 97.4 F L 101 H 18 140/93 H 99 Intake and Output 07/02/18 07/02/18 07/02/18 06:59 14:59 22:59 Other: Weight 91.3 kg Labs reviewed. Carbamazepine level within the therapeutic range. Review of Systems All other systems reviewed negative except as stated in HPI (Limitation: Poor historian) Mental Status Examination Appearance: Other (Fair grooming) Consciousness: Alert Orientation: Person, Place (at least) Motor Activity: Other (No abnormal motor movements noted) Speech: Unremarkable Language: Adequate Fund of Knowledge: Adequate Attention and Concentration: Adequate Memory: Unremarkable Mood: Oppositional, Irritable Affect: Labile, Other (Childlike) Thought Process & Associations: Circumstantial Thought Content: Preoccupations Hallucination Type: None Delusion Type: None Suicidal Ideation: No Homicidal Ideation: No Insight: Poor Judgment: Impulsive Assessment and Plan - Assessment (1) Adjustment disorder with mixed disturbance of emotions and conduct Code(s): F43.25 - Adjustment disorder with mixed disturbance of emotions and conduct Status: Acute (2) Cannabis abuse Code(s): F12.10 - Cannabis abuse, uncomplicated Status: Acute (3) Mixed personality disorder Code(s): F60.89 - Other specific personality disorders Status: Chronic (4) FAS ( alcohol syndrome) Code(s): Q86.0 - alcohol syndrome (dysmorphic) Status: Acute (5) Mild neurocognitive disorder Code(s): G31.84 - Mild cognitive impairment, so stated Status: Acute - Plan Plan: Titrate Abilify to 30 mg at bedtime to target ongoing psychiatric symptoms. Continue carbamazepine as ordered. Continue to monitor on the high acuity unit. Continue other medications and care as ordered. Justification for Continued Inpatient Stay: Medication changes. Impairment in social function. High risk for decompensation in less restrictive environment. Discharge Planning: Placement versus state psychiatric hospitalization Request Healthcare Surrogate/Guardian Advocate?: Yes
[2018-07-02] MEDS: ARIPiprazole 10 MG Tablet PO SCH (20:38)
[2018-07-03] MEDS: carBAMazepine 100 MG Chewable Tablets PO SCH ×2 (08:33→20:10)
--- NOTE | 2018-07-03 13:01 | P.PNPSY ---
Subjective Remarks: Reviewed electronic medical records and discussed case with staff. Follow-up was conducted in the hallway. Patient continues to be discharged focused. When asked how he slept he stated "efficiently" states that he is eating okay. He requests to be moved to another unit which was declined. He requested another psychiatrist and was informed that all of the other psychiatrist had declined the offer to take care of him. He is extremely childlike, intrusive, and needy. Mental Status Examination Appearance: Other (Fair grooming) Consciousness: Alert Orientation: Person, Place (at least) Motor Activity: Other (No abnormal motor movements noted) Speech: Unremarkable Language: Adequate Fund of Knowledge: Adequate Attention and Concentration: Adequate Memory: Unremarkable Mood: Oppositional, Irritable Affect: Labile, Other (Childlike) Thought Process & Associations: Circumstantial Thought Content: Preoccupations Hallucination Type: None Delusion Type: None Suicidal Ideation: No Suicidal Plan: No Suicidal Intention: No Homicidal Ideation: No Homicidal Plan: No Homicidal Intention: No Insight: Poor Judgment: Impulsive Assessment and Plan - Assessment (1) Cannabis abuse Code(s): F12.10 - Cannabis abuse, uncomplicated Status: Acute (2) FAS ( alcohol syndrome) Code(s): Q86.0 - alcohol syndrome (dysmorphic) Status: Acute (3) Adjustment disorder with mixed disturbance of emotions and conduct Code(s): F43.25 - Adjustment disorder with mixed disturbance of emotions and conduct Status: Acute - Plan Plan: Patient will be reevaluated tomorrow by the attending psychiatrist. Continue with current treatment plan. Justification for Continued Inpatient Stay: Moving this patient to a less restrictive environment would likely result in decompensation. Request Healthcare Surrogate/Guardian Advocate?: Yes
[2018-07-03] MEDS: ARIPiprazole 10 MG Tablet PO SCH (20:10)
[2018-07-04] MEDS: carBAMazepine 100 MG Chewable Tablets PO SCH ×2 (08:15→21:36)
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
[2018-07-04] MEDS: ARIPiprazole 10 MG Tablet PO SCH (21:36)
[2018-07-05] MEDS: carBAMazepine 100 MG Chewable Tablets PO SCH ×2 (08:56→21:24)
--- NOTE | 2018-07-05 12:40 | P.PNPSY ---
Subjective Remarks: Patient seen and examined with nurse. Chart reviewed. Case discussed with nursing staff and counselor. On my examination today, the patient remains sarcastic and somewhat oppositional. He is fixated on discharge home to his grandmother. He exhibits concreteness of thought along with black/white thinking and a tendency to catastrophize. No psychotic material. No side effects from medications. No physical complaints. Vital Signs Temp Pulse Resp BP Pulse Ox 07/05/18 05:50 98.1 F 16 L 16 140/68 96 07/04/18 16:51 97.9 F 90 17 138/92 H 99 Intake and Output 07/05/18 07/05/18 07/05/18 06:59 14:59 22:59 Other: Weight 92.5 kg Labs reviewed. No new labs. Review of Systems All other systems reviewed negative except as stated in HPI Mental Status Examination Appearance: Appropriate Consciousness: Alert Orientation: Person, Place (at least) Motor Activity: Other (No abnormal motor movements noted) Speech: Unremarkable Language: Adequate Fund of Knowledge: Adequate Attention and Concentration: Adequate Memory: Unremarkable Mood: Oppositional Affect: Other (Childlike) Thought Process & Associations: Circumstantial Thought Content: Preoccupations (With discharge) Hallucination Type: None Delusion Type: None Suicidal Ideation: No Suicidal Plan: No Suicidal Intention: No Homicidal Ideation: No Homicidal Plan: No Homicidal Intention: No Insight: Poor Judgment: Impulsive (And quite poor) Assessment and Plan - Assessment (1) Adjustment disorder with mixed disturbance of emotions and conduct Code(s): F43.25 - Adjustment disorder with mixed disturbance of emotions and conduct Status: Acute (2) Cannabis abuse Code(s): F12.10 - Cannabis abuse, uncomplicated Status: Acute (3) 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 Continue to monitor on the inpatient unit. Continue other medications and care as ordered. Justification for Continued Inpatient Stay: High risk for decompensation in less restrictive environment. Discharge Planning: State hospitalization. Case discussed with counselor, unlikely that we will be able to identify placement other than state hospitalization that will be able to meet the patient's needs. Request Healthcare Surrogate/Guardian Advocate?: Yes
[2018-07-05] MEDS: ARIPiprazole 10 MG Tablet PO SCH (21:24)
[2018-07-06] MEDS: carBAMazepine 100 MG Chewable Tablets PO SCH ×2 (09:12→21:23)
--- NOTE | 2018-07-06 09:23 | P.PNPSY ---
Subjective Remarks: Patient seen and examined with counselor. Chart reviewed. Case discussed with nursing staff. Case discussed in treatment team. On my examination today, the patient remains childlike but is fairly calm and cooperative with interview. He makes odd statements at times but thought process is generally linear. No psychotic material. No side effects from medications. No physical complaints. We did discuss discharge plan with patient. Vital Signs Temp Pulse Resp BP Pulse Ox 07/06/18 05:24 98.7 F 83 17 145/79 H 99 07/05/18 17:02 98.0 F 96 H 16 146/89 H 98 Labs reviewed. No new labs. Review of Systems All other systems reviewed negative except as stated in HPI Mental Status Examination Appearance: Appropriate Consciousness: Alert Orientation: Person, Place (at least) Motor Activity: Other (No motoric abnormalities noted) Speech: Unremarkable Language: Adequate Fund of Knowledge: Adequate Attention and Concentration: Adequate Memory: Unremarkable Mood: Other (Calm) Affect: Blunt, Other (Childlike) Thought Process & Associations: Linear Thought Content: Bizarre thinking (At times) Hallucination Type: None Delusion Type: None Suicidal Ideation: No Suicidal Plan: No Suicidal Intention: No Homicidal Ideation: No Homicidal Plan: No Homicidal Intention: No Insight: Poor Judgment: Impulsive (And quite poor) Assessment and Plan - Assessment (1) Adjustment disorder with mixed disturbance of emotions and conduct Code(s): F43.25 - Adjustment disorder with mixed disturbance of emotions and conduct Status: Acute (2) Cannabis abuse Code(s): F12.10 - Cannabis abuse, uncomplicated Status: Acute (3) 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 Continue to monitor on the inpatient unit. Continue other medications and care as ordered. Justification for Continued Inpatient Stay: High risk for decompensation in less restrictive environment Discharge Planning: Anticipate need for state hospitalization although placement remains an option. Possible transfer to [facility] to await state psychiatric hospitalization. Request Healthcare Surrogate/Guardian Advocate?: Yes
--- NOTE | 2018-07-06 13:47 | P.TTN ---
- Patient Problems Problems: 1. Discharge planning 2. Medication compliance 3. Knowledge deficit 4. Lack of coping skills - Progress Toward Goals Provider Present: Dr. Jose Carlos Timmons (Patient needs to remain for further stabilization, we will take patient to court on , June 28, 2018, Dr. Bustamante will see patient for neuro evaluation. July 06, 2018, patient remains for further stabilization in hopes of having the patient transferred to [facility] to await state hospitalization as soon as possible.) Psychiatric Counselors Present: Rustam Washburn Jr., [facility] (Rustam will contact [facility] case sealer Ashutosh to testify in court on . Counselor and Darlene Ortez [facility] are working on having the patient transferred to [facility] to await state hospitalization. Karthikeyan Bass from [facility] will assist with the transfer.) Group Spec/RT/OT/ONOFRE Present: ARMEN Gonsales (Patient attends select groups.), JEMIMA Sanchez (Patient attends group) - Documentation Teaching Recipient: Patient
[2018-07-06] MEDS: ARIPiprazole 10 MG Tablet PO SCH (21:23)
[2018-07-07] MEDS: carBAMazepine 100 MG Chewable Tablets PO SCH ×2 (09:22→20:43)
--- NOTE | 2018-07-07 17:05 | P.PNPSY ---
Subjective Remarks: Reviewed electronic medical records and discussed case with staff. Follow-up was conducted in the day room with MIGUEL Smyth present. Nurse reports he has had no behavioral issues today. He states that he feels happy has been sleeping and eating good denies any side effects from his medications. Mental Status Examination Appearance: Appropriate Consciousness: Alert Orientation: Person, Place (at least) Motor Activity: Other (No motoric abnormalities noted) Speech: Unremarkable Language: Adequate Fund of Knowledge: Adequate Attention and Concentration: Adequate Memory: Unremarkable Mood: Other (Calm) Affect: Blunt, Other (Childlike) Thought Process & Associations: Linear Thought Content: Bizarre thinking (At times) Hallucination Type: None Delusion Type: None Suicidal Ideation: No Suicidal Plan: No Suicidal Intention: No Homicidal Ideation: No Homicidal Plan: No Homicidal Intention: No Insight: Poor Judgment: Impulsive (And quite poor) Assessment and Plan - Assessment (1) Cannabis abuse Code(s): F12.10 - Cannabis abuse, uncomplicated Status: Acute (2) FAS ( alcohol syndrome) Code(s): Q86.0 - alcohol syndrome (dysmorphic) Status: Acute (3) Adjustment disorder with mixed disturbance of emotions and conduct Code(s): F43.25 - Adjustment disorder with mixed disturbance of emotions and conduct Status: Acute - Plan Plan: Patient will be reevaluated Monday by the attending psychiatrist. Continue with current treatment plan. Justification for Continued Inpatient Stay: Moving this patient to a less restrictive environment would likely result in decompensation. Request Healthcare Surrogate/Guardian Advocate?: Yes
[2018-07-07] MEDS: ARIPiprazole 10 MG Tablet PO SCH (20:43)
[2018-07-08] MEDS: carBAMazepine 100 MG Chewable Tablets PO SCH ×2 (10:47→20:11)
--- NOTE | 2018-07-08 19:02 | P.PNPSY ---
Subjective Remarks: Reviewed electronic medical records and discussed case with staff. Follow-up was conducted in the day room. The nurse reports that patient has been compliant with his medications and had no behavioral disturbances. There is some concern that he is getting a little close with a female patient on the unit. Patient states that he sleeping well and his appetite is been good. He denies any side effects from medications. Mental Status Examination Appearance: Appropriate Consciousness: Alert Orientation: Person, Place (at least) Motor Activity: Other (No motoric abnormalities noted) Speech: Unremarkable Language: Adequate Fund of Knowledge: Adequate Attention and Concentration: Adequate Memory: Unremarkable Mood: Other (Calm) Affect: Blunt, Other (Childlike) Thought Process & Associations: Linear Thought Content: Bizarre thinking (At times) Hallucination Type: None Delusion Type: None Suicidal Ideation: No Suicidal Plan: No Suicidal Intention: No Homicidal Ideation: No Homicidal Plan: No Homicidal Intention: No Insight: Poor Judgment: Impulsive (And quite poor) Assessment and Plan - Assessment (1) Cannabis abuse Code(s): F12.10 - Cannabis abuse, uncomplicated Status: Acute (2) FAS ( alcohol syndrome) Code(s): Q86.0 - alcohol syndrome (dysmorphic) Status: Acute (3) Adjustment disorder with mixed disturbance of emotions and conduct Code(s): F43.25 - Adjustment disorder with mixed disturbance of emotions and conduct Status: Acute - Plan Plan: Patient will be reevaluated Monday by the attending psychiatrist. Continue with current treatment plan. Justification for Continued Inpatient Stay: Moving this patient to a less restrictive environment would likely result in decompensation. Request Healthcare Surrogate/Guardian Advocate?: Yes
[2018-07-08] MEDS: ARIPiprazole 10 MG Tablet PO SCH (20:12)
[2018-07-09] MEDS: carBAMazepine 100 MG Chewable Tablets PO SCH ×2 (08:34→21:11)
--- NOTE | 2018-07-09 10:22 | P.PNPSY ---
Subjective Remarks: Patient seen and examined with nurse. Chart reviewed. Case discussed with nursing staff. Case discussed with counselor. On my examination today, the patient is more or less unchanged. He remains quite childlike and impulsive. No psychotic material. Thought disorder seems to be improved versus admission. Denies side effects from medications. No physical complaints. We discussed patient's discharge plan. Vital Signs Temp Pulse Resp BP Pulse Ox 07/09/18 15:38 98.3 F 68 18 136/78 100 07/09/18 06:00 97.4 F L 80 18 110/56 L 95 07/08/18 18:21 98.2 F 113 H 17 140/76 98 Labs reviewed. No new labs. Review of Systems All other systems reviewed negative except as stated in HPI Mental Status Examination Appearance: Appropriate Consciousness: Alert Orientation: Person, Place (at least) Motor Activity: Other (No abnormal motor movements noted) Speech: Unremarkable Language: Adequate Fund of Knowledge: Adequate Attention and Concentration: Adequate Memory: Unremarkable Mood: Other (Calm) Affect: Blunt, Other (Remains childlike) Thought Process & Associations: Linear Thought Content: Preoccupations Hallucination Type: None Delusion Type: None Suicidal Ideation: No Homicidal Ideation: No Insight: Poor Judgment: Impulsive (And quite poor) Assessment and Plan - Assessment (1) Adjustment disorder with mixed disturbance of emotions and conduct Code(s): F43.25 - Adjustment disorder with mixed disturbance of emotions and conduct Status: Acute (2) Cannabis abuse Code(s): F12.10 - Cannabis abuse, uncomplicated Status: Acute (3) 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 Continue to monitor on the inpatient unit. Continue other medications and care as ordered. Justification for Continued Inpatient Stay: High risk for decompensation in less restrictive environment. Discharge Planning: Plan is for eventual transfer to [facility] to await [facility] psychiatric hospitalization. Request Healthcare Surrogate/Guardian Advocate?: Yes
[2018-07-09] MEDS: ARIPiprazole 10 MG Tablet PO SCH (21:11)
[2018-07-10] MEDS: carBAMazepine 100 MG Chewable Tablets PO SCH ×2 (08:53→21:09)
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
[2018-07-10] MEDS: ARIPiprazole 10 MG Tablet PO SCH (21:09)
[2018-07-11] MEDS: carBAMazepine 100 MG Chewable Tablets PO SCH ×2 (08:28→20:50)
--- NOTE | 2018-07-11 20:43 | P.PNPSY ---
Subjective Remarks: Patient seen for follow-up, chart reviewed. Discussion with nursing staff reported that patient had visit from quality assurance representative from [facility] for possible transfer while waiting for [facility] hospitalization. Patient had grandmother visit which did not go well. Patient was found lying hospital bed noted B, cooperative. Patient states that he slept well, his mood has been "happy" but at times mentioning feeling scared of some patients on the unit. Patient denies any perceptional disturbances. When asked about incident where he had made inappropriate comments to a female patient he states that he was just saying it. Patient reports tolerating medications well denying any adverse drug reactions. Review of Systems All other systems reviewed negative except as stated in HPI Mental Status Examination Appearance: Appropriate Consciousness: Alert Orientation: Person, Place (at least) Motor Activity: Other (No abnormal motor movements noted) Speech: Unremarkable Language: Adequate Fund of Knowledge: Adequate Attention and Concentration: Adequate Memory: Unremarkable Mood: Other (Calm) Affect: Blunt, Other (Remains childlike) Thought Process & Associations: Linear Thought Content: Preoccupations Hallucination Type: None Delusion Type: None Suicidal Ideation: No Suicidal Plan: No Suicidal Intention: No Homicidal Ideation: No Homicidal Plan: No Homicidal Intention: No Insight: Poor Judgment: Impulsive (And quite poor) Assessment and Plan - Assessment (1) Adjustment disorder with mixed disturbance of emotions and conduct Code(s): F43.25 - Adjustment disorder with mixed disturbance of emotions and conduct Status: Acute (2) Cannabis abuse Code(s): F12.10 - Cannabis abuse, uncomplicated Status: Acute (3) 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 We will continue current treatment. Patient to continue on the [facility] waiting list for possible transfer to [facility] in the interim. Discharge planning a progress. Justification for Continued Inpatient Stay: At risk of further decompensation at lower level care. Request Healthcare Surrogate/Guardian Advocate?: Yes
[2018-07-11] MEDS: ARIPiprazole 10 MG Tablet PO SCH (20:49)
--- NOTE | 2018-07-12 09:30 | P.PNPSY ---
Subjective Remarks: Patient seen and examined with nurse. Chart reviewed. Case discussed with nursing staff. Case discussed with counselor. On my examination today, patient is more or less unchanged. He remains somewhat childlike. His insight into his mental illness is poor. No psychotic material. No side effects from medications. No physical complaints reported. Vital Signs Temp Pulse Resp BP Pulse Ox 07/12/18 06:21 98.1 F 80 17 135/60 98 Intake and Output 07/12/18 07/12/18 07/12/18 06:59 14:59 22:59 Other: Weight 91.5 kg Labs reviewed. No new labs. Review of Systems All other systems reviewed negative except as stated in HPI Mental Status Examination Appearance: Appropriate Consciousness: Alert Orientation: Person, Place (at least) Motor Activity: Other (No motor abnormalities noted) Speech: Unremarkable Language: Adequate Fund of Knowledge: Adequate Attention and Concentration: Adequate Memory: Unremarkable Mood: Other (Calm) Affect: Blunt, Other (Remains childlike) Thought Process & Associations: Linear Thought Content: Other (Page) Hallucination Type: None Delusion Type: None Suicidal Ideation: No Homicidal Ideation: No Insight: Poor Judgment: Impulsive (And quite poor) Assessment and Plan - Assessment (1) Adjustment disorder with mixed disturbance of emotions and conduct Code(s): F43.25 - Adjustment disorder with mixed disturbance of emotions and conduct Status: Acute (2) Cannabis abuse Code(s): F12.10 - Cannabis abuse, uncomplicated Status: Acute (3) 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 Continue to monitor on the inpatient unit. Continue other medications and care as ordered. Justification for Continued Inpatient Stay: High risk for decompensation in less restrictive environment. Discharge Planning: State hospitalization. Possible transfer to [facility] to await state psychiatric hospitalization. Request Healthcare Surrogate/Guardian Advocate?: Yes
[2018-07-12] MEDS: carBAMazepine 100 MG Chewable Tablets PO SCH ×2 (09:34→21:28)
[2018-07-12] MEDS: ARIPiprazole 10 MG Tablet PO SCH (21:28)
[2018-07-13] MEDS: carBAMazepine 100 MG Chewable Tablets PO SCH ×2 (09:18→21:06)
--- NOTE | 2018-07-13 09:28 | P.TTN ---
- Patient Problems Problems: 1. Discharge planning 2. Medication compliance 3. Knowledge deficit 4. Lack of coping skills - Progress Toward Goals Provider Present: Dr. Jose Carlos Timmons (Patient needs to remain for further stabilization, we will take patient to court on , June 28, 2018, Dr. Bustamante will see patient for neuro evaluation. July 06, 2018, patient remains for further stabilization in hopes of having the patient transferred to [facility] to await state hospitalization as soon as possible. There are no med changes, patient needs to be transferred to [facility] as soon as possible.) Psychiatric Counselors Present: Sharron Juarez, [facility] (Patient has no insight , remains unstable, patient is awaiting state hospitalization as soon as possible.), Rustam Washburn Jr., [facility] (Rustam will contact [facility] case packer and sealer Ashutosh to testify in court on . Counselor and Darlene Ortez [facility] are working on having the patient transferred to [facility] to await state hospitalization. Karthikeyan Bass from [facility] will assist with the transfer.) Group Spec/RT/OT/ONOFRE Present: ARMEN Gonsales (Patient attends select groups.), JEMIMA Sanchez (Patient attends group. Patient is inappropriate at groups, needs a lot of redirection, displays mostly antisocial and disruptive behavior.) - Documentation Teaching Recipient: Patient
--- NOTE | 2018-07-13 11:13 | P.PNPSY ---
Subjective Remarks: Patient seen and examined with nurse. Chart reviewed. Case discussed with nursing staff. Case discussed in treatment team. On my examination today, the patient is more or less unchanged. He remains childlike and somewhat impulsive. Insight into mental illness and behavior is poor. No side effects from medications. No physical complaints. Patient and I discussed the discharge plan. Vital Signs Temp Pulse Resp BP Pulse Ox 07/13/18 06:24 98 F 74 16 139/79 99 07/12/18 17:25 98.9 F 90 17 123/77 96 Labs reviewed. No new labs. Review of Systems All other systems reviewed negative except as stated in HPI Mental Status Examination Appearance: Appropriate Consciousness: Alert Orientation: Person, Place (at least) Motor Activity: Other (No abnormal motor movements noted) Speech: Unremarkable Language: Adequate Fund of Knowledge: Adequate Attention and Concentration: Adequate Memory: Unremarkable Mood: Other (Calm) Affect: Blunt, Other (Again childlike) Thought Process & Associations: Linear Thought Content: Other (Remains somewhat concrete) Hallucination Type: None Delusion Type: None Suicidal Ideation: No Homicidal Ideation: No Insight: Poor Judgment: Impulsive (And quite poor) Assessment and Plan - Assessment (1) Adjustment disorder with mixed disturbance of emotions and conduct Code(s): F43.25 - Adjustment disorder with mixed disturbance of emotions and conduct Status: Acute (2) Cannabis abuse Code(s): F12.10 - Cannabis abuse, uncomplicated Status: Acute (3) Mixed personality disorder Code(s): F60.89 - Other specific personality disorders Status: Chronic (4) FAS ( alcohol syndrome) Code(s): Q86.0 - alcohol syndrome (dysmorphic) Status: Acute (5) Mild neurocognitive disorder Code(s): G31.84 - Mild cognitive impairment, so stated Status: Acute - Plan Plan: Continue to monitor on the inpatient unit. Continue current psychotropic medications as ordered. Continue other care as ordered. Justification for Continued Inpatient Stay: High risk for decompensation in less restrictive environment. Discharge Planning: State psychiatric hospitalization Request Healthcare Surrogate/Guardian Advocate?: Yes
[2018-07-13] MEDS: ARIPiprazole 10 MG Tablet PO SCH (21:06)
[2018-07-14] MEDS: carBAMazepine 100 MG Chewable Tablets PO SCH ×2 (09:29→21:15)
--- NOTE | 2018-07-14 18:35 | P.PNPSY ---
Subjective Remarks: Reviewed electronic medical records and discussed case with staff. Follow-up was conducted in the day room with MIGUEL Jo present. She reports that patient has had a good day today. He reports that he has been sleeping and eating well and states that his mood is good. His affect does seem euthymic. He denies any side effects. Is appropriate throughout the interview. Mental Status Examination Appearance: Appropriate Consciousness: Alert Orientation: Person, Place (at least) Motor Activity: Other (No abnormal motor movements noted) Speech: Unremarkable Language: Adequate Fund of Knowledge: Adequate Attention and Concentration: Adequate Memory: Unremarkable Mood: Other (Calm) Affect: Blunt, Other (Again childlike) Thought Process & Associations: Linear Thought Content: Other (Remains somewhat concrete) Hallucination Type: None Delusion Type: None Suicidal Ideation: No Suicidal Plan: No Suicidal Intention: No Homicidal Ideation: No Homicidal Plan: No Homicidal Intention: No Insight: Poor Judgment: Impulsive (And quite poor) Assessment and Plan - Assessment (1) Cannabis abuse Code(s): F12.10 - Cannabis abuse, uncomplicated Status: Acute (2) FAS ( alcohol syndrome) Code(s): Q86.0 - alcohol syndrome (dysmorphic) Status: Acute (3) Adjustment disorder with mixed disturbance of emotions and conduct Code(s): F43.25 - Adjustment disorder with mixed disturbance of emotions and conduct Status: Acute - Plan Plan: Patient will be reevaluated Monday by the attending psychiatrist. Continue with current treatment plan. Justification for Continued Inpatient Stay: Moving this patient to a less restrictive environment would likely result in decompensation. Request Healthcare Surrogate/Guardian Advocate?: Yes
[2018-07-14] MEDS: ARIPiprazole 10 MG Tablet PO SCH (21:15)
[2018-07-15] MEDS: carBAMazepine 100 MG Chewable Tablets PO SCH ×2 (08:55→20:19)
--- NOTE | 2018-07-15 16:18 | P.PNPSY ---
Subjective Remarks: Reviewed electronic medical records and discussed case with staff. Follow-up was conducted in patient's room [facility]. Patient has been spending alot of time with one female patient on the unit. Staff are aware and have redirected the two patients. Miguel Angel has been sleeping alot. He is cooperative and medication compliant. He states that the Tegretol is controlling his behavior. Review of Systems All other systems reviewed negative except as stated in HPI Mental Status Examination Appearance: Appropriate Consciousness: Alert Orientation: Person, Place (at least) Motor Activity: Other (No abnormal motor movements noted) Speech: Unremarkable Language: Adequate Fund of Knowledge: Adequate Attention and Concentration: Adequate Memory: Unremarkable Mood: Other (Calm) Affect: Blunt, Other (Again childlike) Thought Process & Associations: Linear Thought Content: Other (Remains somewhat concrete) Hallucination Type: None Delusion Type: None Suicidal Ideation: No Suicidal Plan: No Suicidal Intention: No Homicidal Ideation: No Homicidal Plan: No Homicidal Intention: No Insight: Poor Judgment: Impulsive (And quite poor) Assessment and Plan - Assessment (1) Adjustment disorder with mixed disturbance of emotions and conduct Code(s): F43.25 - Adjustment disorder with mixed disturbance of emotions and conduct Status: Acute (2) Mixed personality disorder Code(s): F60.89 - Other specific personality disorders Status: Chronic - Plan Plan: Patient will be reevaluated Monday by the attending psychiatrist. Continue with current treatment plan. Justification for Continued Inpatient Stay: Moving patient to a less restrictive environment may result in his decompensation. Request Healthcare Surrogate/Guardian Advocate?: Yes
[2018-07-15] MEDS: ARIPiprazole 10 MG Tablet PO SCH (20:19)
[2018-07-16] MEDS: carBAMazepine 100 MG Chewable Tablets PO SCH ×2 (08:05→20:40)
--- NOTE | 2018-07-16 10:54 | P.PNPSY ---
Subjective Remarks: Patient seen and examined with nurse. Chart reviewed. Case discussed with nursing staff. No change with patient. Patient did reportedly claimed that he was having a seizure while conversing with nurse this morning. Nurse assures me that the patient in no way was experiencing seizure. Case discussed with counselor. Awaiting clearance for transfer to [facility] to await [facility] psychiatric hospitalization. On my examination today, the patient remains fairly childlike. He denies SI or HI. He says "I am trying to have good notes so I can be dispositioned to my mom's." Denies side effects from medications. No physical complaints. No complaints of seizure for me. Vital Signs Temp Pulse Resp BP Pulse Ox 07/16/18 06:00 97.7 F 90 18 121/73 99 07/15/18 18:44 97.6 F 104 H 18 147/88 H 99 Intake and Output 07/15/18 07/16/18 07/16/18 22:59 06:59 14:59 Other: Weight 91.7 kg Labs reviewed. No new labs. Review of Systems All other systems reviewed negative except as stated in HPI Mental Status Examination Appearance: Appropriate Consciousness: Alert Orientation: Person, Place (at least) Motor Activity: Other (No motor abnormalities noted. No ictal activity noted.) Speech: Unremarkable Language: Adequate Fund of Knowledge: Adequate Attention and Concentration: Adequate Memory: Unremarkable Mood: Other (Calm) Affect: Blunt, Other (Remains childlike) Thought Process & Associations: Linear Thought Content: Other (Micro) Hallucination Type: None Delusion Type: None Suicidal Ideation: No Suicidal Plan: No Suicidal Intention: No Homicidal Ideation: No Homicidal Plan: No Homicidal Intention: No Insight: Poor Judgment: Impulsive (And quite poor) Assessment and Plan - Assessment (1) Adjustment disorder with mixed disturbance of emotions and conduct Code(s): F43.25 - Adjustment disorder with mixed disturbance of emotions and conduct Status: Acute (2) Cannabis abuse Code(s): F12.10 - Cannabis abuse, uncomplicated Status: Acute (3) Mixed personality disorder Code(s): F60.89 - Other specific personality disorders Status: Chronic (4) FAS ( alcohol syndrome) Code(s): Q86.0 - alcohol syndrome (dysmorphic) Status: Acute (5) Mild neurocognitive disorder Code(s): G31.84 - Mild cognitive impairment, so stated Status: Acute - Plan Plan: Continue current psychiatric medications as ordered. Continue to monitor on the inpatient unit. Continue other medications and care as ordered. Justification for Continued Inpatient Stay: Risk for decompensation in less restrictive environment. Discharge Planning: Anticipate transfer to [facility] to await state psychiatric hospitalization. Request Healthcare Surrogate/Guardian Advocate?: Yes
[2018-07-16] MEDS: ARIPiprazole 10 MG Tablet PO SCH (20:40)
[2018-07-17] MEDS: carBAMazepine 100 MG Chewable Tablets PO SCH ×2 (08:17→20:52)
--- NOTE | 2018-07-17 10:51 | P.PNPSY ---
Subjective Remarks: Patient seen and examined with nurse. Chart reviewed. Case discussed with nursing staff. Per nursing, patient acting out earlier today, wandering around unit with gown open in front until redirected by staff. Case discussed in treatment team. Patient's poor insight is noted by the therapists. On my examination today, the patient takes no ownership for his behavior earlier this morning, blaming the episode on a faulty gown. He is somewhat perseverative on discharge. Denies SI or HI. Denies side effects from medications. We once again review the discharge plan. Vital Signs Temp Pulse Resp BP 07/17/18 06:26 97.8 F 82 18 128/86 Labs reviewed. No new labs. Review of Systems All other systems reviewed negative except as stated in HPI Mental Status Examination Appearance: Appropriate Consciousness: Alert Orientation: Person, Place (at least) Motor Activity: Other (No abnormal motor movements noted.) Speech: Unremarkable Language: Adequate Fund of Knowledge: Adequate Attention and Concentration: Adequate Memory: Unremarkable Mood: Other (Calm) Affect: Blunt, Other (Childlike) Thought Process & Associations: Linear Thought Content: Other ([place]) Hallucination Type: None Delusion Type: None Suicidal Ideation: No Suicidal Plan: No Suicidal Intention: No Homicidal Ideation: No Homicidal Plan: No Homicidal Intention: No Insight: Poor Judgment: Impulsive (And poor) Assessment and Plan - Assessment (1) Adjustment disorder with mixed disturbance of emotions and conduct Code(s): F43.25 - Adjustment disorder with mixed disturbance of emotions and conduct Status: Acute (2) Cannabis abuse Code(s): F12.10 - Cannabis abuse, uncomplicated Status: Acute (3) Mixed personality disorder Code(s): F60.89 - Other specific personality disorders Status: Chronic (4) FAS ( alcohol syndrome) Code(s): Q86.0 - alcohol syndrome (dysmorphic) Status: Acute (5) Mild neurocognitive disorder Code(s): G31.84 - Mild cognitive impairment, so stated Status: Acute - Plan Plan: Continue current psychiatric medications as ordered. Continue other care as ordered. Continue to monitor on the inpatient unit. Justification for Continued Inpatient Stay: High risk for decompensation in less restrictive environment. Discharge Planning: Plan for eventual transfer to [facility] while awaiting [facility] psychiatric hospitalization. Request Healthcare Surrogate/Guardian Advocate?: Yes
[2018-07-17] MEDS: ARIPiprazole 10 MG Tablet PO SCH (20:52)
[2018-07-18] MEDS: carBAMazepine 100 MG Chewable Tablets PO SCH ×2 (09:17→20:45)
--- NOTE | 2018-07-18 11:48 | P.PNPSY ---
Subjective Remarks: Patient seen and examined with nurse. Chart reviewed. Case discussed with nursing staff. No change in patient's behavior per nursing. I find the patient more or less unchanged today as well. He remains childlike but calm and cooperative. Insight into mental illness and need for hospitalization is poor. No side effects from medications. No physical complaints. Vital Signs Temp Pulse Resp BP Pulse Ox 07/18/18 05:53 98 F 97 H 17 121/56 L 94 L 07/17/18 18:54 98.1 F 104 H 18 152/89 H 96 Labs reviewed. Review of Systems All other systems reviewed negative except as stated in HPI Mental Status Examination Appearance: Appropriate Consciousness: Alert Orientation: Person, Place (at least) Motor Activity: Other (No motor abnormalities noted) Speech: Unremarkable Language: Adequate Fund of Knowledge: Adequate Attention and Concentration: Adequate Memory: Unremarkable Mood: Other (Calm) Affect: Blunt (Remains somewhat childlike) Thought Process & Associations: Linear Thought Content: Other ([place]) Hallucination Type: None Delusion Type: None Suicidal Ideation: No Homicidal Ideation: No Insight: Poor Judgment: Impulsive (And poor) Assessment and Plan - Assessment (1) Adjustment disorder with mixed disturbance of emotions and conduct Code(s): F43.25 - Adjustment disorder with mixed disturbance of emotions and conduct Status: Acute (2) Cannabis abuse Code(s): F12.10 - Cannabis abuse, uncomplicated Status: Acute (3) Mixed personality disorder Code(s): F60.89 - Other specific personality disorders Status: Chronic (4) FAS ( alcohol syndrome) Code(s): Q86.0 - alcohol syndrome (dysmorphic) Status: Acute (5) Mild neurocognitive disorder Code(s): G31.84 - Mild cognitive impairment, so stated Status: Acute - Plan Plan: Continue to monitor on the inpatient unit. Continue current psychotropics and other care as ordered. Justification for Continued Inpatient Stay: Risk for decompensation in less restrictive environment. Discharge Planning: Plan is for transfer to [facility] psychiatric hospitalization. Request Healthcare Surrogate/Guardian Advocate?: Yes
[2018-07-18] MEDS: ARIPiprazole 10 MG Tablet PO SCH (20:45)
[2018-07-19] MEDS: carBAMazepine 100 MG Chewable Tablets PO SCH ×2 (08:26→21:04)
--- NOTE | 2018-07-19 11:00 | P.PNPSY ---
Subjective Remarks: Patient seen and examined with nurse. Chart reviewed. Case discussed with nursing staff. On my examination today, the patient is requesting titration of his carbamazepine saying that he is having issues with anger. Patient has not been noted to be objectively angry by staff, but he insists that he has subjective experience of irritability. No SI or HI voiced. No side effects from medications. No physical complaints. Vital Signs Temp Pulse Resp BP Pulse Ox 07/19/18 06:31 97.8 F 94 H 17 127/71 100 07/18/18 16:51 97.9 F 101 H 18 140/81 100 Intake and Output 07/19/18 07/19/18 07/19/18 06:59 14:59 22:59 Other: Weight 92.4 kg Labs reviewed. No new labs. Review of Systems All other systems reviewed negative except as stated in HPI Mental Status Examination Appearance: Appropriate Consciousness: Alert Orientation: Person, Place (at least) Motor Activity: Other (No motoric abnormalities noted) Speech: Unremarkable Language: Adequate Fund of Knowledge: Adequate Attention and Concentration: Adequate Memory: Unremarkable Mood: Irritable Affect: Blunt (Remains somewhat childlike) Thought Process & Associations: Linear Thought Content: Other ([place]) Hallucination Type: None Delusion Type: None Suicidal Ideation: No Homicidal Ideation: No Insight: Poor Judgment: Impulsive (And poor) Assessment and Plan - Assessment (1) Adjustment disorder with mixed disturbance of emotions and conduct Code(s): F43.25 - Adjustment disorder with mixed disturbance of emotions and conduct Status: Acute (2) Cannabis abuse Code(s): F12.10 - Cannabis abuse, uncomplicated Status: Acute (3) Mixed personality disorder Code(s): F60.89 - Other specific personality disorders Status: Chronic (4) FAS ( alcohol syndrome) Code(s): Q86.0 - alcohol syndrome (dysmorphic) Status: Acute (5) Mild neurocognitive disorder Code(s): G31.84 - Mild cognitive impairment, so stated Status: Acute - Plan Plan: Patient's most recent Tegretol level was approximately in the middle of the therapeutic range. I will titrate the patient's Tegretol to 300 mg twice daily to target subjective irritability and request a follow-up Tegretol level after the weekend. Continue to monitor on the inpatient unit. Continue other medications and care as ordered. Justification for Continued Inpatient Stay: Med changes. High risk for decompensation in less restrictive environment. Discharge Planning: Plan is for transfer to [facility] to await state psychiatric hospitalization. Request Healthcare Surrogate/Guardian Advocate?: Yes
[2018-07-19] MEDS: ARIPiprazole 10 MG Tablet PO SCH (21:04)
[2018-07-20] MEDS: carBAMazepine 100 MG Chewable Tablets PO SCH ×2 (12:13→21:55)
--- NOTE | 2018-07-20 14:53 | P.PNPSY ---
Subjective Remarks: Patient seen and examined with nurse. Chart reviewed. Case discussed with nursing staff who reports patient had verbal outburst with male tech yesterday. Tech was redirecting female patient who patient has taken a shine to, although there has been no sexually inappropriate behavior noted. Female peer will be transferred to a different unit. On my exam, patient says that he is feeling better on increased dose of Tegretol. He provides more or less the same explanation for outburst as provided by nurse. He says that he wants to move to [place] and make a new life there, although his plan seems fairly unrealistic. No side effects from medications. No physical complaints. Vital Signs Temp Pulse Resp BP Pulse Ox 07/20/18 06:14 97.2 F L 126/87 99 07/19/18 17:02 97.8 F 105 H 18 132/88 100 Labs reviewed. No new labs. Review of Systems All other systems reviewed negative except as stated in HPI Mental Status Examination Appearance: Appropriate Consciousness: Alert Orientation: Person, Place (at least) Motor Activity: Other (No abnormal motor movements noted) Speech: Unremarkable Language: Adequate Fund of Knowledge: Adequate Attention and Concentration: Adequate Memory: Unremarkable Mood: Appropriate Affect: Appropriate, Euthymic (Childlike) Thought Process & Associations: Linear Thought Content: Other ([place]) Hallucination Type: None Delusion Type: None Suicidal Ideation: No Homicidal Ideation: No Insight: Poor Judgment: Impulsive (And poor) Assessment and Plan - Assessment (1) Adjustment disorder with mixed disturbance of emotions and conduct Code(s): F43.25 - Adjustment disorder with mixed disturbance of emotions and conduct Status: Acute (2) Cannabis abuse Code(s): F12.10 - Cannabis abuse, uncomplicated Status: Acute (3) Mixed personality disorder Code(s): F60.89 - Other specific personality disorders Status: Chronic (4) FAS ( alcohol syndrome) Code(s): Q86.0 - alcohol syndrome (dysmorphic) Status: Acute (5) Mild neurocognitive disorder Code(s): G31.84 - Mild cognitive impairment, so stated Status: Acute - Plan Plan: Continue increased dose of Tegretol as ordered with plans to obtain a Tegretol level after the weekend. Continue other psychotropics as ordered. Continue to monitor on the inpatient unit. Continue other care as ordered. Justification for Continued Inpatient Stay: Risk for decompensation in less restrictive environment. Discharge Planning: [facility] referral. Request Healthcare Surrogate/Guardian Advocate?: Yes
[2018-07-20] MEDS: ARIPiprazole 10 MG Tablet PO SCH (21:55)
[2018-07-21] MEDS: carBAMazepine 100 MG Chewable Tablets PO SCH ×2 (08:54→21:37)
--- NOTE | 2018-07-21 15:10 | P.PNPSY ---
Subjective Remarks: Pt seen and discussed with staff. Chart reviewed. Staff report that pt has been cooperative with care and compliant [facility]. No agitation or aggression today. No SI/HI Mental Status Examination Appearance: Appropriate Consciousness: Alert Orientation: Person, Place (at least) Motor Activity: Other (No abnormal motor movements noted) Speech: Unremarkable Language: Adequate Fund of Knowledge: Adequate Attention and Concentration: Adequate Memory: Unremarkable Mood: Appropriate Affect: Appropriate, Euthymic (Childlike) Thought Process & Associations: Linear Thought Content: Appropriate, Other Hallucination Type: None Delusion Type: None Suicidal Ideation: No Suicidal Plan: No Suicidal Intention: No Homicidal Ideation: No Homicidal Plan: No Homicidal Intention: No Insight: Poor Judgment: Impulsive (And poor) Assessment and Plan - Assessment (1) Adjustment disorder with mixed disturbance of emotions and conduct Code(s): F43.25 - Adjustment disorder with mixed disturbance of emotions and conduct Status: Acute (2) Cannabis abuse Code(s): F12.10 - Cannabis abuse, uncomplicated Status: Acute (3) Mixed personality disorder Code(s): F60.89 - Other specific personality disorders Status: Chronic (4) FAS ( alcohol syndrome) Code(s): Q86.0 - alcohol syndrome (dysmorphic) Status: Acute (5) Mild neurocognitive disorder Code(s): G31.84 - Mild cognitive impairment, so stated Status: Acute - Plan Plan: Continue current tx plan Justification for Continued Inpatient Stay: risk of decompensation Request Healthcare Surrogate/Guardian Advocate?: Yes
[2018-07-21] MEDS: ARIPiprazole 10 MG Tablet PO SCH (21:37)
[2018-07-22] MEDS: carBAMazepine 100 MG Chewable Tablets PO SCH ×2 (08:50→20:24)
--- NOTE | 2018-07-22 10:35 | P.PNPSY ---
Subjective Remarks: Chart reviewed and discussed with nursing staff. Patient is in the hallway engaging with other patients. Nursing staff report that he has been medication compliant with no behavioral concerns. He is under that impression that he is moving to [facility] to be with his biological mother and then transitioning to his own home on disability. He has poor insight. Review of Systems All other systems reviewed negative except as stated in HPI Mental Status Examination Appearance: Appropriate Consciousness: Alert Orientation: Person, Place (at least) Motor Activity: Other (No abnormal motor movements noted) Speech: Unremarkable Language: Adequate Fund of Knowledge: Adequate Attention and Concentration: Adequate Memory: Unremarkable Mood: Appropriate Affect: Appropriate, Euthymic (Childlike) Thought Process & Associations: Linear Thought Content: Appropriate, Other Hallucination Type: None Delusion Type: None Suicidal Ideation: No Suicidal Plan: No Suicidal Intention: No Homicidal Ideation: No Homicidal Plan: No Homicidal Intention: No Insight: Poor Judgment: Impulsive (And poor) Assessment and Plan - Assessment (1) Adjustment disorder with mixed disturbance of emotions and conduct Code(s): F43.25 - Adjustment disorder with mixed disturbance of emotions and conduct Status: Acute (2) Mixed personality disorder Code(s): F60.89 - Other specific personality disorders Status: Chronic - Plan Plan: Continue current tx plan Justification for Continued Inpatient Stay: Moving patient to a less restrictive environment may result in his decompensation. Request Healthcare Surrogate/Guardian Advocate?: Yes
[2018-07-22] MEDS: ARIPiprazole 10 MG Tablet PO SCH (20:24)
[2018-07-23 05:32] LABS: Albumin 3.5 g/dL (3.4-5.0)
[2018-07-23 05:34] LABS: Carbamazepine (Tegretol) 8.6 mcg/mL (4.0-12.0); Total Protein 6.8 g/dL (6.4-8.2)
[2018-07-23] MEDS: carBAMazepine 100 MG Chewable Tablets PO SCH ×2 (09:35→20:34)
--- NOTE | 2018-07-23 10:17 | P.PNPSY ---
Subjective Remarks: Patient seen and examined with nurse. Chart reviewed. Case discussed with nursing staff. Patient noted to be calm and cooperative, although it also was noted that patient egged on other patients who were agitated. Case discussed with counselor. No word on either a state hospital date or plan for transfer to [facility] to await state hospitalization. On my exam, patient is sitting alone in the dayroom. He tells me that he had a good weekend, noting that the patients washed [place] and had a discussion of who was better: vampires or werewolves. He says that his irritability is "really good" with adjustment in CBZ. No SI/ HI. Nurse discusses with patient need to not instigate peers. No side effects from medications. No physical complaints. Vital Signs Temp Pulse Resp BP Pulse Ox 07/23/18 06:00 97.4 F L 88 17 126/81 96 07/22/18 15:04 98.3 F 100 H 18 135/84 100 Laboratory Results - last 24 hr 07/23/18 04:36 Total Bilirubin 0.2 Direct Bilirubin 0.1 Indirect Bilirubin 0.1 AST 10 L ALT 26 Alkaline Phosphatase 107 Total Protein 6.8 Albumin 3.5 Carbamazepine 8.6 Labs reviewed. CBZ level within the therapeutic range. LFTs wnl. Review of Systems All other systems reviewed negative except as stated in HPI Mental Status Examination Appearance: Appropriate Consciousness: Alert Orientation: Person, Place (at least) Motor Activity: Other (No abnormal motor movements noted.) Speech: Unremarkable Language: Adequate Fund of Knowledge: Adequate Attention and Concentration: Adequate Memory: Unremarkable Mood: Appropriate Affect: Appropriate, Euthymic (remains childlike) Thought Process & Associations: Linear Thought Content: Appropriate Hallucination Type: None Delusion Type: None Suicidal Ideation: No Suicidal Plan: No Suicidal Intention: No Homicidal Ideation: No Homicidal Plan: No Homicidal Intention: No Insight: Poor Judgment: Impulsive (And poor) Assessment and Plan - Assessment (1) Adjustment disorder with mixed disturbance of emotions and conduct Code(s): F43.25 - Adjustment disorder with mixed disturbance of emotions and conduct Status: Acute (2) Cannabis abuse Code(s): F12.10 - Cannabis abuse, uncomplicated Status: Acute (3) Mixed personality disorder Code(s): F60.89 - Other specific personality disorders Status: Chronic (4) FAS ( alcohol syndrome) Code(s): Q86.0 - alcohol syndrome (dysmorphic) Status: Acute (5) Mild neurocognitive disorder Code(s): G31.84 - Mild cognitive impairment, so stated Status: Acute - Plan Plan: Continue carbamazepine and other psychotropics as ordered. Continue to monitor on the inpatient unit. Check an updated set of basic labs. Continue other meds and care as ordered. Justification for Continued Inpatient Stay: Risk for decompensation in less restrictive setting. Discharge Planning: Critical access hospital referral. Request Healthcare Surrogate/Guardian Advocate?: Yes
[2018-07-23 15:11] VITALS: RESP 18
[2018-07-23 16:31] LABS: Baso % (Auto) 0.3 % (0.0-2.0); Eos # (Auto) 0.1 th/mm3 (0.0-0.4); Eos % (Auto) 0.6 % (0.0-4.0); Hematocrit 47.4 % (39.0-51.0); Hemoglobin 16.2 gm/dL (13.0-17.0); Lymph # (Auto) 2.1 th/mm3 (1.0-4.8); Mean Corpuscular HGB Conc 34.2 % (32.0-36.0); Mean Corpuscular Hemoglobin 30.3 pg (27.0-34.0); Mean Corpuscular Volume 88.5 fL (80.0-100.0); Mean Platelet Volume 8.1 fL (7.0-11.0); Mono # (Auto) 0.8 th/mm3 (0.0-0.9); Mono % (Auto) 5.8 % (0.0-8.0); Neut # (Auto) 10.2 th/mm3 (1.8-7.7); Neut % (Auto) 77.3 % (16.0-70.0); Platelet Count 282 th/mm3 (150-450); Red Blood Count 5.36 mil/mm3 (4.50-5.90); Red Cell Distribution Width 13.7 % (11.6-17.2); White Blood Count 13.2 th/mm3 (4.0-11.0)
[2018-07-23 16:52] LABS: Anion Gap 10 meq/L (5-15); Blood Urea Nitrogen 12 mg/dL (7-18); Calcium 8.9 mg/dL (8.5-10.1); Carbon Dioxide 22.4 meq/L (21.0-32.0); Chloride 105 meq/L (98-107); Glomerular Filtration Rate Greater Than 89 mL/min (>89); Glucose,Random 101 mg/dL (74-106); Potassium 3.9 meq/L (3.5-5.1); Sodium 137 meq/L (136-145)
[2018-07-23] MEDS: ARIPiprazole 10 MG Tablet PO SCH (20:34)
[2018-07-24] MEDS: carBAMazepine 100 MG Chewable Tablets PO SCH ×2 (08:33→20:36)
--- NOTE | 2018-07-24 10:36 | P.TTN ---
- Patient Problems Problems: 1. Discharge planning 2. Medication compliance 3. Knowledge deficit 4. Lack of coping skills - Progress Toward Goals Provider Present: Dr. Jose Carlos Timmons (Patient needs to remain for further stabilization, we will take patient to court on , June 28, 2018, Dr. Bustamante will see patient for neuro evaluation. July 06, 2018, patient remains for further stabilization in hopes of having the patient transferred to [facility] to await state hospitalization as soon as possible. There are no med changes, patient needs to be transferred to [facility] as soon as possible. July 24, 2018, no med changes, patient needs to be transferred to [facility] as soon as possible to await state hospitalization.) Psychiatric Counselors Present: Sharron Juarez, [facility] (Patient has no insight , remains unstable, patient is awaiting state hospitalization as soon as possible.), Rustam Washburn Jr., [facility] (Rustam will contact [facility] major case detective Ashutosh to testify in court on . Counselor and Darlene Ortez [facility] are working on having the patient transferred to [facility] to await state hospitalization. Karthikeyan Bass from [facility] will assist with the transfer. July 24, 2018 counselor will inquire again today with [facility], counselor will assist with transfer to [facility] as soon as possible.) Group Spec/RT/OT/ONOFRE Present: ARMEN Gonsales (Patient attends select groups.), JEMIMA Sanchez (Patient attends group. Patient is inappropriate at groups, needs a lot of redirection, displays mostly antisocial and disruptive behavior. July 24, 2018 patient attends groups and typically needs redirection.) - Documentation Teaching Recipient: Patient
--- NOTE | 2018-07-24 11:59 | P.PNPSY ---
Subjective Remarks: Patient seen and examined with nurse. Chart reviewed. Case discussed with nursing staff. Case discussed in treatment team. Per counselor, no viable discharge plan other than state psychiatric hospitalization. On my examination today, the patient is a little bit more dysphoric than in previous days. He denies SI or HI. We again reviewed his discharge plan, and the patient requests a writ of habeas corpus, which the nurse will provide to him. We discuss his laboratory results. Denies side effects from medications. No physical complaints. Vital Signs Temp Pulse Resp BP Pulse Ox 07/24/18 06:10 98.1 F 74 18 127/68 99 07/23/18 15:09 98.6 F 104 H 18 133/81 99 Laboratory Results - last 24 hr 07/23/18 07/23/18 07/24/18 16:10 16:10 11:16 WBC 13.2 H RBC 5.36 Hgb 16.2 Hct 47.4 MCV 88.5 MCH 30.3 MCHC 34.2 RDW 13.7 Plt Count 282 MPV 8.1 Neut % (Auto) 77.3 H Lymph % (Auto) 16.0 [place] % (Auto) 5.8 Eos % (Auto) 0.6 Baso % (Auto) 0.3 Neut # (Auto) 10.2 H Lymph # (Auto) 2.1 [place] # (Auto) 0.8 Eos # (Auto) 0.1 Baso # (Auto) 0.0 WBC Differential . Differential Comment Auto diff final Sodium 137 Potassium 3.9 Chloride 105 Carbon Dioxide 22.4 Anion Gap 10 BUN 12 Creatinine 0.76 Estimated GFR Greater than 89 POC Glucose 201 H Random Glucose 101 Calcium 8.9 Labs reviewed. Mild leukocytosis noted without signs or symptoms of infection; this is chronic. Review of Systems All other systems reviewed negative except as stated in HPI Mental Status Examination Appearance: Appropriate Consciousness: Alert Orientation: Person, Place (at least) Motor Activity: Other (No motor abnormalities noted) Speech: Unremarkable Language: Adequate Fund of Knowledge: Adequate Attention and Concentration: Adequate Memory: Unremarkable Mood: Other (Somewhat dysphoric) Affect: Blunt, Other (Dysphoric) Thought Process & Associations: Linear Thought Content: Appropriate Hallucination Type: None Delusion Type: None Suicidal Ideation: No Suicidal Plan: No Suicidal Intention: No Homicidal Ideation: No Homicidal Plan: No Homicidal Intention: No Insight: Poor Judgment: Impulsive (And poor) Assessment and Plan - Assessment (1) Adjustment disorder with mixed disturbance of emotions and conduct Code(s): F43.25 - Adjustment disorder with mixed disturbance of emotions and conduct Status: Acute (2) Cannabis abuse Code(s): F12.10 - Cannabis abuse, uncomplicated Status: Acute (3) Mixed personality disorder Code(s): F60.89 - Other specific personality disorders Status: Chronic (4) FAS ( alcohol syndrome) Code(s): Q86.0 - alcohol syndrome (dysmorphic) Status: Acute (5) Mild neurocognitive disorder Code(s): G31.84 - Mild cognitive impairment, so stated Status: Acute - Plan Plan: Continue current psychiatric medications as ordered. Continue other medication and care as ordered. Continue to monitor on the inpatient unit. Justification for Continued Inpatient Stay: Risk for decompensation in less restrictive environment. Discharge Planning: [facility] psychiatric hospital referral. Possible transfer to [facility] to await [facility] psychiatric hospitalization. Request Healthcare Surrogate/Guardian Advocate?: Yes
[2018-07-24] MEDS: ARIPiprazole 10 MG Tablet PO SCH (20:35)
[2018-07-25 05:51] VITALS: O2SAT 98
[2018-07-25] MEDS: carBAMazepine 100 MG Chewable Tablets PO SCH ×2 (08:26→20:50)
--- NOTE | 2018-07-25 14:02 | P.PNPSY ---
Subjective Remarks: Patient seen and examined with nurse. Chart reviewed. Case discussed with nursing staff. Patient noted to have been acting out earlier today in response to a manic peer. On my examination today, the patient is calm and cooperative. He denies any SI or HI. He does complain of somewhat poor sleep and requests that we titrate his Atarax at bedtime to 100 mg to manage this symptom. Denies side effects from medications. No physical complaints. He reports that he did complete a writ. Vital Signs Temp Pulse Resp BP Pulse Ox 07/25/18 15:05 98.1 F 99 H 18 125/71 98 07/25/18 05:50 97.7 F 87 18 110/56 L 98 07/24/18 16:25 99.1 F 90 18 148/90 H 97 Labs reviewed. No new labs. Review of Systems All other systems reviewed negative except as stated in HPI Mental Status Examination Appearance: Appropriate Consciousness: Alert Orientation: Person, Place (at least) Motor Activity: Other (No abnormal motor movements noted) Speech: Unremarkable Language: Adequate Fund of Knowledge: Adequate Attention and Concentration: Adequate Memory: Unremarkable Mood: Appropriate Affect: Blunt, Other (Childlike) Thought Process & Associations: Linear Thought Content: Appropriate Hallucination Type: None Delusion Type: None Suicidal Ideation: No Suicidal Plan: No Suicidal Intention: No Homicidal Ideation: No Homicidal Plan: No Homicidal Intention: No Insight: Poor Judgment: Impulsive (And poor) Assessment and Plan - Assessment (1) Adjustment disorder with mixed disturbance of emotions and conduct Code(s): F43.25 - Adjustment disorder with mixed disturbance of emotions and conduct Status: Acute (2) Cannabis abuse Code(s): F12.10 - Cannabis abuse, uncomplicated Status: Acute (3) Mixed personality disorder Code(s): F60.89 - Other specific personality disorders Status: Chronic (4) FAS ( alcohol syndrome) Code(s): Q86.0 - alcohol syndrome (dysmorphic) Status: Acute (5) Mild neurocognitive disorder Code(s): G31.84 - Mild cognitive impairment, so stated Status: Acute - Plan Plan: Add scheduled dose of Atarax 100 mg at bedtime. Continue other psychotropics as ordered. Continue to monitor on the inpatient unit. Continue other medications and care as ordered. Justification for Continued Inpatient Stay: Medication changes. High risk for decompensation in less restrictive environment. Discharge Planning: [facility] referral. Request Healthcare Surrogate/Guardian Advocate?: Yes
[2018-07-25] MEDS: ARIPiprazole 10 MG Tablet PO SCH (20:50)
[2018-07-26 05:33] VITALS: BP 113/62; PULSE 84; TEMP 98.2
[2018-07-26] MEDS: carBAMazepine 100 MG Chewable Tablets PO SCH (08:26)
--- NOTE | 2018-07-26 10:43 | P.DSPSY ---
Psychiatry Discharge Summary Inpatient Psychiatric care?: Yes Advance Directives: No Mental Health Advance Directive: No Health Care Proxy: No - Admission Admission Date: June 23, 2018 13:36 - Admission Diagnosis (1) Adjustment disorder with mixed disturbance of emotions and conduct Code(s): F43.25 - Adjustment disorder with mixed disturbance of emotions and conduct Brief History: Chart reviewed. Pt seen and discussed with staff. Pt is a 22YOWM well known to service from previous admissions for adjustment d/o, mixed personality disorder , and substance disorder was admitted on an ex-parte taken out by family alleging that pt has been aggressive and agitated at home. Report alleges that pt has been refusing to take medications and sprayed himself with lysol, poured bleach and laundry soap in room and has been verbally abusive to grandmother with whom he lives. Upon arrival to [facility], pt was agitated and aggressive and required ETOs for safety. He exhibits poor impulse control. Pt states that he stopped taking medications and instead is using medical cannabis prescribed by a "Dr. Francisco Little". He states that he is using medication to treat seizures, ptsd, chronic pain, nausea and "all of the things it can do." He reports that 4 weeks ago he took an overdose of tegretol because he was upset. 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 He states that prior to discontinuing tegretol, his dose had been lowered to 150mg po BID by his PCP but doesn't know why. "I wasn't taking it anyway. I wanted to save the money for marijuana". He admits that mood was better controlled when he was taking seizure medications and is agreeable to restart. He states that he is angry at family because he has to pay rent and he is focused on making sure he can afford medical cannabis. He denies SI/HI. He c/ o of poor sleep since stopping medications and reports that hydroxyzine has been helpful in the past. Tobacco Use In Past 30 Days: Yes How Often Do You Have a Drink Containing Alcohol: Monthly or less Hospital Course: Patient was admitted to a locked, inpatient psychiatric unit. A neuropsychological evaluation was obtained. Appropriate precautions were in place throughout patient's hospital stay. Patient was seen and examined on the unit by psychiatry and also visited by counselor. Psychotropic medications were adjusted. Patient tolerated medication changes well without side effects. Patient continued to display impulsive behaviors and poor insight/judgment throughout his hospitalization. He was referred to the [facility] and has been accepted for transfer to [facility] to await hospitalization at the [facility]. On the day of discharge: Patient seen and examined with nurse. Chart reviewed. Case discussed with nursing staff. Case discussed with counselor. On my examination today, patient is accepting of transfer to [facility] today. He denies any suicidal or homicidal ideation. He denies any audiovisual hallucinations, and I can elicit no delusional material. He remains fairly childlike in our interaction. He denies side effects from medications. No physical complaints. Patient will be transferred to [facility] inpatient psychiatric unit today to await critical access hospital psychiatric hospitalization. Follow up care as per [facility]. - Discharge Discharge Date: 07/26/18 - Discharge Diagnosis (1) Adjustment disorder with mixed disturbance of emotions and conduct Diagnosis: Principal Code(s): F43.25 - Adjustment disorder with mixed disturbance of emotions and conduct Status: Acute (2) Cannabis abuse Diagnosis: Secondary Code(s): F12.10 - Cannabis abuse, uncomplicated Status: Acute (3) Mixed personality disorder Diagnosis: Secondary Code(s): F60.89 - Other specific personality disorders Status: Chronic (4) FAS ( alcohol syndrome) Diagnosis: Secondary Code(s): Q86.0 - alcohol syndrome (dysmorphic) Status: Acute (5) Mild neurocognitive disorder Diagnosis: Secondary Code(s): G31.84 - Mild cognitive impairment, so stated Status: Acute Discharge Disposition: Psychiatric Facility ([facility] inpatient unit) - Discharge Instructions Discharge Diet: Regular Diet Activities You Can Perform: Weight Bearing As Tolerat - Discharge Time <= 30 minutes Mental Status Examination Appearance: Appropriate Consciousness: Alert Orientation: Person, Place (at least) Motor Activity: Other (No motoric abnormalities noted) Speech: Unremarkable Language: Adequate Fund of Knowledge: Adequate Attention and Concentration: Adequate Memory: Unremarkable Mood: Appropriate Affect: Blunt, Other (Remains childlike) Thought Process & Associations: Linear Thought Content: Appropriate Hallucination Type: None Delusion Type: None Suicidal Ideation: No Suicidal Plan: No Suicidal Intention: No Homicidal Ideation: No Homicidal Plan: No Homicidal Intention: No Insight: Poor Judgment: Impulsive (And poor) Discharge/Advance Care Plan - Results Vital Signs: Last Vital Signs Temp 98.2 F 07/26/18 05:33 Pulse 84 07/26/18 05:33 Resp 18 07/26/18 05:33 BP 113/62 07/26/18 05:33 Pulse Ox 98 07/26/18 05:33 Lab Results: Laboratory Results Hemoglobin A1c 5.0 % (4.3-6.0) 06/25/18 06:06 Triglycerides 58 mg/dL (42-150) 06/25/18 06:06 Cholesterol 112 mg/dL (120-200) L 06/25/18 06:06 LDL Cholesterol, Calc 56 mg/dL (0-99) 06/25/18 06:06 HDL Cholesterol 44.5 mg/dL (40.0-60.0) 06/25/18 06:06 TSH 0.326 uIU/mL (0.358-3.740) L 06/22/18 15:34 Free T4 0.85 ng/dL (0.76-1.46) 07/02/18 17:52 Summary of Procedures: None done. Imaging: ITS Impressions Skull X-Ray 06/25/18 00:00 CONCLUSION: No evidence of fracture Pending Results: None - Medications Number of antipsychotic medications at discharge: 1 - Discharge Care Plan Goals to Promote Your Health: * To prevent worsening of your condition and complications * To maintain your health at the optimal level Directions to Meet Your Goals: Take your medications as prescribed Follow your dietary instruction Follow activity as directed Keep your appointments as scheduled Take your immunizations and boosters as scheduled If your symptoms worsen call your PCP, if no PCP go to Urgent Care Center or Emergency Room For 24/04 questions related to your inpatient stay or results of tests pending at discharge, please contact Dr. Clifton Timmons MD at [phone] Smoking is Dangerous to Your Health. Avoid second hand smoking
== END 2018-07-26 13:12 ==
LOC: NEPD 15:20 → NEDA 06-23 13:36 → H270 06-23 15:25
PROVIDERS: ADMIT Psychiatry & Neurology Psychiatry; ATTEND Psychiatry & Neurology Psychiatry